=== PATIENT | female | born 1960 | race Caucasian/White ===

== ENCOUNTER 2017-02-05 07:50 | Inpatient (IN) | payer MEDICAID ==
--- NOTE | 2017-02-04 18:42 | GHP ---
[f rep st] PREOP HISTORY AND PHYSICAL DATE OF ADMISSION: 02/05/2017 DATE OF SURGERY: February 05, 2017. CHIEF COMPLAINT: Ventral hernia. HISTORY OF PRESENT ILLNESS: Jeri is a 56-year-old woman with an incisional hernia following her c holecystectomy in 2014. She has noticed it is increasing with time and is more painful with exercise . She occasionally will have vomiting due to the pain. She is a chronic pain patient and has RSD. She is currently using a fentanyl patch. She has tried an intrathecal pain pump from 2006 to 2014. She has a midline scar from a vertical-banded gastroplasty. Despite all efforts, she continues to ga in weight. PAST MEDICAL HISTORY: Chronic neck and back pain, RSD, anxiety, depression, hypertension, obesity. PAST SURGICAL HISTORY: Bariatric surgery, cholecystectomy, wrist surgery. ALLERGIES: Codeine, Imitrex, IV contrast, Toradol. FAMILY HISTORY: Significant for lung cancer and pancreatic cancer. SOCIAL HISTORY: She denies tobacco, alcohol, or recreational drug use. She has her master's in [employer]. REVIEW OF SYSTEMS: Significant for chronic pain, nausea, vomiting, weight gain. Otherwise, 10-point review of systems is negative aside from the HPI. PHYSICAL EXAMINATION: GENERAL: Pleasant, obese, well-groomed woman. HEENT: Normocephalic, atrauma tic. No hearing deficits. Pupils equal and round. No scleral icterus. Mucous membranes moist. NE CK: Trachea midline. RESPIRATORY: Clear to auscultation bilaterally. No increased work of breathi ng. CARDIOVASCULAR: Regular rate and rhythm. No peripheral edema. ABDOMEN: Bowel sounds present. Soft, nondistended. Midline scar healed. Partially reducible hernia superior to umbilicus. Tende r to palpation. SKIN: Warm and dry. PSYCH: Mood and affect normal. NEURO: Grossly intact. IMPRESSION AND PLAN: A 56-year-old woman with an incisional hernia. We discussed open repair with vic pyle. We discussed the risks of surgery including, but not limited to, heart attack, stroke, blood cl ots, or . We discussed the risk of infection, bleeding, damage to surrounding structures, or re currence and need for additional procedures. She understands the risks and would like to proceed. S he will likely be overnight observation. She will receive the antibiotics clip on sunglasses assembler to the operating r oom. /[id number]/MODL
[2017-02-05] MEDS ORDERED: LIDOCAINE 1% 2 ML INJ ONE (08:08)
[2017-02-05] MEDS ORDERED: ceFAZolin 3 GM in D5W 100 ML IV ONE (08:11)
[2017-02-05] MEDS ORDERED: LR 1,000 ML IV ONE (08:12)
[2017-02-05] MEDS ORDERED: LIDOCAINE 1% 2 ML INJ ID PRN (08:12)
[2017-02-05] MEDS ORDERED: BUPIVACAINE 0.5% 30 ML SDV ONE (08:45)
--- NOTE | 2017-02-05 09:07 | PDHPUP ---
History & Physical Update H&P update statement: This history and physical update is based on an assessment of the patient which was completed after admission or registration (within 24 hours), but prior to the surgery/procedure. H&P update: H&P reviewed & patient examined, no change in patient's condition since H&P completed
--- NOTE | 2017-02-05 09:15 | PDANEPAE ---
ANE History of Present Illness repair of ventral hernia ANE Past Medical History - Cardiovascular History Hx Hypertension: No Hx Arrhythmias: No Hx Chest Pain: No Hx Coronary Artery / Peripheral Vascular Disease: No Hx CHF / Valvular Disease: No Hx Palpitations: No - Pulmonary History Hx COPD: No Hx Asthma/Reactive Airway Disease: No Hx Recent Upper Respiratory Infection: No Hx Oxygen in Use at Home: No Hx Sleep Apnea: No Sleep Apnea Screening Result - Last Documented: Positive Pulmonary History Comment: POS HX SLEEP APNEA - HAD CORRECTIVE ENT SURG BUT STILL SNORES - Neurologic History Hx Cerebrovascular Accident: No Hx Seizures: No Hx Dementia: No - Endocrine History Hx Diabetes: No Obesity: severe - Renal History Hx Renal Disorders: No - Liver History Hx Hepatic Disorders: Yes Hepatic History Comment: CHOLECYSTECTOMY - Neurological & Psychiatric Hx Hx Neurological and Psychiatric Disorders: Yes Neurological / Psychiatric History Comment: CHRONIC PAIN / DEPRESSION, anxiety - Cancer History Hx Cancer: No - Congenital Disorder History Hx Congenital Disorders: No - GI History GERD: no Hx Gastrointestinal Disorders: Yes Gastrointestinal History Comment: ABD PAIN W/HERNIA & NAUSEA. DIFFICULTY KEEPING FOOD DOWN - Other Health History Other Health History: NEG - Chronic Pain History Chronic Pain: Yes (CHRONIC PAIN PT W/ NECK, L ARM, CRPS) - Surgical History Prior Surgeries: CHOLECYSTECTOMY. WRIST SURGERY L. ENT SURGERY FOR APNEA. GASTROPLASTY. PAIN PUMP ABD X3 SURG & REMOVED ANE Review of Systems Review of Systems: - Exercise capacity METS (RN): 4 METS ANE Patient History - Allergies Allergies/Adverse Reactions: ketorolac tromethamine [From Toradol] Allergy (Severe, Verified 11/14/15 15:20) Hives sumatriptan [From Imitrex] Allergy (Severe, Verified 11/14/15 15:20) Unknown sumatriptan succinate [From Imitrex] Allergy (Severe, Verified 11/14/15 15:20) Unknown codeine Allergy (Intermediate, Verified 11/14/15 15:20) Rash contrast dye Allergy (Severe, Uncoded 11/14/15 15:20) Anaphylaxis - Home Medications Home Medications: Alprazolam 02/04/17 [Last Taken 02/05/17] Aspirin 02/04/17 [Last Taken 01/08/17] Dicyclomine 02/04/17 [Last Taken 01/29/17] Fentanyl 02/04/17 [Last Taken 02/03/17] Ibuprofen 02/04/17 [Last Taken 01/22/17] Promethazine HCl 02/04/17 [Last Taken 02/05/17] Oxycodone HCl 15 mg 02/05/17 [Last Taken 02/05/17] - NPO status NPO Since - Liquids (Date): 02/04/17 NPO Since - Liquids (Time): 23:30 NPO Since - Solids (Date): 11/24/11 - Anes Hx Anes Hx: post operative nausea - Smoking Hx Smoking Status: Never smoked - Alcohol Use Alcohol Use: Rarely - Family Anes Hx Family Anes Hx: none Family Hx Anesthesia Complications: NEG ANE Labs/Vital Signs - Vital Signs Blood Pressure: 113/86 Heart Rate: 97 Respiratory Rate: 16 O2 Sat (%): 94 Height: 168.91 cm Weight: 127.006 kg ANE Physical Exam - Airway Neck exam: FROM Mallampati Score: Class 2 Mouth exam: poor dentition (upper caps), abnormal chin (short TMD) - Pulmonary Pulmonary: clear to auscultation - Cardiovascular Cardiovascular: regular rate and rhythym - ASA Status ASA Status: III ANE Anesthesia Plan Anesthesia Plan: general endotracheal anesthesia
[2017-02-05] MEDS ORDERED: MIDAZOLAM 2 MG/2 ML VIAL IVP ONE ×2 (09:17)
[2017-02-05] MEDS ORDERED: SCOPOLAMINE HYDROBROMIDE 1 MG/3 DAYS PATCH TD ONE ×2 (09:17→09:25)
[2017-02-05] MEDS ORDERED: MIDAZOLAM 2 MG/2 ML VIAL ONE ×2 (09:25→09:42)
[2017-02-05] MEDS ORDERED: fentaNYL 250 MCG/5 ML INJ ONE (09:25)
[2017-02-05] MEDS ORDERED: PROPOFOL/EMULSION 500 MG/50 ML BOTTLE IV ONE ×2 (09:25→10:23)
[2017-02-05] MEDS ORDERED: KETAMINE 100 MG/10 ML SYR ONE (09:25)
[2017-02-05] MEDS ORDERED: DEXAMETHASONE 4 MG/ML VIAL ONE (09:27)
[2017-02-05] MEDS ORDERED: ROCURONIUM 50 MG/5 ML VIAL ONE ×2 (09:27→10:42)
[2017-02-05] MEDS ORDERED: PHENYLEPHRINE HCL 100 MCG/ML SYR ONE (10:52)
[2017-02-05] MEDS ORDERED: PROPOFOL 200 MG/20 ML VIAL ONE ×2 (11:26→12:13)
[2017-02-05] MEDS ORDERED: ONDANSETRON 4 MG/2 ML VIAL ONE (12:00)
[2017-02-05] MEDS ORDERED: fentaNYL 100 MCG/2 ML INJ ONE ×3 (12:04→13:45)
[2017-02-05] MEDS ORDERED: diphenhydrAMINE 25 MG CAP PO PRN (12:43)
--- NOTE | 2017-02-05 12:43 | POSTOPPROG ---
Post Op Note Date of Operation: 02/05/17 Surgeon: Dilcia Copeland Economic Adviser: yuniel mathur Anesthesiologist: ki Anesthesia: GET(General Endotracheal) Pre-op Diagnosis: incarcerated ventral hernia Post-op Diagnosis: bowel-containing complex ventral hernia Indication: 56yo F with incarcerated ventral hernia and abdominal pain Procedure: open ventral hernia repair with mesh, L myofascial component release Findings: transverse colon and small bowel incarc. in hernia, swazi-cheese defect Inf/Abcess present in the surg proc area at time of surgery?: No EBL: Minimal Drains: Octaviano Garcia
[2017-02-05] MEDS ORDERED: SUGAMMADEX SODIUM 200 MG/2 ML VIAL IVP ONE ×2 (12:44)
[2017-02-05] MEDS ORDERED: NALOXONE HCL 0.4 MG/ML INJ IVP PRN (12:45)
[2017-02-05] MEDS ORDERED: HYDROmorphONE/DILAUDID 1 MG/ML INJ ONE ×2 (13:12→13:49)
[2017-02-05] MEDS: fentaNYL 100 MCG/2 ML INJ IVP PRN ×4 (13:14→13:59)
[2017-02-05] MEDS: HYDROmorphONE/DILAUDID 1 MG/ML INJ IVP PRN ×6 (13:16→14:13)
[2017-02-05] MEDS ORDERED: oxyCODONE IR 15 MG TAB PO ONE (14:15)
[2017-02-05] MEDS ORDERED: oxyCODONE IR 5 MG TAB ONE (14:17)
--- NOTE | 2017-02-05 15:57 | POSTANESTH ---
Post Anesthetic Evaluation Cardiovascular Status: Normal, Stable Respiratory Status: Similar to Pre-op Cond. Level of Consciousness/Mental Status: Can Participate in Eval Pain Control: Inadeq, Add Tx Required Nausea/Vomiting Control: Adequate, Prn Tx Ordered Complications Possibly Related to Anesthesia: None Noted (patient on chronic opioids, receiving additional IV/oral opioids for pain management. To step-down unit for monitoring.)
[2017-02-05] MEDS: OXYCODONE/APAP 5/325 TAB PO PRN ×2 (16:30→20:43)
[2017-02-05] MEDS ORDERED: DICYCLOMINE 10 MG CAP PO PRN (16:49)
[2017-02-05] MEDS: fentaNYL 25 MCG PATCH TD SCH (17:21)
[2017-02-05] MEDS: ONDANSETRON 4 MG/2 ML VIAL IVP PRN (20:14)
[2017-02-05] MEDS: HYDROmorphONE/DILAUDID 6 MG/30 ML PCA IV PRN (20:44)
[2017-02-05 22:04] LABS: HEMATOCRIT 43.7 % (38.0-47.0); HEMOGLOBIN 15.1 g/dL (12.6-16.3)
[2017-02-06] MEDS: oxyCODONE IR 15 MG TAB PO PRN ×3 (00:13→20:38)
[2017-02-06] MEDS: HYDROmorphONE/DILAUDID 6 MG/30 ML PCA IV PRN ×3 (05:24→20:12)
[2017-02-06] MEDS: ONDANSETRON DISINTEGRATING 4 MG TAB PO PRN ×2 (07:10→18:13)
--- NOTE | 2017-02-06 08:14 | GOP ---
[f rep st] OPERATIVE REPORT DATE OF OPERATION: 02/05/2017 SURGEON: Dilcia Copeland MD HOSPICE CARE CONSULTANT: LORRIE Bass. ANESTHESIA: General. ANESTHESIOLOGIST: Tee Ugarte MD. PREOPERATIVE DIAGNOSIS: Incarcerated ventral hernia. POSTOPERATIVE DIAGNOSIS: Incarcerated ventral hernia. PROCEDURE PERFORMED: Open ventral hernia repair with mesh and myofascial component release on the left side. FINDINGS: Multiple hernia defects with transverse colon and small bowel contained within SPECIMENS: None. ESTIMATED BLOOD LOSS: 25 cc. INDICATIONS: The patient is a 56-year-old woman who has had previous abdominal surgery. She developed a hernia which was thought to be approximately 5 cm above her umbilicus. Intra op she had multiple dutch cheese defects containing twisted loops of transverse colon and small bowel. The patient is a 56-year- old woman who has had multiple abdominal surgeries. She presented with difficulty tolerating food and pain at the site. DESCRIPTION OF PROCEDURE: Patient was brought into the operating room, placed supine on the table, and general anesthesia was administered. Her abdomen was prepped and draped in the usual sterile fashion. I infiltrated the area with 0.5% Marcaine prior to making incisions. I used a total of 30% of 0.5% Marcaine throughout the case. I made an incision from her umbilicus cephalad and carefully dissected down through her thin subcutaneous tissue. I immediately encountered hernia sac and dissected this away from the fascia. As I was dissecting this incarcerated piece of omentum there was also a piece of transverse colon that was twisted on itself. The bowel was completely viable. I used Metzenbaum scissors to completely free this from the fascia. Once I was able to free this I could evaluate her abdomen more fully. She had a small umbilical hernia and then she had several dutch cheese defects going up almost to her xiphoid process. I enlarged her incision and I fully reduced all these hernias. Another 1 of the hernias contained a piece of small bowel. After full reduction was made it became apparent that the fascia would not reapproximate, as it had retracted laterally. I then created a preperitoneal space, dividing the layer between the anterior and posterior rectus sheath. On the left side of her abdomen I performed a myofascial release and I was able to move the fascia much more toward midline nearly approximating that. On the right side of the abdomen due to her previous abdominal surgeries. I could not perform a release. The posterior rectus sheath was also very attenuated in this area. Since where the fascia came together was very tight I then elected to place a 20 x 25 piece of composite mesh. I sewed this, anchored this into place with 8-0 Prolene sutures. I then ran Prolene between each of the interrupted sutures, so that the mesh would be taut. I was able to close the posterior rectus sheath as much as I could in places. I closed the anterior rectus sheath with #1 PDS. I placed a drain over the mesh which was sutured into place with 3-0 nylon. I closed the deep layer of the subcutaneous tissue with 0 Vicryl. I closed skin with sunny. Sterile dressings were applied. She was awakened in the operating room, extubated, transferred to PACU in stable condition. /[id number]/MODL MTDD
[2017-02-06] MEDS: ENOXAPARIN 40 MG/0.4 ML SYR SC SCH ×2 (09:32→20:12)
[2017-02-06] MEDS: ASPIRIN 81 MG CHEWABLE TAB PO SCH (09:32)
--- NOTE | 2017-02-06 11:44 | SOAPPROG ---
SOAP Progress Note Assessment/Plan: Assessment: 56-YEAR-OLD FEMALE POSTOP LARGE VENTRAL HERNIA REPAIR AFEBRILE/VITAL SIGNS STABLE/AMBULATING/POOR P. O. INTAKE SO FOR/WOUND OKAY/ LARGE KRISTYN DRAINAGE OVERALL DOING VERY WELL FOR LARGE VENTRAL HERNIA Plan: SLOWLY ADVANCE DIET 02/06/17 11:43 Objective: Vital Signs Temp Pulse Resp BP Pulse Ox 37.2 C 103 H 16 119/70 93 02/06/17 07:49 02/06/17 07:49 02/06/17 07:49 02/06/17 07:49 02/06/17 07:49 Laboratory Results 02/05/17 21:45 02/05/17 02/06/17 02/07/17 05:59 05:59 05:59 Intake Total 3099 Output Total 695 Balance 2404 ICD10 Worksheet Patient Problems: Problems Problem Status Onset Ventral hernia Acute - ICD10 Problem Qualifiers (1) Ventral hernia
[2017-02-06 13:28] LABS: HEMOGLOBIN 12.6 g/dL (12.6-16.3)
[2017-02-06 16:54] LABS: HEMATOCRIT 38.4 % (38.0-47.0); HEMOGLOBIN 12.8 g/dL (12.6-16.3)
[2017-02-06] MEDS: HYDROmorphONE/DILAUDID 4 MG TAB PO PRN (17:03)
[2017-02-06] MEDS ORDERED: ALTEPLASE 2 MG VIAL IVP PRN (18:06)
[2017-02-06] MEDS: ACETAMINOPHEN 325 MG TAB PO PRN (20:39)
[2017-02-07] MEDS: HYDROmorphONE/DILAUDID 6 MG/30 ML PCA IV PRN ×8 (00:45→23:46)
[2017-02-07 04:47] LABS: HEMATOCRIT 33.6 % (38.0-47.0); HEMOGLOBIN 11.3 g/dL (12.6-16.3)
[2017-02-07] MEDS: ASPIRIN 81 MG CHEWABLE TAB PO SCH (09:08)
[2017-02-07] MEDS: ENOXAPARIN 40 MG/0.4 ML SYR SC SCH (10:39)
[2017-02-07 14:08] LABS: HEMATOCRIT 30.5 % (38.0-47.0); HEMOGLOBIN 10.4 g/dL (12.6-16.3)
--- NOTE | 2017-02-07 16:27 | SOAPPROG ---
NANCY Progress Note Assessment/Plan: Assessment: 56-YEAR-OLD FEMALE POSTOP LARGE VENTRAL HERNIA REPAIR AFEBRILE/VITAL SIGNS STABLE/AMBULATING/POOR P. O. INTAKE SO FOR/WOUND OKAY/ LARGE KRISTYN DRAINAGE OVERALL DOING VERY WELL FOR LARGE VENTRAL HERNIA Plan: SLOWLY ADVANCE DIET 02/06/17 11:43 02/07/17 16:26 VITAL SIGNS STABLE/AFEBRILE/STILL COMPLAINS OF INCISIONAL PAIN/HEMATOCRIT DOWN TO 30%/KRISTYN DRAINAGE 150 PER SHIFT WHICH IS A DECREASE ABDOMEN SOFT WITH DECREASED BOWEL SOUNDS AND NO FLATUS/REQUIRING LOTS OF PAIN MS. Objective: Vital Signs Temp Pulse Resp BP Pulse Ox 37.4 C 104 H 19 118/63 92 02/07/17 16:00 02/07/17 16:00 02/07/17 16:00 02/07/17 16:00 02/07/17 16:00 Laboratory Results 02/07/17 14:00 02/06/17 02/07/17 02/08/17 05:59 05:59 05:59 Intake Total 3095 894 831 Output Total 026 090 140 Balance 2404 -46 360 ICD10 Worksheet Patient Problems: Problems Problem Status Onset Ventral hernia Acute - ICD10 Problem Qualifiers (1) Ventral hernia
--- NOTE | 2017-02-07 17:06 | ASMTCMCOM ---
CM Note CM Note Notes: 56 year old female admitted for ventral hernia. Has a hx of chronic neck and back pain, RSD HTN, Obesity, Anxiety, Depression. Therapies recommending home with 24hr supervision. Date Signed: 02/07/2017 05:06 PM Electronically Signed By:Kasey Vitale LCSW
[2017-02-08] MEDS: oxyCODONE IR 15 MG TAB PO PRN ×2 (00:51→06:04)
[2017-02-08] MEDS: HYDROmorphONE/DILAUDID 6 MG/30 ML PCA IV PRN ×6 (03:47→21:08)
[2017-02-08 05:18] LABS: HEMATOCRIT 28.6 % (38.0-47.0); HEMOGLOBIN 9.6 g/dL (12.6-16.3); MEAN CELL HEMOGLOBIN 33.7 pg (27.9-34.1); MEAN CELL HEMOGLOBIN CONCENTR. 33.6 g/dL (32.4-36.7); MEAN CELL VOLUME 100.4 fL (81.5-99.8); RED BLOOD CELL COUNT 2.85 10^6/uL (4.18-5.33); RED CELL DISTRIBUTION WIDTH 11.9 % (11.5-15.2)
[2017-02-08 05:41] LABS: ANION GAP 10 mEq/L (8-16); CALCIUM 8.5 mg/dL (8.5-10.4); CARBON DIOXIDE 25 mEq/l (22-31); CHLORIDE 102 mEq/L (97-110); CREATININE 0.5 mg/dL (0.6-1.0); GLOMERULAR FILTRATION RATE > 60; GLUCOSE 86 mg/dL (70-100); MAGNESIUM 1.9 mg/dL (1.6-2.3); POTASSIUM 4.1 mEq/L (3.5-5.2); SODIUM 137 mEq/L (134-144)
[2017-02-08] MEDS ORDERED: METOCLOPRAMIDE 10 MG/2 ML VIAL ONE (06:03)
[2017-02-08] MEDS: ONDANSETRON 4 MG/2 ML VIAL IVP PRN ×4 (06:05→20:42)
[2017-02-08] MEDS: HYDROmorphONE/DILAUDID 4 MG TAB PO PRN (08:18)
[2017-02-08] MEDS: ASPIRIN 81 MG CHEWABLE TAB PO SCH (08:19)
--- NOTE | 2017-02-08 10:03 | SOAPPROG ---
SOAP Progress Note Assessment/Plan: Assessment: 56-YEAR-OLD FEMALE POSTOP LARGE VENTRAL HERNIA REPAIR AFEBRILE/VITAL SIGNS STABLE/AMBULATING/POOR P. O. INTAKE SO FOR/WOUND OKAY/ LARGE OLLIE DRAINAGE OVERALL DOING VERY WELL FOR LARGE VENTRAL HERNIA Plan: SLOWLY ADVANCE DIET 02/06/17 11:43 02/07/17 16:26 VITAL SIGNS STABLE/AFEBRILE/STILL COMPLAINS OF INCISIONAL PAIN/HEMATOCRIT DOWN TO 30%/OLLIE DRAINAGE 150 PER SHIFT WHICH IS A DECREASE ABDOMEN SOFT WITH DECREASED BOWEL SOUNDS AND NO FLATUS/REQUIRING LOTS OF PAIN MS. 02/08/17 10:02 doing better today/ low grade temp/ wound improving/ abd soft with some bs/ hct 28/ ollie significant bloody drainage will add txa for bleeding Objective: Vital Signs Temp Pulse Resp BP Pulse Ox 36.9 C 97 17 113/68 97 02/08/17 07:47 02/08/17 07:47 02/08/17 07:47 02/08/17 07:47 02/08/17 07:47 Laboratory Results 02/08/17 04:50 02/08/17 04:50 02/07/17 02/08/17 02/09/17 05:59 05:59 05:59 Intake Total 894 2350.4 Output Total 940 310 Balance -46 2040.4 ICD10 Worksheet Patient Problems: Problems Problem Status Onset Ventral hernia Acute - ICD10 Problem Qualifiers (1) Ventral hernia
[2017-02-08] MEDS ORDERED: MAGNESIUM HYDROXIDE 30 ML UDCUP PO PRN (11:13)
[2017-02-08] MEDS ORDERED: LACTULOSE 20 GM/30 ML UDCUP PO PRN (11:13)
[2017-02-08] MEDS ORDERED: TRANEXAMIC ACID 1,000 MG in NS 100 ML IV ONE (11:23)
--- NOTE | 2017-02-08 12:20 | SOAPPROG ---
SOAP Progress Note Assessment/Plan: Assessment: 56yo F POD#3 s/p large ventral hernia repair with mesh. RSD and chronic pain. Pain control issues over the weekend. CIRCUS SUPERVISOR dilaudid, PO dilaudid and oxy IR, fentanyl patch. Clear liquids No flatus or BM. +BS Abdominal wall hematoma on CT yesterday. Hold lovenox. Give TXA today per Dr. Bassett H/H trending down, will continue to monitor Continue inpatient. PT and OT S: pain control issues over the weekend but pain currently controlled. No nausea. No flatus or BM. O: laying in bed, comfortable, very pleasant and conversant No increased WOB Abd +BS, softly distended, tender left abdomen, midline dressing intact. Drain thin sanguinous. Objective: Vital Signs Temp Pulse Resp BP Pulse Ox 36.7 C 100 16 129/58 H 99 02/08/17 12:00 02/08/17 12:00 02/08/17 12:00 02/08/17 12:00 02/08/17 12:00 Laboratory Results 02/08/17 04:50 02/08/17 04:50 02/07/17 02/08/17 02/09/17 05:59 05:59 05:59 Intake Total 894 2350.4 750 Output Total 940 310 30 Balance -46 2040.4 720 ICD10 Worksheet Patient Problems: Problems Problem Status Onset Ventral hernia Acute
[2017-02-08] MEDS: PROMETHAZINE HCL 25 MG/ML INJ IVP PRN ×3 (13:40→18:26)
[2017-02-08 13:57] LABS: HEMATOCRIT 29.6 % (38.0-47.0); HEMOGLOBIN 10.1 g/dL (12.6-16.3)
[2017-02-08] MEDS: BISACODYL 10 MG SUPP PR PRN (15:31)
[2017-02-08] MEDS: fentaNYL 25 MCG PATCH TD SCH (17:03)
[2017-02-08] MEDS: NS 1,000 ML IV SCH (18:40)
[2017-02-08] MEDS: METOCLOPRAMIDE 10 MG/2 ML VIAL IVP PRN ×2 (18:43→23:57)
--- NOTE | 2017-02-08 19:33 | SOAPPROG ---
[facility] Progress Note Assessment/Plan: Assessment: 56-YEAR-OLD FEMALE POSTOP LARGE VENTRAL HERNIA REPAIR AFEBRILE/VITAL SIGNS STABLE/AMBULATING/POOR P. O. INTAKE SO FOR/WOUND OKAY/ LARGE OLLIE DRAINAGE OVERALL DOING VERY WELL FOR LARGE VENTRAL HERNIA Plan: SLOWLY ADVANCE DIET 02/06/17 11:43 02/07/17 16:26 VITAL SIGNS STABLE/AFEBRILE/STILL COMPLAINS OF INCISIONAL PAIN/HEMATOCRIT DOWN TO 30%/OLLIE DRAINAGE 150 PER SHIFT WHICH IS A DECREASE ABDOMEN SOFT WITH DECREASED BOWEL SOUNDS AND NO FLATUS/REQUIRING LOTS OF PAIN MS. 02/08/17 10:02 doing better today/ low grade temp/ wound improving/ abd soft with some bs/ hct 28/ ollie significant bloody drainage will add txa for bleeding 02/08/17 19:30 called to see pt again, this time for nausea and emesis/ vomited 1.5 liters of brownish fluid/ abd soft, wound ok, afebrile, some flatus with suppository may need relistor/ will start with reglan and ng Objective: Vital Signs Temp Pulse Resp BP Pulse Ox 36.7 C 101 H 12 131/72 H 99 02/08/17 12:00 02/08/17 18:00 02/08/17 18:00 02/08/17 18:00 02/08/17 18:00 Laboratory Results 02/08/17 13:45 02/08/17 04:50 02/07/17 02/08/17 02/09/17 05:59 05:59 05:59 Intake Total 894 2350.4 1453.2 Output Total 940 310 385 Balance -46 2040.4 1068.2 ICD10 Worksheet Patient Problems: Problems Problem Status Onset Ventral hernia Acute - ICD10 Problem Qualifiers (1) Ventral hernia
[2017-02-08] MEDS ORDERED: LIDOCAINE 2% JELLY 5 ML TUBE TP ONE (19:45)
[2017-02-08] MEDS: SENNOSIDES/DOCUSATE SODIUM TAB PO SCH (20:42)
[2017-02-09] MEDS: HYDROmorphONE/DILAUDID 6 MG/30 ML PCA IV PRN ×7 (01:03→21:57)
[2017-02-09] MEDS: PROMETHAZINE HCL 25 MG/ML INJ IVP PRN ×4 (01:03→20:58)
[2017-02-09] MEDS: ONDANSETRON 4 MG/2 ML VIAL IVP PRN ×4 (02:21→18:24)
[2017-02-09] MEDS: NS 1,000 ML IV SCH ×3 (02:26→17:14)
[2017-02-09] MEDS: METOCLOPRAMIDE 10 MG/2 ML VIAL IVP PRN ×3 (06:23→23:11)
[2017-02-09] MEDS: ASPIRIN 81 MG CHEWABLE TAB PO SCH (08:14)
[2017-02-09] MEDS: SENNOSIDES/DOCUSATE SODIUM TAB PO SCH (09:37)
--- NOTE | 2017-02-09 15:54 | SOAPPROG ---
SOAP Progress Note Assessment/Plan: Assessment: 56yo F POD#4 s/p large ventral hernia repair with mesh. RSD and chronic pain. Acute on chronic pain. IMMIGRATION MANAGER dilaudid, PO dilaudid and oxy IR, fentanyl patch. NPO d/t worsening nausea/vomiting yesterday +BS and flatus. No BM. Bowel protocol AXR yesterday with ileus. NG tube placed d/t persistent nausea/vomiting. Abdominal wall hematoma -stable. Monitor H/H Continue inpatient. PT and OT S: terrible nausea and vomiting last night. symptoms improved with NG tube. Motivated to walk several times today O: laying in bed, comfortable, pleasant and conversant NG tube thin bilious output No increased WOB Abd +BS, softly distended, tender left abdomen, midline dressing intact. Drain thin sanguinous. Abdominal wall more soft than yesterday Objective: Vital Signs Temp Pulse Resp BP Pulse Ox 37.4 C 97 12 146/86 H 98 02/09/17 11:38 02/09/17 13:56 02/09/17 13:56 02/09/17 13:56 02/09/17 13:56 Laboratory Results 02/08/17 13:45 02/08/17 04:50 02/08/17 02/09/17 02/10/17 05:59 05:59 05:59 Intake Total 2350.4 3004.2 Output Total 310 1495 Balance 2040.4 1509.2 ICD10 Worksheet Patient Problems: Problems Problem Status Onset Ventral hernia Acute
[2017-02-09] MEDS: BENZOCAINE (ORAJEL) GEL 11.9GM TUBE TP PRN (16:01)
[2017-02-09] MEDS: LORazepam 2 MG/ML INJ IVP PRN (23:59)
[2017-02-10] MEDS ORDERED: LIDOCAINE 2% JELLY 5 ML TUBE ONE (01:47)
[2017-02-10] MEDS: HYDROmorphONE/DILAUDID 6 MG/30 ML PCA IV PRN ×7 (01:50→22:44)
[2017-02-10] MEDS: PROMETHAZINE HCL 25 MG/ML INJ IVP PRN (02:55)
[2017-02-10] MEDS ORDERED: LIDOCAINE 2% JELLY 5 ML TUBE TP PRN (03:12)
[2017-02-10] MEDS: METOCLOPRAMIDE 10 MG/2 ML VIAL IVP PRN ×2 (05:21→17:11)
[2017-02-10] MEDS: NS 1,000 ML IV SCH ×2 (05:32→16:33)
[2017-02-10 05:35] LABS: % IMMATURE GRANULYOCYTES 0.6 % (0.0-1.1); ABSOLUTE IMMATURE GRANULOCYTES 0.04 10^3/uL (0.00-0.10); ADD DIFF? NO; ADD MORPH? NO; ADD SCAN? NO; ATYPICAL LYMPHOCYTE FLAG 0 (0-99); FRAGMENT RBC FLAG 0 (0-99); HEMATOCRIT 28.7 % (38.0-47.0); HEMOGLOBIN 9.6 g/dL (12.6-16.3); LEFT SHIFT FLG 10 (0-99); LIPEMIA HEMOLYSIS FLAG 80 (0-99); MEAN CELL HEMOGLOBIN 33.2 pg (27.9-34.1); MEAN CELL HEMOGLOBIN CONCENTR. 33.4 g/dL (32.4-36.7); MEAN CELL VOLUME 99.3 fL (81.5-99.8); MEAN PLATELET VOLUME 10.2 fL (8.7-11.7); PLATELET CLUMPS FLAG 0 (0-99); PLATELET COUNT 242 10^3/uL (150-400); RED BLOOD CELL COUNT 2.89 10^6/uL (4.18-5.33); RED CELL DISTRIBUTION WIDTH 11.9 % (11.5-15.2)
[2017-02-10] MEDS: ONDANSETRON 4 MG/2 ML VIAL IVP PRN (07:52)
[2017-02-10] MEDS: BENZOCAINE (ORAJEL) GEL 11.9GM TUBE TP PRN ×2 (07:52→13:10)
[2017-02-10] MEDS: BISACODYL 10 MG SUPP PR PRN (10:16)
--- NOTE | 2017-02-10 11:35 | ASMTCMCOM ---
CM Note CM Note Notes: PT recommends home with 24 hour supervision and OT recommends home. Patient lives in [place] with her . Patient will most likely d/c independently. CM is available if d/c needs change. Date Signed: 02/10/2017 11:35 AM Electronically Signed By:Windy Beltran LCSW
--- NOTE | 2017-02-10 13:01 | SOAPPROG ---
SOAP Progress Note Assessment/Plan: Assessment: 56yo F POD#5 s/p large ventral hernia repair with mesh. RSD and chronic pain. Acute on chronic pain. VESSEL SCRAPPER dilaudid, PO dilaudid and oxy IR, fentanyl patch. NPO - May have a popsicle or 8oz or clear liquids tonight if NG comes out +BM and flatus today. Bowel protocol NG clamp trial - off suction x 4 hours. return to suction x1 hour. If <150 out in 1 hour may remove NG. Abdominal wall hematoma -stable. H/H stable Continue inpatient. PT and OT. Seen c Dr. Copeland S: feels like lack of sleep is contributing to intermittent negativity. O: sitting up in chait, comfortable, pleasant and conversant NG tube thin clear No increased WOB Abd +BS, softly distended, tender left abdomen, midline dressing intact. Drain thin sanguinous 02/10/17 13:59 Objective: Vital Signs Temp Pulse Resp BP Pulse Ox 37.1 C 85 14 141/78 H 97 02/10/17 12:00 02/10/17 12:00 02/10/17 12:00 02/10/17 12:00 02/10/17 12:00 Laboratory Results 02/10/17 05:20 02/08/17 04:50 02/09/17 02/10/17 02/11/17 05:59 05:59 05:59 Intake Total 3004.2 2340.4 Output Total 1495 725 155 Balance 1509.2 1615.4 -155 ICD10 Worksheet Patient Problems: Problems Problem Status Onset Ventral hernia Acute
[2017-02-10] MEDS: LORazepam 2 MG/ML INJ IVP PRN ×2 (14:15→20:41)
[2017-02-11] MEDS: HYDROmorphONE/DILAUDID 6 MG/30 ML PCA IV PRN ×7 (01:43→21:32)
[2017-02-11] MEDS: LORazepam 2 MG/ML INJ IVP PRN ×3 (03:01→20:22)
[2017-02-11] MEDS: METOCLOPRAMIDE 10 MG/2 ML VIAL IVP PRN (09:54)
--- NOTE | 2017-02-11 10:11 | SOAPPROG ---
SOAP Progress Note Assessment/Plan: Assessment: 56yo F POD#6 s/p large ventral hernia repair with mesh. RSD and chronic pain. Acute on chronic pain. 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 NPO - May have a popsicle or 8oz or clear liquids +flatus today. Bowel protocol Abdominal wall hematoma -stable. H/H stable Continue inpatient. PT and OT. Added Protonix S: Feeling well with NG tube out, trying to sleep more, pt feels like lack of sleep is contributing to intermittent negativity. Requesting suppository. Some GERD O: lying in bed, comfortable, pleasant and conversant No increased WOB Abd +quiet BS, softly distended, tender left abdomen, midline dressing intact. Drain thin sanguinous Plan: 02/11/17 10:05 02/11/17 10:27 Objective: Vital Signs Temp Pulse Resp BP Pulse Ox 37.6 C 90 18 125/76 H 95 02/11/17 07:16 02/11/17 07:16 02/11/17 07:16 02/11/17 07:16 02/11/17 07:16 Laboratory Results 02/10/17 05:20 02/08/17 04:50 02/10/17 02/11/17 02/12/17 05:59 05:59 05:59 Intake Total 2340.4 831 Output Total 725 490 Balance 1615.4 341 ICD10 Worksheet Patient Problems: Problems Problem Status Onset Ventral hernia Acute
[2017-02-11] MEDS: PANTOPRAZOLE SODIUM 40 MG VIAL IVP SCH (11:08)
[2017-02-11] MEDS: BISACODYL 10 MG SUPP PR PRN (14:24)
[2017-02-11] MEDS: fentaNYL 25 MCG PATCH TD SCH (17:44)
[2017-02-12] MEDS: HYDROmorphONE/DILAUDID 6 MG/30 ML PCA IV PRN ×5 (00:58→20:00)
[2017-02-12] MEDS: LORazepam 2 MG/ML INJ IVP PRN (03:28)
--- NOTE | 2017-02-12 08:22 | SOAPPROG ---
SOAP Progress Note Assessment/Plan: Assessment: 56yo F POD#7 s/p large ventral hernia repair with mesh. RSD and chronic pain. Acute on chronic pain. RETURNED MATERIALS INSPECTOR dilaudid, PO dilaudid and oxy IR, fentanyl patch. Transition to PO pain meds Clear liquids +BM and flatus. Bowel protocol Abdominal wall hematoma -stable. H/H stable. Recheck labs tomorrow Continue inpatient. PT and OT. Seen c Dr. Copeland S: still sleep deprived. feels restless. O: laying in bed, comfortable, pleasant and conversant No increased WOB Abd +BS, softly distended, nontender, midline incision CDI. Drain thin dark sanguinous Objective: Vital Signs Temp Pulse Resp BP Pulse Ox 37.0 C 103 H 20 143/94 H 94 02/12/17 07:43 02/12/17 07:43 02/12/17 07:43 02/12/17 07:43 02/12/17 07:43 Laboratory Results 02/10/17 05:20 02/08/17 04:50 02/11/17 02/12/17 02/13/17 05:59 05:59 05:59 Intake Total 831 1000 1200 Output Total 490 105 50 Balance 189 248 5601 ICD10 Worksheet Patient Problems: Problems Problem Status Onset Ventral hernia Acute
[2017-02-12] MEDS ORDERED: NS 1,000 ML IV SCH (08:30)
[2017-02-12] MEDS: PANTOPRAZOLE SODIUM 40 MG VIAL IVP SCH (08:32)
[2017-02-12] MEDS: HYDROmorphONE/DILAUDID 4 MG TAB PO PRN ×2 (08:47→17:35)
[2017-02-12] MEDS: D5W 1/2 NS W/ 20 KCl/L 1,000 ML IV SCH (14:37)
[2017-02-12] MEDS: SENNOSIDES/DOCUSATE SODIUM TAB PO SCH (20:05)
[2017-02-12] MEDS: ENOXAPARIN 40 MG/0.4 ML SYR SC SCH (20:05)
[2017-02-12] MEDS: POLYETHYLENE GLYCOL 3350 17 GM PKT PO PRN (20:05)
[2017-02-13] MEDS: oxyCODONE IR 15 MG TAB PO PRN (00:45)
[2017-02-13] MEDS: ONDANSETRON DISINTEGRATING 4 MG TAB PO PRN (04:16)
[2017-02-13] MEDS: HYDROmorphONE/DILAUDID 6 MG/30 ML PCA IV PRN ×3 (04:46→19:21)
[2017-02-13 06:31] LABS: % IMMATURE GRANULYOCYTES 1.4 % (0.0-1.1); ABSOLUTE IMMATURE GRANULOCYTES 0.08 10^3/uL (0.00-0.10); ADD DIFF? NO; ADD MORPH? NO; ADD SCAN? NO; ATYPICAL LYMPHOCYTE FLAG 20 (0-99); FRAGMENT RBC FLAG 0 (0-99); HEMOGLOBIN 9.5 g/dL (12.6-16.3); LEFT SHIFT FLG 10 (0-99); LIPEMIA HEMOLYSIS FLAG 90 (0-99); MEAN CELL HEMOGLOBIN 32.9 pg (27.9-34.1); MEAN CELL HEMOGLOBIN CONCENTR. 33.9 g/dL (32.4-36.7); MEAN CELL VOLUME 96.9 fL (81.5-99.8); MEAN PLATELET VOLUME 10.2 fL (8.7-11.7); PLATELET CLUMPS FLAG 10 (0-99); PLATELET COUNT 261 10^3/uL (150-400); RED BLOOD CELL COUNT 2.89 10^6/uL (4.18-5.33)
[2017-02-13 06:48] LABS: ANION GAP 7 mEq/L (8-16); CALCIUM 8.4 mg/dL (8.5-10.4); CARBON DIOXIDE 30 mEq/l (22-31); CHLORIDE 102 mEq/L (97-110); CREATININE 0.5 mg/dL (0.6-1.0); GLOMERULAR FILTRATION RATE > 60; GLUCOSE 115 mg/dL (70-100); POTASSIUM 3.7 mEq/L (3.5-5.2); SODIUM 139 mEq/L (134-144)
[2017-02-13] MEDS: METOCLOPRAMIDE 10 MG/2 ML VIAL IVP PRN ×2 (07:26→17:40)
[2017-02-13] MEDS: SENNOSIDES/DOCUSATE SODIUM TAB PO SCH ×2 (08:10→20:26)
[2017-02-13] MEDS: ENOXAPARIN 40 MG/0.4 ML SYR SC SCH ×2 (08:10→20:27)
[2017-02-13] MEDS: PANTOPRAZOLE SODIUM 40 MG VIAL IVP SCH (08:10)
[2017-02-13] MEDS: BISACODYL 10 MG SUPP PR PRN (08:11)
[2017-02-13] MEDS: D5W 1/2 NS W/ 20 KCl/L 1,000 ML IV SCH (10:36)
--- NOTE | 2017-02-13 11:07 | ASMTCMCOM ---
CM Note CM Note Notes: Plan remains the same, pt will dc home w/support of when medically stable. CM available for any changes. Date Signed: 02/13/2017 11:06 AM Electronically Signed By:Olamide Ohara RN
[2017-02-13] MEDS: ONDANSETRON 4 MG/2 ML VIAL IVP PRN (18:43)
--- NOTE | 2017-02-13 20:08 | SOAPPROG ---
SOAP Progress Note Assessment/Plan: Assessment: 56yo F s/p large ventral hernia repair with mesh. RSD and chronic pain. Acute on chronic pain. HEATING UNIT MECHANIC dilaudid - WEAN (OFF tomorrow hopefully), PO dilaudid and oxy IR, fentanyl patch. Transition to PO pain meds. Discussed pain meds with pharmacy Advance to regular diet +BM and flatus. Bowel protocol Abdominal wall hematoma -stable. H/H stable. Continue inpatient, hopefully home in next couple days when off IV pain meds. PT and OT. Discussed c Dr. Copeland S: still sleep deprived. pain controlled now but worried about discontinuing IV pain meds. +BM, no nausea, hungry O: sitting upright in chair napping but awakes easily, comfortable, pleasant and conversant No increased WOB Abd +BS, softly distended, nontender, midline incision CDI. Drain thin dark sanguinous Objective: Vital Signs Temp Pulse Resp BP Pulse Ox 36.9 C 88 18 125/89 H 96 02/13/17 19:22 02/13/17 19:22 02/13/17 19:22 02/13/17 19:22 02/13/17 19:22 Laboratory Results 02/13/17 06:15 02/13/17 06:15 02/12/17 02/13/17 02/14/17 05:59 05:59 05:59 Intake Total 1000 3050 568 Output Total 105 930 275 Balance 895 2120 293 ICD10 Worksheet Patient Problems: Problems Problem Status Onset Ventral hernia Acute
[2017-02-13] MEDS: LORazepam 2 MG/ML INJ IVP PRN (21:15)
[2017-02-14] MEDS: PROMETHAZINE HCL 25 MG/ML INJ IVP PRN ×3 (03:38→17:51)
[2017-02-14] MEDS: D5W 1/2 NS W/ 20 KCl/L 1,000 ML IV SCH (07:09)
[2017-02-14] MEDS: oxyCODONE IR 15 MG TAB PO PRN ×2 (07:37→16:36)
[2017-02-14] MEDS: SENNOSIDES/DOCUSATE SODIUM TAB PO SCH ×2 (07:37→20:30)
[2017-02-14] MEDS: ENOXAPARIN 40 MG/0.4 ML SYR SC SCH ×2 (07:38→20:31)
[2017-02-14] MEDS: POLYETHYLENE GLYCOL 3350 17 GM PKT PO PRN (07:47)
[2017-02-14] MEDS: PANTOPRAZOLE SODIUM 40 MG VIAL IVP SCH (07:47)
[2017-02-14] MEDS: HYDROmorphONE/DILAUDID 6 MG/30 ML PCA IV PRN (09:01)
[2017-02-14] MEDS: METOCLOPRAMIDE 10 MG/2 ML VIAL IVP PRN (15:12)
[2017-02-14] MEDS ORDERED: HYDROmorphONE/DILAUDID 4 MG TAB PO PRN (15:16)
[2017-02-14] MEDS ORDERED: HYDROmorphONE/DILAUDID 6 MG/30 ML PCA IV PRN (15:18)
--- NOTE | 2017-02-14 16:43 | ASMTCMCOM ---
CM Note CM Note Notes: Reviewed chart regarding discharge plan, pt's progress. PT/OT cleared pt, no needs identified. Spoke w/ Osmar from OT, pt cont to have difficulty wiping w/ bowel movements, unable to twist torso. Osmar suggested possibility of home care; discussed the fact home care would be unable to time visits according to pt's bowel needs. OT to cont to work w/ pt on ADLs. Attempted to meet w/ pt to discuss possibility of home care; pt sleeping. CM will cont to follow for any potential needs. Current discharge plan: Home independently Date Signed: 02/14/2017 04:43 PM Electronically Signed By:Gabrielle Barnett RN
--- NOTE | 2017-02-14 17:26 | SOAPPROG ---
SOAP Progress Note Assessment/Plan: Assessment: 56yo F s/p large ventral hernia repair with mesh. RSD and chronic pain. Acute on chronic pain. VP MEDICAL dilaudid - WEAN (OFF tomorrow hopefully), oxy IR, fentanyl patch. Transition to PO pain meds. Regular diet +BM and flatus. Bowel protocol Abdominal wall hematoma -stable. H/H stable. Continue inpatient, hopefully home in next couple days when off IV pain meds. PT and OT. S: pain controlled now but worried about discontinuing IV pain meds. +BM. Increased nausea today - ? related to constipation. She also reports that PO dilaudid is not a home med for her so will DC O: sitting upright in chair napping but awakes easily, comfortable, pleasant and conversant No increased WOB Abd +BS, softly distended, nontender, midline incision CDI. Drain thin dark sanguinous Objective: Vital Signs Temp Pulse Resp BP Pulse Ox 36.9 C 80 14 134/85 H 93 02/14/17 16:37 02/14/17 16:37 02/14/17 16:37 02/14/17 16:37 02/14/17 16:37 Laboratory Results 02/13/17 06:15 02/13/17 06:15 02/13/17 02/14/17 02/15/17 05:59 05:59 05:59 Intake Total 3050 1418 600 Output Total 930 715 250 Balance 2120 703 350 ICD10 Worksheet Patient Problems: Problems Problem Status Onset Ventral hernia Acute
[2017-02-14] MEDS ORDERED: fentaNYL 25 MCG PATCH TD SCH (17:30)
[2017-02-14] MEDS: LORazepam 2 MG/ML INJ IVP PRN (20:42)
[2017-02-15] MEDS: oxyCODONE IR 15 MG TAB PO PRN ×3 (00:50→17:09)
[2017-02-15] MEDS: D5W 1/2 NS W/ 20 KCl/L 1,000 ML IV SCH (03:02)
[2017-02-15] MEDS: SENNOSIDES/DOCUSATE SODIUM TAB PO SCH ×2 (09:19→20:11)
[2017-02-15] MEDS: POLYETHYLENE GLYCOL 3350 17 GM PKT PO PRN (09:19)
[2017-02-15] MEDS: ENOXAPARIN 40 MG/0.4 ML SYR SC SCH ×2 (09:20→20:12)
[2017-02-15] MEDS: PANTOPRAZOLE SODIUM 40 MG VIAL IVP SCH (09:23)
[2017-02-15] MEDS: PROMETHAZINE HCL 25 MG/ML INJ IVP PRN (10:43)
--- NOTE | 2017-02-15 10:50 | ASMTCMCOM ---
CM Note CM Note Notes: CM met w/ pt for dispo planning. Pt reports that OT has ordered her a "butt wiper". Pt does not anticipate having any needs. CM available for changes. Plan: Independent Date Signed: 02/15/2017 10:50 AM Electronically Signed By:SHARATH Long
--- NOTE | 2017-02-15 12:35 | SOAPPROG ---
SOAP Progress Note Assessment/Plan: Assessment/Plan: - 56yo F s/p complex ventral hernia repair - VSS, HDS - pain controlled, weaning TABLEAU ANALYST today in favor of IV push - Tolerating diet, nausea seems to be correlated with BMs and when not moving them it appears worse - OOB, ambulate. Wean TABLEAU ANALYST - 02/15/17 12:33 Subjective: doing ok, having some nausea but controlled and she is tolerating some PO intake Objective: Vital Signs Temp Pulse Resp BP Pulse Ox 37.1 C 84 12 159/96 H 96 02/15/17 12:00 02/15/17 12:00 02/15/17 12:00 02/15/17 12:00 02/15/17 12:00 Laboratory Results 02/13/17 06:15 02/13/17 06:15 02/14/17 02/15/17 02/16/17 05:59 05:59 05:59 Intake Total 1418 1723 Output Total 715 280 10 Balance 703 1443 -10 ICD10 Worksheet Patient Problems: Problems Problem Status Onset Ventral hernia Acute
[2017-02-15] MEDS: ONDANSETRON DISINTEGRATING 4 MG TAB PO PRN ×2 (14:17→20:10)
[2017-02-15] MEDS: fentaNYL 50 MCG PATCH TD SCH (14:18)
[2017-02-15] MEDS: HYDROmorphONE/DILAUDID 1 MG/ML INJ IVP PRN ×4 (14:32→23:22)
[2017-02-15] MEDS: LORazepam 2 MG/ML INJ IVP PRN (20:11)
[2017-02-16] MEDS: HYDROmorphONE/DILAUDID 1 MG/ML INJ IVP PRN ×3 (07:00→19:24)
[2017-02-16] MEDS: PANTOPRAZOLE SODIUM 40 MG VIAL IVP SCH (08:32)
[2017-02-16] MEDS: ENOXAPARIN 40 MG/0.4 ML SYR SC SCH ×2 (08:32→20:23)
[2017-02-16] MEDS: SENNOSIDES/DOCUSATE SODIUM TAB PO SCH ×2 (08:35→20:23)
--- NOTE | 2017-02-16 10:42 | SOAPPROG ---
SOAP Progress Note Assessment/Plan: Assessment: 56yo F s/p large ventral hernia repair with mesh. RSD and chronic pain. Acute on chronic pain. On po pain meds and patch Regular diet Had emesis again last night - having gas and bowel movements. Also described emesis pre-op. Will check abdominal x ray Abdominal wall hematoma -stable. Continue inpatient. PT and OT. S: Had emesis again last evening. Eating well without discomfort. Having a lot of gas and large BMs. O: Sitting in bed, cheerful Lungs CTAB Regular rate BS present Much softer Incision cdi Dark serosanguinous fluid in KRISTYN drain Plan: 02/11/17 10:05 02/11/17 10:27 02/16/17 10:39 Objective: Vital Signs Temp Pulse Resp BP Pulse Ox 36.7 C 71 16 121/70 H 96 02/16/17 07:32 02/16/17 07:32 02/16/17 07:32 02/16/17 07:32 02/16/17 07:32 Laboratory Results 02/13/17 06:15 02/13/17 06:15 02/15/17 02/16/17 02/17/17 05:59 05:59 05:59 Intake Total 1723 1425 Output Total 280 113 Balance 1443 1312 ICD10 Worksheet Patient Problems: Problems Problem Status Onset Ventral hernia Acute
[2017-02-16] MEDS: oxyCODONE IR 15 MG TAB PO PRN (14:45)
[2017-02-16] MEDS: ONDANSETRON DISINTEGRATING 4 MG TAB PO PRN (18:32)
[2017-02-16] MEDS: LORazepam 2 MG/ML INJ IVP PRN (20:23)
[2017-02-17] MEDS: HYDROmorphONE/DILAUDID 1 MG/ML INJ IVP PRN ×4 (02:39→17:53)
[2017-02-17] MEDS: LORazepam 2 MG/ML INJ IVP PRN ×2 (04:59→21:45)
[2017-02-17 05:23] LABS: ADD DIFF? YES; ADD MORPH? NO; ADD SCAN? NO; ATYPICAL LYMPHOCYTE FLAG 40 (0-99); FRAGMENT RBC FLAG 0 (0-99); HEMATOCRIT 29.9 % (38.0-47.0); LEFT SHIFT FLG 30 (0-99); LIPEMIA HEMOLYSIS FLAG 80 (0-99); MEAN CELL HEMOGLOBIN 32.9 pg (27.9-34.1); MEAN CELL HEMOGLOBIN CONCENTR. 33.4 g/dL (32.4-36.7); MEAN CELL VOLUME 98.4 fL (81.5-99.8); MEAN PLATELET VOLUME 10.6 fL (8.7-11.7); PLATELET CLUMPS FLAG 10 (0-99); PLATELET COUNT 320 10^3/uL (150-400); RED BLOOD CELL COUNT 3.04 10^6/uL (4.18-5.33); RED CELL DISTRIBUTION WIDTH 12.2 % (11.5-15.2)
[2017-02-17 05:40] LABS: ALANINE AMINOTRANSFERASE 51 IU/L (9-52); ALBUMIN 2.6 g/dL (3.5-5.0); ALKALINE PHOSPHATASE 52 IU/L (38-126); ANION GAP 5 mEq/L (8-16); ASPARTATE AMINOTRANSFERASE 32 IU/L (14-46); CARBON DIOXIDE 32 mEq/l (22-31); CHLORIDE 100 mEq/L (97-110); CREATININE 0.6 mg/dL (0.6-1.0); GLOMERULAR FILTRATION RATE > 60; GLUCOSE 92 mg/dL (70-100); POTASSIUM 3.9 mEq/L (3.5-5.2); SODIUM 137 mEq/L (134-144); TOTAL PROTEIN 4.9 g/dL (6.3-8.2)
[2017-02-17 05:56] LABS: CALCIUM 8.5 mg/dL (8.5-10.4)
[2017-02-17 06:18] LABS: GIANT PLATELETS PRESENT; LARGE PLATELETS PRESENT; POLYCHROMASIA 1+; TOXIC GRANULATION PRESENT
[2017-02-17 06:19] LABS: BILIRUBIN,TOTAL 0.5 mg/dL (0.1-1.4); PLATELET ESTIMATE ADEQUATE (ADEQ)
[2017-02-17] MEDS: PANTOPRAZOLE SODIUM 40 MG VIAL IVP SCH (09:06)
[2017-02-17] MEDS: ENOXAPARIN 40 MG/0.4 ML SYR SC SCH ×2 (09:06→21:44)
[2017-02-17] MEDS: SENNOSIDES/DOCUSATE SODIUM TAB PO SCH ×2 (09:07→21:43)
--- NOTE | 2017-02-17 10:18 | SOAPPROG ---
SOAP Progress Note Assessment/Plan: Assessment: 56yo F s/p large ventral hernia repair with mesh. RSD and chronic pain. Acute on chronic pain. Now off VP CARDIOVASCULAR - PRN IV dilaudid, oxy IR, fentanyl patch. Transition to PO pain meds. Regular diet +BM and flatus Abdominal wall hematoma -stable. H/H improving. Continue inpatient, hopefully home in next couple days when off IV pain meds. PT and OT. S: feeling well, no new complaints today. feels like pain is well controlled without VP CARDIOVASCULAR. Now having diarrhea O: laying in bed, comfortable, pleasant and conversant No increased WOB Abd +BS, softly distended, nontender, midline incision CDI. Drain thin dark sanguinous. Ecchymosis stable Objective: Vital Signs Temp Pulse Resp BP Pulse Ox 36.6 C 77 15 116/66 94 02/17/17 08:00 02/17/17 08:00 02/17/17 08:00 02/17/17 08:00 02/17/17 08:00 Laboratory Results 02/17/17 05:00 02/17/17 05:00 02/16/17 02/17/17 02/18/17 05:59 05:59 05:59 Intake Total 1425 1355 Output Total 113 110 Balance 1312 1245 ICD10 Worksheet Patient Problems: Problems Problem Status Onset Ventral hernia Acute
--- NOTE | 2017-02-17 10:57 | ASMTCMCOM ---
CM Note CM Note Notes: Plan remains the same, pt will dc home w/support of when medically stable. CM available for any changes. Date Signed: 02/17/2017 10:57 AM Electronically Signed By:Olamide Ohara RN
[2017-02-17] MEDS: oxyCODONE IR 15 MG TAB PO PRN (14:47)
--- NOTE | 2017-02-17 20:18 | WOCRNPDOC ---
WOCRN Advanced Assessment Note - Skin Integrity Problem, Advanced Assess Left Ear Pressure Injury Dressing Type: Open to Air Wound Bed Constitution: Red/[place] - Non Granular Tissue, Loose Slough Site Measurement - Head-to-Toe Length X Width X Depth (cm): 0.3x0.3x0.2 Pressure Injury Stage: Stage 3, Labeler Related Pressure Injury (oxygen tubing) Pressure Injury Present on Admit: No Skin Integrity Problem Comment: Thin layer of slough removed revealing a red wound base. This wound is full thickness. Oxygen tubing cushions are in place.
[2017-02-17] MEDS: PROMETHAZINE HCL 25 MG/ML INJ IVP PRN (21:45)
[2017-02-18] MEDS: HYDROmorphONE/DILAUDID 1 MG/ML INJ IVP PRN (05:55)
--- NOTE | 2017-02-18 08:05 | SOAPPROG ---
SOAP Progress Note Assessment/Plan: Assessment: 56yo F s/p large ventral hernia repair with mesh. RSD and chronic pain. Acute on chronic pain. On po pain meds and patch Regular diet Had emesis again last night - having gas and bowel movements. Also described emesis pre-op. Will get CT scan. Abdominal wall hematoma resolving Continue inpatient. PT and OT. S: Had emesis again last evening. Eating well without discomfort. Having a lot of gas and large BMs. O: Sitting in bed, cheerful Lungs CTAB Regular rate BS present Much softer Incision cdi Dark serosanguinous fluid in KRISTYN drain Plan: 02/11/17 10:05 02/11/17 10:27 02/16/17 10:39 02/18/17 08:05 Objective: Vital Signs Temp Pulse Resp BP Pulse Ox 36.7 C 81 16 113/70 95 02/18/17 04:00 02/18/17 04:00 02/18/17 04:00 02/18/17 04:00 02/18/17 04:00 Laboratory Results 02/17/17 05:00 02/17/17 05:00 02/17/17 02/18/17 02/19/17 05:59 05:59 05:59 Intake Total 1355 472 Output Total 110 109 Balance 1245 363 ICD10 Worksheet Patient Problems: Problems Problem Status Onset Ventral hernia Acute
[2017-02-18] MEDS: ENOXAPARIN 40 MG/0.4 ML SYR SC SCH ×2 (09:18→21:10)
[2017-02-18] MEDS: oxyCODONE IR 15 MG TAB PO PRN ×3 (09:18→21:11)
[2017-02-18] MEDS: SENNOSIDES/DOCUSATE SODIUM TAB PO SCH ×2 (09:19→21:10)
[2017-02-18] MEDS: PANTOPRAZOLE SODIUM 40 MG TAB PO SCH (09:19)
[2017-02-18] MEDS: ONDANSETRON 4 MG/2 ML VIAL IVP PRN (15:08)
[2017-02-18] MEDS: fentaNYL 50 MCG PATCH TD SCH (17:37)
[2017-02-18] MEDS: LORazepam 2 MG/ML INJ IVP PRN (21:11)
[2017-02-18] MEDS: PROMETHAZINE HCL 25 MG/ML INJ IVP PRN (23:45)
[2017-02-19] MEDS: oxyCODONE IR 15 MG TAB PO PRN ×3 (03:11→15:12)
[2017-02-19 08:28] VITALS: BP 107/68
[2017-02-19] MEDS: ENOXAPARIN 40 MG/0.4 ML SYR SC SCH (09:15)
[2017-02-19] MEDS: SENNOSIDES/DOCUSATE SODIUM TAB PO SCH (09:17)
[2017-02-19] MEDS: PANTOPRAZOLE SODIUM 40 MG TAB PO SCH (09:18)
--- NOTE | 2017-02-19 10:29 | PDHOMEO2F ---
Home Oxygen Face to Face Home Orders: I certify that a physician or a nurse practitioner or physician's title i assistant has had a [id number]-qd-[id number] encounter with this patient on the date of this order due to the diagnosis listed, which relates to the primary reason the patient requires home oxygen. Alternative treatments have been tried, or considered, and deemed ineffective. It is anticipated that supplemental oxygen will result in improvement with treatment. Home oxygen qualifying diagnosis: hypoxia SpO2 on room air (%): 87 Frequency of home oxygen needed: continuous Home oxygen liters per minute: 2 Home oxygen delivery device: nasal cannula Concentrator: Yes E-tanks for mobility and back up: Yes If ordering portable O2, is the patient mobile in the home?: Yes I certify that, based on these findings, the home oxygen is medically necessary for this patient for the following length of time. Length of time home oxygen needed: 99 years
--- NOTE | 2017-02-19 10:35 | PDIAF ---
- Diagnosis Diagnosis: ventral hernia Code Status: Full Code - Medication Management Discharge Medications: Medications to Continue on Transfer Aspirin [Aspirin 81mg (*)] 81 mg PO DAILY 02/04/17 [Last Taken 2 Months Ago ~03/24] Dicyclomine [Bentyl 10 MG (*)] 10 mg PO TID PRN 02/04/17 [Last Taken Unknown] Ibuprofen [Motrin (*)] 800 mg PO TID PRN 02/04/17 [Last Taken 01/22/17] Acetaminophen [Tylenol 325mg (*)] 650 mg PO Q6 PRN tab 02/19/17 [Last Taken Unknown] Pantoprazole Sodium [Protonix 40mg (*)] 40 mg PO DAILY #30 tab 02/19/17 [Last Taken Unknown] fentaNYL [Duragesic 50 MCG Patch (*)] 50 mcg TD Q72H #5 patch 02/19/17 [Last Taken Unknown] oxyCODONE IR [Oxycodone Ir (*)] 15 mg PO Q6 PRN tab 02/19/17 [Last Taken Unknown] Discharge Medications: Refer to the Discharge Home Medication list for PRN reason. - Orders Services needed: Home Care, Registered Nurse Home Care Face to Face: I certify that this patient was under my care and that I had the required siin-ca-nwle encounter meeting the encounter requirements on the discharge day. My findings support the fact that the patient is homebound as defined in Home Care Face to Face Continued: CMS Chapter 7 Medicare Benefits Manual 30.1.1 , The condition of the patient is such that there exists a normal inability to leave home and consequently, leaving home would require a considerable and taxing effort. Oxygen: 2L continuous Diet Recommendation: no restrictions on diet Diet Texture: Regular Texture Diet Wound Care Instructions: KRISTYN drain empty and record Activity/Weight Bearing Restrictions: avoid heavy lifting pushing or pulling x 6 weeks after surgery - Follow Up Care Current Providers and Referrals: Dilcia Sparks MD [Primary Care Provider] - Dilcia Copeland MD [Medical Doctor] -
[2017-02-19 11:13] VITALS: PULSE 85; RESP 18; TEMP 98.5; O2SAT 96
--- NOTE | 2017-02-19 13:21 | ASMTCMCOM ---
CM Note CM Note Notes: Spoke w/surgical PA, pt needs home health RN. Spoke w/pt and CM set up HC who will go to [place]. will come pick pt up, Miriam at [facility] notified. DC Plan: [facility] home RN Date Signed: 02/19/2017 01:21 PM Electronically Signed By:Olamide Ohara RN
[2017-02-19] MEDS: ACETAMINOPHEN 325 MG TAB PO PRN (14:24)
--- NOTE | 2017-02-19 16:33 | SOAPPROG ---
SOAP Progress Note Assessment/Plan: Assessment: 56yo F s/p large ventral hernia repair with mesh. RSD and chronic pain. Acute on chronic pain. Regular diet +BM and flatus Abdominal wall hematoma -stable. Remove sunny Dispo: DC home today with home care and supplemental O2. F/u 1 week. Needs to f/ u with PCP re O2 and pain medication refills S: feeling well, no new complaints today. no vomiting x 24h O: laying in bed, comfortable, pleasant and conversant No increased WOB Abd +BS, softly distended, nontender, midline incision CDI. Drain thin dark sanguinous. Ecchymosis stable Objective: Vital Signs Temp Pulse Resp BP Pulse Ox 36.9 C 85 18 107/68 96 02/19/17 11:12 02/19/17 11:12 02/19/17 11:12 02/19/17 11:12 02/19/17 11:12 Laboratory Results 02/17/17 05:00 02/17/17 05:00 02/18/17 02/19/17 02/20/17 05:59 05:59 05:59 Intake Total 472 Output Total 109 130 25 Balance 363 -130 -25 ICD10 Worksheet Patient Problems: Problems Problem Status Onset Ventral hernia Acute
--- NOTE | 2017-02-19 18:11 | ASDISCHSUM ---
Discharge Information Plan Status:Home with Home Health Medically Cleared to Leave: Discharge Date:02/19/2017 04:36 PM CM D/C Disposition:Home Health Service ADT D/C Disposition:Home, Routine, Self-Care Projected Discharge Date:02/19/2017 02:00 PM Transportation at D/C:Family Discharge Delay Reason: Follow-Up Date:02/19/2017 02:00 PM Discharge Slot: Final Diagnosis:Ventral Hernia Placement Information Referral Type:*Home Health Care Services Referral ID:[id number] Provider Name:[facility] Address 1:[address] [place] [address] Address 2: City:[place] Selection Factors: State:[place] Patient Contact Information Contact Name:NICHOLE Relationship: Address:[address] Work Phone: City:[place] Alternate Phone: [facility]/Zip Code:[place] [address] Email: Financial Information Financial Class: Primary Plan Desc:[employer] Primary Plan Number:[id number] Secondary Plan Desc: Secondary Plan Number: Assessment Information [facility] CM Progress Note CM Note CM Note Notes: 56 year old female admitted for ventral hernia. Has a hx of chronic neck and back pain, RSD HTN, Obesity, Anxiety, Depression. Therapies recommending home with 24hr supervision. Date Signed: 02/07/2017 05:06 PM Electronically Signed By:Kasey Vitale LCSW BC CM Progress Note CM Note CM Note Notes: PT recommends home with 24 hour supervision and OT recommends home. Patient lives in [place] with her . Patient will most likely d/c independently. CM is available if d/c needs change. Date Signed: 02/10/2017 11:35 AM Electronically Signed By:Windy Beltran LCSW [facility] CM Progress Note CM Note CM Note Notes: Plan remains the same, pt will dc home w/support of when medically stable. CM available for any changes. Date Signed: 02/13/2017 11:06 AM Electronically Signed By:Olamide Ohara RN [facility] CM Progress Note CM Note CM Note Notes: Reviewed chart regarding discharge plan, pt's progress. PT/OT cleared pt, no needs identified. Spoke w/ Osmar from OT, pt cont to have difficulty wiping w/ bowel movements, unable to twist torso. Osmar suggested possibility of home care; discussed the fact home care would be unable to time visits according to pt's bowel needs. OT to cont to work w/ pt on ADLs. Attempted to meet w/ pt to discuss possibility of home care; pt sleeping. CM will cont to follow for any potential needs. Current discharge plan: Home independently Date Signed: 02/14/2017 04:43 PM Electronically Signed By:Gabrielle Barnett RN [facility] CM Progress Note CM Note CM Note Notes: CM met w/ pt for dispo planning. Pt reports that OT has ordered her a "butt wiper". Pt does not anticipate having any needs. CM available for changes. Plan: Independent Date Signed: 02/15/2017 10:50 AM Electronically Signed By:SHARATH Long [facility] Progress Note CM Note CM Note Notes: Plan remains the same, pt will dc home w/support of when medically stable. CM available for any changes. Date Signed: 02/17/2017 10:57 AM Electronically Signed By:Olamide Ohara RN [facility] CM Progress Note CM Note CM Note Notes: Spoke w/surgical PA, pt needs home health RN. Spoke w/pt and CM set up HC who will go to [place]. will come pick pt up, Miriam at [facility] notified. DC Plan: [facility] home RN Date Signed: 02/19/2017 01:21 PM Electronically Signed By:Olamide Ohara RN Intervention Information Intervention Type:*Incorrect Registration Date of Service:02/05/2017 04:12 PM Patient Type:Inpatient Staff Member:JEFFY Jones Sugar Hours: Discipline: Severity: Comment:
== END 2017-02-19 16:36 | disposition home health service (06) | DRG 354 ==
LOC: F3E 07:50 → EDSTATUS 09:30 → OBSVTOIN 12:43 → F2N 14:35 → F3E 02-10 17:43
PROVIDERS: ADMIT Surgery; ATTEND Surgery
PROC: 0WUF0JZ Supplement Abdominal Wall with Synthetic Substitute, Open Approach (ICD-10-PCS; principal; 2017-02-05 09:30)
PROC: 02HV33Z Insertion of Infusion Device into Superior Vena Cava, Percutaneous Approach (ICD-10-PCS; 2017-02-06)
PROC: 0D9670Z Drainage of Stomach with Drainage Device, Via Natural or Artificial Opening (ICD-10-PCS; 2017-02-08)
DX: K43.6 Other and unspecified ventral hernia with obstruction, without gangrene (principal); G90.50 Complex regional pain syndrome I, unspecified; L89.813 Pressure ulcer of head, stage 3; L76.32 Postprocedural hematoma of skin and subcutaneous tissue following other procedure; F41.9 Anxiety disorder, unspecified; F32.9 Major depressive disorder, single episode, unspecified; I10 Essential (primary) hypertension; E66.9 Obesity, unspecified; K21.9 Gastro-esophageal reflux disease without esophagitis; Z90.49 Acquired absence of other specified parts of digestive tract
CPT/HCPCS: 97110-GP; 97116-GP; 97161-GP; 97165-GO; 97530-GO; 97530-GP; 97535-GO; C1751; C1781; J0690; J1100; J1170; J1200; J1650; J2060; J2250; J2370; J2405; J2550; J2704; J2765; J2997; J3010

== ENCOUNTER 2017-03-04 22:14 | Inpatient (IN) | payer MEDICAID ==
--- NOTE | 2017-03-04 22:24 | EDPHY ---
H & P Stated Complaint: N/V/GUSMAN, post-op HPI/ROS: HPI CHIEF COMPLAINT: N/V abdominal pain HISTORY OF PRESENT ILLNESS: This patient very pleasant 57-year-old female she recently had a ventral hernia repair complicated by incarcerated Bowel well as multiple abdominal wall hematomas, presents emergency room nausea vomiting and loose stools. Patient reports no fever. She states she has been vomiting all day today. Could not get the vomiting this stop so she decided come to the emergency room. She does complain of diffuse abdominal pain however worse when she vomits. She still has a KRISTYN drain in from her recent surgery. This is due to come out tomorrow. She is midline ventral incision that is clean and intact. She does have some hematoma all all palpable on exam around the incision site. Past Medical History: RSD, chronic back pain, chronic neck pain, hypertension, recent abdominal wall hematoma Past Surgical History: Breast augmentation, lumpectomy, cholecystectomy, stomach stapling (VBG) Social History: Denies drugs alcohol tobacco products Family History: Noncontributory. ROS REVIEW OF SYSTEMS: A comprehensive 10 point review of systems is otherwise negative aside from elements mentioned in the history of present illness. Exam Constitutional appears nontoxic triage nursing summary reviewed, vital signs reviewed, awake/alert. Eyes normal conjunctivae and sclera, EOMI, PERRLA. HENT normal inspection, atraumatic, moist mucus membranes, no epistaxis, neck supple/ no meningismus, no raccoon eyes. Respiratory clear to auscultation bilaterally, normal breath sounds, no respiratory distress, no wheezing. Cardiovascular rate normal, regular rhythm, no murmur, no edema, distal pulses normal. Gastrointestinal rather large abdomen, tender palpation down the ventral incision scar site, hematoma present, KRISTYN drain on the left abdomen intact, no signs of infection, no sign cellulitis, she is tender diffusely but not peritoneal. Genitourinary no CVA tenderness. Musculoskeletal no midline vertebral tenderness, full range of motion, no calf swelling, no tenderness of extremities, no meningismus, good pulses, neurovascularly intact. Skin pink, warm, & dry, no rash, skin atraumatic. Neurologic awake, alert and oriented x 3, AAOx3, moves all 4 extremities equally, motor intact, sensory intact, CN II-XII intact, normal cerebellar, normal vision, normal speech. Psychiatric normal mood/affect. Heme/Lymph/Immune no lymphadenopathy. Differential diagnosis includes but is not limited to and in no particular order : Bowel obstruction, appendicitis, gallbladder disease, diverticulitis, colitis , enteritis, perforated viscus, gastritis, GERD, esophagitis, urinary tract infection, pyelonephritis, kidney stones Medical Decision Making: Plan for this patient IV establishment with IV fluid bolus, 1 mg Dilaudid for pain control, 4 mg Zofran for nausea, CT scan abdomen pelvis without contrast as patient has contrast allergy, check blood work, re- evaluate. Re-evaluation: EKG interpretation by me on record in [facility] system. Impression time of EKG 204, sinus rhythm rate of 88. No acute ischemic changes appreciated. CT scan abdomen pelvis without contrast called to me by Dr. Sargent, this shows abduction in the above wall hematoma with a drain is present, however it does show that the gastric pouch 1206: Spoke with Dr. Lim will review CT scan. Additionally reds admission to the hospitalist service. 1207: Will consult the hospitalist for admission. 1217AM: Dr. Lim has review the patient's CT scan. Recommends that if she is not actively vomiting at this time not place an NG. Will admit the patient to the hospitalist service for a nausea vomiting and abdominal pain. 1223: Spoke with Dr. Mixon agrees to admit this patient. Patient be admitted for nausea vomiting and abdominal pain. Dr. Copeland to see in the Am. She is not actively vomiting at this time. She is hemodynamically stable. Will hold off on NG tube at this time. Source: Patient - Personal History Current Tetanus Diphtheria and Acellular Pertussis (TDAP): Yes Tetanus Vaccine Date: 2014 - Medical/Surgical History Hx Asthma: No Hx Chronic Respiratory Disease: No Hx Diabetes: No Hx Cardiac Disease: No Hx Renal Disease: No Hx Cirrhosis: No Hx Alcoholism: No Hx HIV/AIDS: No Hx Splenectomy or Spleen Trauma: No Other PMH: RSD, in state since September, Hx Pain pump, Choleyctectomy-2014, tonsillectomy, fatty tumor R breast, Bilateral breast augmentation, gastroplasty 1997, CAP 2015. - Social History Smoking Status: Never smoked Constitutional: Initial Vital Signs Temperature (C) 37.1 C 03/04/17 22:20 Heart Rate 100 03/04/17 22:20 Respiratory Rate 20 03/04/17 22:20 Blood Pressure 142/99 H 03/04/17 22:20 O2 Sat (%) 95 03/04/17 22:20 O2 Delivery Mode Nasal Cannula O2 (L/minute) 2 Allergies/Adverse Reactions: Iodinated Contrast- Oral and IV Dye Allergy (Severe, Verified 03/05/17 02:17) Other-Enter Comments ketorolac tromethamine [From Toradol] Allergy (Severe, Verified 03/05/17 10:20) Hives sumatriptan succinate [From Imitrex] Allergy (Severe, Verified 03/04/17 22:15) Unknown codeine Allergy (Intermediate, Verified 03/04/17 22:15) Rash sumatriptan Allergy (Unknown, Verified 03/05/17 02:34) Unknown diphenhydramine [From Benadryl] Allergy (Verified 03/05/17 02:17) contrast dye Allergy (Severe, Uncoded 03/04/17 22:15) Anaphylaxis ketorolac tromethamine Allergy (Unknown, Uncoded 03/04/17 22:15) Hives sumatriptan succinate Allergy (Unknown, Uncoded 03/04/17 22:15) Unknown Home Medications: Medication Instructions Recorded Aspirin [Aspirin 81mg (*)] 81 mg PO DAILY 02/04/17 Dicyclomine [Bentyl 10 MG (*)] 10 mg PO TID PRN 02/04/17 Ibuprofen [Motrin (*)] 800 mg PO TID PRN 02/04/17 Acetaminophen [Tylenol 325mg (*)] 650 mg PO Q6 PRN tab 02/19/17 Pantoprazole Sodium [Protonix 40mg 40 mg PO DAILY #30 tab 02/19/17 (*)] fentaNYL [Duragesic 50 MCG Patch 50 mcg TD Q72H #5 patch 02/19/17 (*)] oxyCODONE IR [Oxycodone Ir (*)] 15 mg PO Q6 PRN tab 02/19/17 Gabapentin [Neurontin 300 MG (*)] 300 mg PO TID 03/06/17 LORazepam [Ativan (*)] 0.5 mg PO Q8HRS PRN #15 tab 03/07/17 Medical Decision Making - Data Points Laboratory Results: Laboratory Results 03/05/17 07:40 03/05/17 07:40 Medications Given: Discontinued Medications Acetaminophen (Tylenol) 650 mg PO Q4HRS PRN PRN Reason: Pain, Mild/Fever, Can Take PO Stop: 09/01/17 01:34 Last Admin: 03/06/17 15:11 Dose: 650 mg Aspirin (Aspirin) 81 mg PO DAILY [facility] Stop: 09/03/17 08:59 Last Admin: 03/07/17 07:59 Dose: 81 mg Calcium Carbonate (Tums) 500 mg PO TID PRN PRN Reason: Indigestion Stop: 09/02/17 23:43 Last Admin: 03/07/17 00:03 Dose: 500 mg Diclofenac Sodium (Diclofenac Sodium 1% Gel) 2 gm TP QID [facility] Stop: 09/01/17 11:59 Last Admin: 03/07/17 12:28 Dose: 2 gm Fentanyl (Duragesic) 50 mcg TD Q72H [facility] Stop: 03/15/17 07:59 Last Admin: 03/05/17 08:41 Dose: 50 mcg Gabapentin (Neurontin) 300 mg PO TID [facility] Stop: 09/02/17 15:59 Last Admin: 03/07/17 15:32 Dose: 300 mg Hydromorphone HCl (Dilaudid) 1 mg IVP EDNOW ONE Stop: 03/04/17 22:28 Last Admin: 03/04/17 23:26 Dose: 1 mg Hydromorphone HCl (Dilaudid) 0.5 - 1 mg IVP Q3HRS PRN PRN Reason: Pain, Severe Unable to Take PO Stop: 03/15/17 01:37 Last Admin: 03/06/17 06:06 Dose: 1 mg Sodium Chloride (Ns) 1,000 mls @ 0 mls/hr IV EDNOW ONE; Wide Open PRN Reason: Protocol Stop: 03/04/17 22:28 Last Admin: 03/04/17 23:26 Dose: 1,000 mls Sodium Chloride (Ns) 1,000 mls @ 0 mls/hr IV ONCE ONE PRN Reason: Wide Open Stop: 03/04/17 22:47 Last Admin: 03/05/17 00:00 Dose: 1,000 mls Lorazepam (Ativan Injection) 0.5 - 1 mg IVP Q8HRS PRN PRN Reason: Anxiety, Unable to Take PO Stop: 09/01/17 01:34 Last Admin: 03/06/17 08:24 Dose: 1 mg Lorazepam (Ativan) 0.5 mg PO Q8HRS PRN PRN Reason: Anxiety, Able to Take PO Stop: 09/02/17 23:43 Last Admin: 03/07/17 00:03 Dose: 0.5 mg Ondansetron HCl (Zofran) 4 mg IVP EDNOW ONE Stop: 03/04/17 22:28 Last Admin: 03/04/17 23:26 Dose: 4 mg Ondansetron HCl (Zofran) 4 mg IVP Q4HRS PRN PRN Reason: Nausea/Vomiting, Can't Take PO Stop: 09/01/17 01:34 Last Admin: 03/06/17 22:15 Dose: 4 mg Ondansetron HCl (Zofran Odt) 4 mg PO Q4HRS PRN PRN Reason: Nausea/Vomiting, Use 1st Stop: 09/01/17 01:34 Last Admin: 03/06/17 15:47 Dose: 4 mg Oxycodone HCl (Oxycodone Ir) 15 mg PO Q6 PRN PRN Reason: Pain, Severe Able to Take PO Stop: 03/16/17 10:14 Last Admin: 03/07/17 15:32 Dose: 15 mg Pantoprazole Sodium (Protonix) 40 mg IVP BID FRANCESCO Stop: 09/01/17 10:59 Last Admin: 03/06/17 08:25 Dose: 40 mg Pantoprazole Sodium (Protonix) 40 mg PO DAILY [facility] Stop: 09/03/17 08:59 Last Admin: 03/07/17 07:49 Dose: 40 mg Promethazine HCl (Phenergan) 6.25 mg IVP ONCE ONE Stop: 03/05/17 00:49 Last Admin: 03/05/17 00:51 Dose: 6.25 mg Promethazine HCl (Phenergan) 6.25 - 12.5 mg IVP Q6HRS PRN PRN Reason: Nausea/Vomiting, Can't Take PO Stop: 09/01/17 02:18 Last Admin: 03/07/17 12:28 Dose: 12.5 mg Departure - Departure Disposition: [facility] Inpatient Acute Clinical Impression: Abdominal pain Qualifiers: Abdominal location: epigastric Qualified Code(s): R10.13 - Epigastric pain Vomiting Qualifiers: Vomiting type: unspecified Vomiting Intractability: intractable Nausea presence : with nausea Qualified Code(s): R11.2 - Nausea with vomiting, unspecified Condition: Fair
[2017-03-04] MEDS ORDERED: NS 1,000 ML IV ONE ×2 (22:27→22:46)
[2017-03-04] MEDS ORDERED: HYDROmorphONE/DILAUDID 1 MG/ML INJ IVP ONE (22:27)
[2017-03-04] MEDS ORDERED: ONDANSETRON 4 MG/2 ML VIAL IVP ONE (22:27)
--- NOTE | 2017-03-04 23:06 | CPEKG ---
Heart Rate: 88 RR Interval: 682 P-R Interval: 184 QRSD Interval: 80 QT Interval: 352 QTC Interval: 426 P Strang: 33 QRS Strang: 25 T Wave Strang: 27 EKG Severity - NORMAL ECG - EKG Impression: SINUS RHYTHM Electronically Signed By: Michael Nath 05-Mar-2017 07:49:05
[2017-03-04 23:36] LABS: PLATELET COUNT 257 10^3/uL (150-400)
[2017-03-04 23:49] LABS: INR 0.98 (0.83-1.16); PROTIME(PATIENT) 13.2 SEC (12.0-15.0)
[2017-03-05] MEDS ORDERED: PROMETHAZINE HCL 25 MG/ML INJ ONE (00:48)
[2017-03-05] MEDS ORDERED: PROMETHAZINE HCL 25 MG/ML INJ IVP ONE (00:48)
[2017-03-05] MEDS ORDERED: ONDANSETRON DISINTEGRATING 4 MG TAB PO PRN (01:35)
[2017-03-05] MEDS ORDERED: ACETAMINOPHEN 325 MG TAB PO PRN (01:35)
[2017-03-05] MEDS: LORazepam 2 MG/ML INJ IVP PRN ×2 (02:27→22:22)
--- NOTE | 2017-03-05 03:46 | GHP ---
[f rep st] HISTORY AND PHYSICAL DATE OF ADMISSION: 03/05/2017 SOURCE: Patient provides history, appears reliable. Her EMR from current and recent hospital stays were reviewed, and case discussed with ED provider. CHIEF COMPLAINT: Intractable nausea, vomiting, abdominal pain. HISTORY OF PRESENT ILLNESS: This is a very pleasant 57-year-old female with past medical history sig nificant for chronic pain, GERD, morbid obesity, who presents to the emergency department today with a 1-day history of intractable nausea, vomiting, and diffuse abdominal pain. Patient denies any rece nt fevers, chills. No known sick contacts. She was recently hospitalized from 02/05/2017 to 017 following a ventral hernia repair with complications related to bowel incarceration and abdominal wall hematoma. Patient reports that she had been doing fairly well since her discharge home on the until today. Patient states she also had some loose stools, but denies any melena, hematochezia , or watery diarrhea. Again, no sick contacts, fevers, or chills. Patient is also complaining of le ft mid lower back pain, that is intermittent, cramping, and spasm-type pain. REVIEW OF SYSTEMS: GENERAL: No fevers, chills. SKIN: No rashes, sores. EYES: Patient wears glas ses. No acute changes in vision. ENT: Patient reports a little bit of nasal congestion. No sore t hroat. CV: Patient is complaining of some left-sided chest heaviness with occasional sharp pain and some palpitations. RESPIRATORY: Patient does note some shortness of breath with increasing abdomin al pain. She denies any cough. GI: See HPI. : No dysuria or hematuria. MUSCULOSKELETAL: Andressa ent complaining of left back spasm as noted above. She denies any other joint pains or myalgias. NE UROLOGIC: Patient reports a mild headache, slowly improving. No numbness, tingling. No focal defic its. PSYCH: Patient denies any anxiety or depression. Remainder review of systems negative except as noted above. ALLERGIES: Iodine, Toradol, sumatriptan, codeine, and patient after discussion reports that Benadryl , she has a paradoxical reaction with increased agitation and restlessness. PAST MEDICAL HISTORY: Significant for chronic pain on chronic opiate therapy in her neck and her nicolas k, GERD, morbid obesity, RSD. PAST SURGICAL HISTORY: Significant for breast augmentation, lumpectomy, cholecystectomy, stomach sta pling, and as above more recently a ventral hernia repair with complications of incarcerated hernia a nd abdominal hematomas. FAMILY HISTORY: Brother with history of hemochromatosis. No diabetes or CAD. SOCIAL HISTORY: Patient lives with her . She does not smoke, drink, or do drugs. CODE STATUS: Full. She desires to act as proxy if needed. Patient without advance directiv es in place. PHYSICAL EXAMINATION: VITAL SIGNS: Upon arrival to the emergency department, blood pressure 142/99, heart rate 100, respiratory rate 20, O2 saturation 95% on room air with a temperature of 37.1. Bloo d pressure currently 153/95, heart rate is 88, respiratory rate 18, O2 saturation is 100% on 2 L by n daphne cannula with a temperature 37.2. GENERAL: No acute distress initially. Patient does develop s ome increasing abdominal pain and back spasms and becomes slightly more mildly distressed, but still pleasant and cooperative. HEAD: Normocephalic, atraumatic. EYES: Extraocular muscles are intact. Pupils equal, round, with decreased reactivity to light bilaterally, but symmetric. No scleral icte paco or conjunctival injection. ENT: Mucous membranes appear moist. No oropharyngeal erythema. Den tition intact. NECK: Supple. Trachea midline. CV: Regular rate and rhythm. No murmurs, rubs, or gallops appreciated. Slightly distant heart sounds related to body habitus. RESPIRATORY: Lungs ar e clear to auscultation bilaterally. No wheezes, rales, or rhonchi. ABDOMEN: Obese. Soft. Patien t with some tenderness to palpation along the incision line, which is in the process of healing, appr oximated with sunny removed. She does have a KRISTYN drain in place. Bowel sounds are hypoactive. Pat ient with tenderness to palpation along the incision line and again there are some palpable areas of former hematoma that are also tender to palpation. : No suprapubic tenderness to palpation. No F oley in place. EXTREMITIES: Patient without any pitting edema bilateral lower extremities. She is able to move all extremities and sit up independently with some effort. NEURO: Cranial nerves gross ly nonfocal. No facial drooping. Moves all extremities. Awake, alert, and oriented x4. PSYCH: Garrett ward does appear a little bit anxious, increased with complaints of pain. Thought process, content, and questions are otherwise appropriate. LABORATORY DATA: WBC 6.61, H and H 13.1 and 39.0, MCV 94.9, platelet count is 257, no bands. PT is 13.2, INR 0.98, PTT is 25.7. Lactic acid 1.1. Sodium 141, potassium 4.2, chloride 104, CO2 is 26, a nion gap of 11, BUN 4, creatinine 0.6, GFR greater than 60, glucose 108, calcium 9.8, total bilirubin 0.8, ALT 32, AST is 22, alkaline phosphatase 71. Troponin is negative. Total protein 6.5, albumin is 4.0, lipase 84. UA: Specific gravity of 1.012 with a pH of 9.0, otherwise, negative. Blood cult ures x2 pending. IMAGING DATA: 1. CT abdomen and pelvis: Image was reviewed by me, along with ED provider, report reviewed showing distention of the gastric pouch, middle of the gastric stapling procedure with air-fluid level. No small bowel obstruction or colonic obstruction. Anterior abdominal wall hematoma with drain appears slightly improved since recent CT scan from 02/18/2017. No pneumoperitoneum or pelvic fluid collecti on. 2. Abdominal x-ray: Nonspecific bowel gas pattern. Image report reviewed by me. 3. Chest x-ray: Image reviewed by me. Also reviewed minimal residual linear atelectasis or scarrin g bilateral lower lobes. No definite pneumonia. 4. EKG: Reviewed by me, showing normal sinus rhythm in the 80s. No acute ST changes. Some T-wave inversion in lead III only. No acute ST elevations. QTc is 426. ASSESSMENT AND PLAN: Pleasant 57-year-old female with history of gastric stapling and more recently a ventral hernia repair with complication, who now presents with complaints of intractable nausea, vo miting, abdominal pain. 1. Intractable nausea, vomiting, improved status post Phenergan. The patient continues to complain of significant amount of nausea without any further vomiting. Discussed options to trial of alternat e antiemetics as patient reports only Phenergan is effective, but amenable to trial for some Ativan. Reviewed with the patient the possibility for some Benadryl, but she reports she has a paradoxical r eaction to this, so will have this added to her allergy list. If patient's symptoms remain uncontrol led or she develops active vomiting, will need to consider use of NG tube, which was previously discu ssed with Surgery and the ER provider as the next step in treatment with low risk for considerations for perforation given that patient's stapling was completed in 1997. 2. Dilated stomach pouch. Plan as above. [facility] Patient's primary surgeon is Dr. Copeland, and she will be consulted in the morning through surgica l service. 3. Dehydration. Status post IV fluid in the emergency department. Continue with gentle IV fluid hy dration and patient will be n.p.o. 4. Back pain and spasm. Patient with a notable and palpable along the mid latissimus dorsi on the l eft side. Supportive care. K-pad will be ordered. Consider topical menthol rub, as well. Palpatio n did appear to improve symptoms. 5. Obesity with body mass index of greater than 35. Mobilize as possible. 6. Gastroesophageal reflux disease. Continue PPI. 7. History of chronic pain. Patient with Dilaudid p.r.n. Resume her home medications when diet is advanced. 8. Fluids, electrolytes, and nutrition. IV fluids overnight. Patient will be n.p.o. Electrolytes will be monitored and replaced if needed. 9. Prophylaxis. SCDs. Holding anticoagulation pending surgical evaluation. COR STATUS: Full. Patient desires her to act as proxy if needed. DISPOSITION: Patient has been admitted to observation on the medical floor at this time pending furt her surgical recommendations. No evidence of small bowel obstruction on imaging at this time. /[id number]/MODL
[2017-03-05 07:47] LABS: PLATELET COUNT 201 10^3/uL (150-400)
[2017-03-05 07:55] LABS: INR 1.04 (0.83-1.16); PROTIME(PATIENT) 13.8 SEC (12.0-15.0)
[2017-03-05] MEDS ORDERED: fentaNYL 50 MCG PATCH TD SCH (08:00)
[2017-03-05] MEDS: ONDANSETRON 4 MG/2 ML VIAL IVP PRN ×2 (08:43→18:12)
[2017-03-05] MEDS: HYDROmorphONE/DILAUDID 1 MG/ML INJ IVP PRN ×3 (08:43→18:11)
--- NOTE | 2017-03-05 08:51 | HOSPPROG ---
Hospitalist Progress Note Assessment/Plan: Patient is a 57-year-old female who presented to the emergency room with intractable nausea, vomiting and abdominal pain. Today is my 1st encounter with the patient. Chart reviewed. * nausea and vomiting -question if this is related to a dilated stomach pouch, general surgery to see her. -history of gastric stapling and recently a ventral hernia repair -trial of clear liquids * dilated stomach pouch * dehydration -iv fluids -trial of clears * back pain -trial of Voltaren * obesity with a BMI of 35 * GERD: PPI BID ordered iv * chronic pain -resumed Fentanyl *Plan : reviewed her care with Dr Copeland. Recommendation watching her overnight to be sure she can tolerate oral intake. She will require another midnight stay for further evaluation. Subjective: Jeri is c/o buring left lower quadrant pain and bilateral flank pain. Objective: Vital Signs Temp Pulse Resp BP Pulse Ox 36.7 C 80 18 117/74 94 03/05/17 08:00 03/05/17 08:00 03/05/17 08:00 03/05/17 08:00 03/05/17 08:00 Laboratory Results 03/05/17 07:40 03/05/17 07:40 03/04/17 03/05/17 03/06/17 05:59 05:59 05:59 Intake Total 2100 Output Total 35 Balance 2065 PT 13.8 SEC (12.0-15.0) 03/05/17 07:40 INR 1.04 (0.83-1.16) 03/05/17 07:40 - Physical Exam Constitutional: obese, uncomfortable Eyes: PERRL Ears, Nose, Mouth, Throat: hearing normal Cardiovascular: regular rate and rhythym Respiratory: no respiratory distress Gastrointestinal: normoactive bowel sounds Skin: warm Neurologic: AAOx3 Psychiatric: interacting appropriately ICD10 Worksheet Patient Problems: Problems Problem Status Onset Abdominal pain Acute Vomiting Acute Ventral hernia Acute
--- NOTE | 2017-03-05 10:02 | ASMTCASEMG ---
Living Arrangements What is your living Answers: With Spouse arrangement? Who do you live with? Type Of Residence What kind of residence do Answers: House you live in? Discharge Plan Comments Coordination Status Comments Notes: Patient is a 57yo female with a hx of gastric stapling who was admitted for intractable nausea, vomiting, abdominal pain and dehydration. Patient recently had a ventral hernia repair with complications. Patient is and lives in [place]. No therapies have been ordered. Patient may need surgery. D/C needs TBD. CM will follow. Date Signed: 03/05/2017 10:02 AM Electronically Signed By:Windy Beltran LCSW
[2017-03-05] MEDS: PANTOPRAZOLE SODIUM 40 MG VIAL IVP SCH ×2 (11:50→20:52)
[2017-03-05] MEDS: DICLOFENAC SODIUM 1% 100 GM GEL TP SCH ×3 (11:50→20:49)
--- NOTE | 2017-03-05 14:12 | SOAPPROG ---
SOAP Progress Note Assessment/Plan: Assessment: s/p large ventral hernia repair with component separation. Has drain Admitted for severe nausea and vomiting Labs wnl CT wnl S: feeling slightly better than last night. No emesis this am O: Hematoma smaller on abdomen. KRISTYN with serosang fluid. Incision cdi La Rizzo PA-c can see in my office next week Plan: 03/05/17 14:11 03/05/17 14:12 Objective: Vital Signs Temp Pulse Resp BP Pulse Ox 36.5 C 74 18 136/77 H 96 03/05/17 12:00 03/05/17 12:00 03/05/17 12:00 03/05/17 12:00 03/05/17 12:00 Laboratory Results 03/05/17 07:40 03/05/17 07:40 03/04/17 03/05/17 03/06/17 05:59 05:59 05:59 Intake Total 2100 Output Total 35 10 Balance 2065 -10 PT 13.8 SEC (12.0-15.0) 03/05/17 07:40 INR 1.04 (0.83-1.16) 03/05/17 07:40 ICD10 Worksheet Patient Problems: Problems Problem Status Onset Abdominal pain Acute Vomiting Acute Ventral hernia Acute
--- NOTE | 2017-03-05 16:46 | PDMN ---
Medical Necessity Medical necessity: Change to IP, as of 03/05/17, per [facility]; los >2 mn for ongoing management/tx of abdominal pain, N/V & dilated stomach pouch & dehydration; admit for further monitoring, Surgery consult, IVFs, IV pain meds/antiemetics/ PPI & trial of clear liquids; hx recent large ventral repair w/component separation & drain, morbid obesity; per progress note & order 03/05/17
[2017-03-06] MEDS: HYDROmorphONE/DILAUDID 1 MG/ML INJ IVP PRN ×2 (02:04→06:06)
[2017-03-06] MEDS: DICLOFENAC SODIUM 1% 100 GM GEL TP SCH ×4 (05:46→21:11)
--- NOTE | 2017-03-06 08:03 | SOAPPROG ---
SOAP Progress Note Assessment/Plan: Assessment: s/p large ventral hernia repair with component separation. Has drain Admitted for severe nausea and vomiting. Likely GI virus. No vomiting overnight Has f/U with La Rizzo PA-c in my office next week S: feeling slightly better than last night. No emesis. Abdomen is sore O: Abdomen is relatively flat. KRISTYN with serosanguinous fluid. Incision cdi. No evidence of recurrent hematoma. Plan: 03/05/17 14:11 03/05/17 14:12 03/06/17 08:02 Objective: Vital Signs Temp Pulse Resp BP Pulse Ox 36.8 C 69 16 111/65 94 03/06/17 07:34 03/06/17 07:34 03/06/17 07:34 03/06/17 07:34 03/06/17 07:34 03/05/17 03/06/17 03/07/17 05:59 05:59 05:59 Intake Total 1050 Output Total 30 Balance 1020 PT 13.8 SEC (12.0-15.0) 03/05/17 07:40 INR 1.04 (0.83-1.16) 03/05/17 07:40 ICD10 Worksheet Patient Problems: Problems Problem Status Onset Abdominal pain Acute Vomiting Acute Ventral hernia Acute
[2017-03-06] MEDS: LORazepam 2 MG/ML INJ IVP PRN (08:24)
[2017-03-06] MEDS: PANTOPRAZOLE SODIUM 40 MG VIAL IVP SCH (08:25)
--- NOTE | 2017-03-06 08:31 | HOSPPROG ---
Hospitalist Progress Note Assessment/Plan: Patient is a 57-year-old female who presented to the emergency room with intractable nausea, vomiting and abdominal pain. * nausea and vomiting -history of gastric stapling and recently a ventral hernia repair -none further -tolerating clear liquids, will advance diet as tolerated * dilated stomach pouch * dehydration -iv fluids -trial of clears * back pain -Voltaren * obesity with a BMI of 35 * GERD: PPI resumed * chronic pain -resumed Fentanyl & prn meds *Plan : if patient is improving, could dc later today. She's concerned because she lives in [place] and is worried her symptoms may return. Will f/u with her today. Subjective: Jeri is no longer having nausea or any vomiting/has ongoing chronic pain but is overall managed. Objective: Vital Signs Temp Pulse Resp BP Pulse Ox 36.8 C 69 16 111/65 94 03/06/17 07:34 03/06/17 07:34 03/06/17 07:34 03/06/17 07:34 03/06/17 07:34 03/05/17 03/06/17 03/07/17 05:59 05:59 05:59 Intake Total 1050 Output Total 30 Balance 1020 PT 13.8 SEC (12.0-15.0) 03/05/17 07:40 INR 1.04 (0.83-1.16) 03/05/17 07:40 - Physical Exam Constitutional: not in pain, obese Eyes: PERRL Ears, Nose, Mouth, Throat: hearing normal Cardiovascular: regular rate and rhythym Respiratory: no respiratory distress Gastrointestinal: soft, non-tender abdomen, No normoactive bowel sounds ( hypoactive) Skin: warm Musculoskeletal: full muscle strength Neurologic: AAOx3 Psychiatric: interacting appropriately ICD10 Worksheet Patient Problems: Problems Problem Status Onset Abdominal pain Acute Vomiting Acute Ventral hernia Acute
[2017-03-06] MEDS ORDERED: IBUPROFEN 800 MG TAB PO PRN (10:15)
[2017-03-06] MEDS ORDERED: DICYCLOMINE 10 MG CAP PO PRN (10:15)
--- NOTE | 2017-03-06 14:56 | ASMTCMCOM ---
CM Note CM Note Notes: Per pt's RN, the plan is pull pt's KRISTYN drain either tomorrow or at follow up next week. Anticipate d/c tomorrow with no CM needs. Pt has had [facility] in past. Date Signed: 03/06/2017 02:56 PM Electronically Signed By:JHONY Costello
[2017-03-06] MEDS: oxyCODONE IR 15 MG TAB PO PRN (15:47)
[2017-03-06] MEDS: GABAPENTIN 300 MG CAP PO SCH ×2 (16:36→21:11)
[2017-03-06] MEDS: PROMETHAZINE HCL 25 MG/ML INJ IVP PRN (19:22)
[2017-03-06] MEDS: ONDANSETRON 4 MG/2 ML VIAL IVP PRN (22:15)
[2017-03-06] MEDS ORDERED: LORazepam 0.5 MG TAB PO PRN (23:44)
[2017-03-06] MEDS ORDERED: CALCIUM CARBONATE 500 MG CHEWABLE TAB PO PRN (23:44)
[2017-03-07] MEDS: oxyCODONE IR 15 MG TAB PO PRN ×3 (00:03→15:32)
[2017-03-07 07:35] VITALS: RESP 16
--- NOTE | 2017-03-07 07:47 | SOAPPROG ---
SOAP Progress Note Assessment/Plan: Assessment: s/p large ventral hernia repair with component separation. I think she needs to be evaluated by a bariatric surgeon to see if her stomach pouch is contributing to her cyclical emesis It is possible that her stomach was irritated from her GI virus. D/C drain I cancelled her follow-up for this week in my office. I will see her in 2 weeks. S: Large amount emesis last evening O: Abdomen is relatively flat. KRISTYN with serosanguinous fluid. Incision cdi. No evidence of recurrent hematoma. Tender in right upper quadrant Plan: 03/05/17 14:11 03/05/17 14:12 03/06/17 08:02 03/07/17 07:46 Objective: Vital Signs Temp Pulse Resp BP Pulse Ox 36.7 C 67 16 103/57 L 94 03/07/17 07:31 03/07/17 07:31 03/07/17 07:31 03/07/17 07:31 03/07/17 07:31 03/06/17 03/07/17 03/08/17 05:59 05:59 05:59 Intake Total 1050 1550 Output Total 30 40 Balance 1020 1510 PT 13.8 SEC (12.0-15.0) 03/05/17 07:40 INR 1.04 (0.83-1.16) 03/05/17 07:40 ICD10 Worksheet Patient Problems: Problems Problem Status Onset Abdominal pain Acute Vomiting Acute Ventral hernia Acute
[2017-03-07] MEDS: DICLOFENAC SODIUM 1% 100 GM GEL TP SCH ×2 (07:48→12:28)
[2017-03-07] MEDS: GABAPENTIN 300 MG CAP PO SCH ×2 (07:48→15:32)
[2017-03-07] MEDS: ASPIRIN 81 MG CHEWABLE TAB PO SCH ×2 (07:49→07:59)
[2017-03-07] MEDS ORDERED: PANTOPRAZOLE SODIUM 40 MG TAB PO SCH (09:00)
--- NOTE | 2017-03-07 09:40 | HOSPPROG ---
Hospitalist Progress Note Assessment/Plan: Patient is a 57-year-old female who presented to the emergency room with intractable nausea, vomiting and abdominal pain. * nausea and vomiting -history of gastric stapling and recently a ventral hernia repair -Dr Copeland is recommending a gastric surgeon for her to see- will give her name of Dr Xander Singh for f/u care -had a bout of emesis last night, eating cl liquids now * dehydration -eating clear liquids, advancing diet as tolerated * back pain -Voltaren * obesity with a BMI of 35 * GERD: PPI resumed * chronic pain -resumed Fentanyl & prn meds *Plan : if she can eat and drink today will aim to dc, suspect she has some anxiety impacting the above Subjective: Jeri is worried if dc she will have a bout of emesis Objective: Vital Signs Temp Pulse Resp BP Pulse Ox 36.7 C 67 16 103/57 L 94 03/07/17 07:31 03/07/17 07:31 03/07/17 07:31 03/07/17 07:31 03/07/17 07:31 03/06/17 03/07/17 03/08/17 05:59 05:59 05:59 Intake Total 1050 1550 Output Total 30 40 Balance 1020 1510 PT 13.8 SEC (12.0-15.0) 03/05/17 07:40 INR 1.04 (0.83-1.16) 03/05/17 07:40 - Physical Exam Constitutional: appears nourished, not in pain, obese Eyes: PERRL Ears, Nose, Mouth, Throat: hearing normal Cardiovascular: regular rate and rhythym Respiratory: no respiratory distress Gastrointestinal: normoactive bowel sounds, soft, non-tender abdomen Skin: warm Musculoskeletal: full muscle strength Neurologic: AAOx3 Psychiatric: interacting appropriately, anxious ICD10 Worksheet Patient Problems: Problems Problem Status Onset Abdominal pain Acute Vomiting Acute Ventral hernia Acute
[2017-03-07 11:04] VITALS: BP 129/70; PULSE 75; TEMP 98.7; O2SAT 95
[2017-03-07] MEDS: PROMETHAZINE HCL 25 MG/ML INJ IVP PRN (12:28)
--- NOTE | 2017-03-07 14:58 | ASMTCMCOM ---
CM Note CM Note Notes: Patient medically cleared for discharge. No needs identified. Follow up in place. CM availble should needs arise. Date Signed: 03/07/2017 02:58 PM Electronically Signed By:Tammie Alexis RN
--- NOTE | 2017-03-07 21:32 | GDS ---
[f rep st] DISCHARGE SUMMARY DISCHARGE DIAGNOSES: 1. Nausea, vomiting. 2. Dehydration. 3. Back pain. 4. Obesity with a BMI of 35. 5. Gastroesophageal reflux disease. 6. Chronic pain, on continuous opioids. CONSULTATIONS: Dr. Dilcia Copeland. HISTORY OF PRESENT ILLNESS: Briefly, the patient is a 57-year-old female who has a past medical history for chronic pain, GERD, morbid obesity who presented to the emergency room with intractable nausea and vomiting, diffuse abdominal pain. She has no fever or chills or no sick contacts. She was recently hospitalized for a ventral hernia repair with complications related to bowel incarceration and abdominal wall hematoma. She came to the emergency room, and had a CT of the abdomen and pelvis. This showed no small bowel obstruction or colonic obstruction. She has anterior wall hematoma with a drain that looks improved since a recent CT scan. She also had an abdominal x-ray that showed nonspecific gas pattern. Throughout her stay, she had episodes of ongoing nausea. It was noted that she had a dilated stomach pouch, and was seen by Surgery who recommended conservative treatment. Today, she is still having some bouts of nausea with small amount of emesis today. Ativan does help her with these symptoms. She will get a prescription for a few days of this. Also , Dr. Copeland recommended that she see a gastric surgeon to evaluate her gastric stapling, in case this is the etiology of her chronic nausea. She will follow up with Dr. Xander Singh in the [place] area. HOSPITAL COURSE: 1. Nausea and vomiting. This has been ongoing. She had a bout of emesis last night and a small one, but she is tolerating overall clear liquids and regular food. She had a shake earlier today, and was able to keep that down. Further followup with a surgeon down in [place]. 2. Dehydration, doing better. 3. Back pain. Voltaren ordered has helped with this. 4. Obesity. She has a BMI 35. 5. GERD. PPI. 6. Chronic pain. Resumed her home meds and p.r.n. meds. CONDITION ON DISCHARGE: Stable. Blood pressure is 129/70, heart rate is 75, respiratory rate is 16, O2 sats on 2 L are 95%, temperature is 37.1 Celsius. DISCHARGE MEDICATIONS: Please see the EMR. DISCHARGE INSTRUCTIONS: 1. To note that Ativan can cause increased sedation, along with her narcotics, and to be aware of that. 2. To follow up with Dr. Xander Singh. He is a bariatric surgeon in the [place] area. 3. To return to the ER, if she develops fever, chills, chest pain, shortness of breath, or unable to take in adequate intake. Greater than 30 minutes discharging and coordinating her care. /[id number]/MODL MTDD
== END 2017-03-07 15:49 | disposition home or self-care (01) | DRG 392 ==
LOC: F3E 03-05 01:21 → OBSVTOIN 03-05 15:29
PROVIDERS: ADMIT Family Medicine; ATTEND Internal Medicine Pulmonary Disease
DX: R11.2 Nausea with vomiting, unspecified (principal); K31.89 Other diseases of stomach and duodenum; R10.13 Epigastric pain; E86.0 Dehydration; L76.32 Postprocedural hematoma of skin and subcutaneous tissue following other procedure; M54.6 Pain in thoracic spine; M54.2 Cervicalgia; I10 Essential (primary) hypertension; K21.9 Gastro-esophageal reflux disease without esophagitis; Z90.49 Acquired absence of other specified parts of digestive tract; E66.9 Obesity, unspecified; Z68.35 Body mass index [BMI] 35.0-35.9, adult; G89.4 Chronic pain syndrome
CPT/HCPCS: 96374; J1170; J2060; J2405; J2550

== ENCOUNTER → 2017-04-08 | Outpatient (CLI) | payer MEDICAID | END | disposition home or self-care (01) | LOC: FIMAGING 14:58 | PROVIDERS: ATTEND Surgery | DX: R19.02 Left upper quadrant abdominal swelling, mass and lump (principal) ==

== ENCOUNTER 2017-04-30 15:27 | Emergency (ER) | payer MEDICAID ==
[2017-04-30 15:33] VITALS: TEMP 99.7
[2017-04-30] MEDS ORDERED: NS 1,000 ML IV ONE (15:53)
--- NOTE | 2017-04-30 15:56 | EDPHY ---
H & P Time Seen by Provider: 04/30/17 15:45 HPI/ROS: CHIEF COMPLAINT: Left upper abdominal pain and swelling HISTORY OF PRESENT ILLNESS: Patient says symptoms have been going on for 2-3 week. She had a complicated abdominal history with the ventral hernia repair, abdominal wall hematoma, gastric pouch surgery about [address] in our facility dated 03/04/2017 showed an anterior abdominal wall hematoma. She had ultrasound dated 04/08/2017 which did not show any abnormal findings. Patient says her symptoms are getting worse over the last 2 weeks. She has left upper abdominal swelling with much increased severity when she tries to eat or drink anything, associated that with vomiting. Does not radiate. REVIEW OF SYSTEMS: Eye: no change in vision ENT: no sore throat Cardiac: no chest pain or syncope Pulmonary: no cough or SOB Abdomen: HPI Musculoskeletal: Multiple areas of chronic pain, used to have an implanted pain pump and does not currently. Skin: no rash Neuro: no headache Constitutional: no fever : no urinary symptoms A comprehensive 10 point review of systems is otherwise negative aside from elements mentioned in the history of present illness. PAST MEDICAL HISTORY: Gastric surgery as above, cholecystectomy, ventral hernia repair. Social history: Denies alcohol General Appearance: Alert and conversant, cooperative. Eyes: No scleral icterus. ENT, Mouth: Normal mucous membranes. Respiratory: Normal respiratory effort, breath sounds equal, lungs are clear to auscultation. Cardiovascular: Regular rate and rhythm. Gastrointestinal: Some swelling to the left of for ventral incision is seen with tenderness although she does not have rebound guarding or peritoneal signs. Neurological: Alert, face symmetric, normal motor and sensory in extremities. Skin: Warm and dry, no rashes. Musculoskeletal: No peripheral edema. Psychiatric: Not agitated. Emergency Department course/MDM: Plan for IV and labs, CT without IV contrast as she claims anaphylactic contrast reaction. 1638: Negative abdominal pelvic CT except for thin abdominal wall left upper, no bowel obstruction and no mass, no hernia visualized. Results discussed with patient and with Dr. Copeland at this time; she recommends discharging the patient, who is in agreement. Declined additional pain medication. Smoking Status: Never smoked Constitutional: Initial Vital Signs Temperature (C) 37.6 C 04/30/17 15:28 Heart Rate 93 04/30/17 15:28 Respiratory Rate 20 04/30/17 15:28 Blood Pressure 172/116 H 04/30/17 15:28 O2 Sat (%) 97 04/30/17 15:28 O2 Delivery Mode Room Air Allergies/Adverse Reactions: Iodinated Contrast- Oral and IV Dye Allergy (Severe, Verified 03/05/17 02:17) Other-Enter Comments ketorolac tromethamine [From Toradol] Allergy (Severe, Verified 03/05/17 10:20) Hives sumatriptan succinate [From Imitrex] Allergy (Severe, Verified 03/04/17 22:15) Unknown codeine Allergy (Intermediate, Verified 03/04/17 22:15) Rash sumatriptan Allergy (Unknown, Verified 03/05/17 02:34) Unknown diphenhydramine [From Benadryl] Allergy (Verified 03/05/17 02:17) contrast dye Allergy (Severe, Uncoded 03/04/17 22:15) Anaphylaxis ketorolac tromethamine Allergy (Unknown, Uncoded 03/04/17 22:15) Hives sumatriptan succinate Allergy (Unknown, Uncoded 03/04/17 22:15) Unknown Home Medications: Medication Instructions Recorded Aspirin [Aspirin 81mg (*)] 81 mg PO DAILY 02/04/17 Dicyclomine [Bentyl 10 MG (*)] 10 mg PO TID PRN 02/04/17 Ibuprofen [Motrin (*)] 800 mg PO TID PRN 02/04/17 Acetaminophen [Tylenol 325mg (*)] 650 mg PO Q6 PRN tab 02/19/17 Pantoprazole Sodium [Protonix 40mg 40 mg PO DAILY #30 tab 02/19/17 (*)] fentaNYL [Duragesic 50 MCG Patch 50 mcg TD Q72H #5 patch 02/19/17 (*)] oxyCODONE IR [Oxycodone Ir (*)] 15 mg PO Q6 PRN tab 02/19/17 Gabapentin [Neurontin 300 MG (*)] 300 mg PO TID 03/06/17 LORazepam [Ativan (*)] 0.5 mg PO Q8HRS PRN #15 tab 03/07/17 Medical Decision Making - Diagnostics Imaging Results: Imaging Impressions Abdomen/Pelvis CT 04/30/17 15:53 Impression: 1. Decrease in anterior abdominal wall hematoma above the umbilicus near the midline. 2. No significant abnormality identified within the abdomen and pelvis. 3. Significant atrophy and thinning of the left anterior abdominal wall musculature with bulging of the intra-abdominal contents but no focal hernia. There is associated atrophy of the abdominis rectus muscle on the left. Findings discussed with Earl Wilkes M.D. at 16:42 hour, 04/30/2017. Differential Diagnosis: Differential considered including but not limited to ventral hernia, intra- abdominal abscess, abdominal wall hematoma, bowel obstruction. - Data Points Laboratory Results: Laboratory Results 04/30/17 16:15 04/30/17 16:15 04/30/17 04/30/17 16:15 16:15 WBC 6.98 10^3/uL 10^3/uL (3.80-9.50) RBC 5.67 10^6/uL H 10^6/uL (4.18-5.33) Hgb 17.0 g/dL H g/dL (12.6-16.3) Hct 52.2 % H % (38.0-47.0) MCV 92.1 fL fL (81.5-99.8) MCH 30.0 pg pg (27.9-34.1) MCHC 32.6 g/dL g/dL (32.4-36.7) RDW 12.6 % % (11.5-15.2) Plt Count 250 10^3/uL 10^3/uL (150-400) MPV 10.8 fL fL (8.7-11.7) Neut % (Auto) 72.0 % % (39.3-74.2) Lymph % (Auto) 18.5 % % (15.0-45.0) [place] % (Auto) 6.9 % % (4.5-13.0) Eos % (Auto) 1.9 % % (0.6-7.6) Baso % (Auto) 0.4 % % (0.3-1.7) Nucleat RBC Rel Count 0.0 % % (0.0-0.2) Absolute Neuts (auto) 5.03 10^3/uL 10^3/uL (1.70-6.50) Absolute Lymphs (auto) 1.29 10^3/uL 10^3/uL (1.00-3.00) Absolute Monos (auto) 0.48 10^3/uL 10^3/uL (0.30-0.80) Absolute Eos (auto) 0.13 10^3/uL 10^3/uL (0.03-0.40) Absolute Basos (auto) 0.03 10^3/uL 10^3/uL (0.02-0.10) Absolute Nucleated RBC 0.00 10^3/uL 10^3/uL (0-0.01) Immature Gran % 0.3 % % (0.0-1.1) Immature Gran # 0.02 10^3/uL 10^3/uL (0.00-0.10) Sodium 141 mEq/L mEq/L (135-145) Potassium 4.6 mEq/L mEq/L (3.5-5.2) Chloride 107 mEq/L mEq/L (97-110) Carbon Dioxide 21 mEq/l L mEq/l (22-31) Anion Gap 13 mEq/L mEq/L (8-16) BUN 5 mg/dL L mg/dL (7-23) Creatinine 0.6 mg/dL mg/dL (0.6-1.0) Estimated GFR > 60 Glucose 102 mg/dL H mg/dL (70-100) Calcium 10.3 mg/dL mg/dL (8.5-10.4) Total Bilirubin 1.0 mg/dL mg/dL (0.1-1.4) Conjugated Bilirubin 0.4 mg/dL mg/dL (0.0-0.5) Unconjugated Bilirubin 0.6 mg/dL mg/dL (0.0-1.1) AST 43 IU/L IU/L (14-46) ALT 49 IU/L IU/L (9-52) Alkaline Phosphatase 88 IU/L IU/L (38-126) Total Protein 7.7 g/dL g/dL (6.3-8.2) Albumin 4.8 g/dL g/dL (3.5-5.0) Lipase 33 IU/L IU/L (23-300) Medications Given: Discontinued Medications Sodium Chloride (Ns) 1,000 mls @ 0 mls/hr IV EDNOW ONE; Wide Open PRN Reason: Protocol Stop: 04/30/17 15:54 Last Admin: 04/30/17 16:13 Dose: 1,000 mls Departure - Departure Disposition: Home, Routine, Self-Care Clinical Impression: Abdominal pain Qualifiers: Abdominal location: left upper quadrant Qualified Code(s): R10.12 - Left upper quadrant pain Condition: Good Instructions: Acute Abdominal Pain (ED) Referrals: Dilcia Copeland MD [Primary Care Provider] - As per Instructions
[2017-04-30 16:28] LABS: PLATELET COUNT 250 10^3/uL (150-400)
[2017-04-30 18:15] VITALS: BP 156/98; PULSE 78; RESP 16; O2SAT 94
== END 2017-04-30 17:45 | disposition home or self-care (01) ==
DX: R10.12 Left upper quadrant pain (principal); E86.9 Volume depletion, unspecified; Z79.82 Long term (current) use of aspirin; Z90.49 Acquired absence of other specified parts of digestive tract

== ENCOUNTER 2017-05-04 21:18 | Inpatient (IN) | payer MEDICAID ==
[2017-05-04] MEDS ORDERED: NS 1,000 ML IV ONE ×2 (21:48→22:12)
[2017-05-04] MEDS ORDERED: ONDANSETRON 4 MG/2 ML VIAL IVP ONE (21:48)
--- NOTE | 2017-05-04 21:49 | EDPHY ---
H & P Stated Complaint: Abd distention/lump, recent abd surgery, HPI/ROS: HPI CHIEF COMPLAINT: Abdominal pain, nausea, vomiting HISTORY OF PRESENT ILLNESS: This patient is a very pleasant 57-year-old female she has significant past medical history for RSD, chronic back pain, hypertension, and abdominal surgery most recently ventral abdominal hernia repair complicated by a abdominal wall hematoma, she presents to the emergency room tonight with predominantly left-sided abdominal pain. Additionally has nausea. She also reports to me she has had vomiting. States she did have a bowel movement today. No diarrhea. She denies any fever. Denies chest pain or shortness of breath. Pain is located in the left upper quadrant and left lower quadrant. She also complains that is distended. Past Medical History: Chronic back pain, RSD, hypertension, abdominal hernia ( wears Fentanyl Patch) Past Surgical History: Breast augmentation, lumpectomy, gallbladder, abdominal hernia repair Social History: Denies drugs alcohol tobacco. Family History: Noncontributory ROS REVIEW OF SYSTEMS: A comprehensive 10 point review of systems is otherwise negative aside from elements mentioned in the history of present illness. Exam Constitutional appears well nontoxic no acute distress triage nursing summary reviewed, vital signs reviewed, awake/alert. Eyes normal conjunctivae and sclera, EOMI, PERRLA. HENT normal inspection, atraumatic, moist mucus membranes, no epistaxis, neck supple/ no meningismus, no raccoon eyes. Respiratory clear to auscultation bilaterally, normal breath sounds, no respiratory distress, no wheezing. Cardiovascular rate normal, regular rhythm, no murmur, no edema, distal pulses normal. Gastrointestinal rather large abdomen, midline abdominal scar, tender palpation left mid abdomen and left lower quadrant, with some distension possible hernia. Genitourinary no CVA tenderness. Musculoskeletal no midline vertebral tenderness, full range of motion, no calf swelling, no tenderness of extremities, no meningismus, good pulses, neurovascularly intact. Skin pink, warm, & dry, no rash, skin atraumatic. Neurologic awake, alert and oriented x 3, AAOx3, moves all 4 extremities equally, motor intact, sensory intact, CN II-XII intact, normal cerebellar, normal vision, normal speech. Psychiatric normal mood/affect. Heme/Lymph/Immune no lymphadenopathy. Differential diagnosis includes but is not limited to and in no particular order : Bowel obstruction, appendicitis, gallbladder disease, diverticulitis, colitis , enteritis, perforated viscus, gastritis, GERD, esophagitis, urinary tract infection, pyelonephritis, kidney stones Medical Decision Making: Plan for this patient IV establishment IV fluid bolus , IV Zofran for nausea, IV Dilaudid for pain control, basic blood work, CT scan abdomen pelvis with IV contrast and re-evaluate. Re-evaluation: 2252: Dr. Copeland and has seen and evaluated the patient. Recommends NG tube. Does not recommend repeat CT imaging as she has had previous multiple CT scans. Does not feel she has an acute surgical abdomen at this time. Previous CT scan from 4 days ago reviewed. Will proceed with NG tube. KUB. IV fluids. Will repeat lactic acid as her initial lactic was high at 2.9. KUB shows good placement of a nasogastric tube. No abnormal bowel gas pattern. No free air. No obstruction. 1221: Lab work reviewed consistent with dehydration with a concentrated H&H, low bicarb from combination of dehydration and lactic acidosis. Her initial lactic acid was 2.9. Repeat lactic acid after 2 L of fluid is pending. I do not believe she septic her lactic acid was elevated due to dehydration from nausea vomiting. I did re-evaluate her at this time she is feeling much better after NG tube. IV Dilaudid as been given for pain control this makes her feel comfortable. She has not had any vomiting here. She will be admitted to the hospitalist service for further hydration nausea and vomiting control. Source: Patient - Personal History Current Tetanus Diphtheria and Acellular Pertussis (TDAP): Yes Tetanus Vaccine Date: 2014 - Medical/Surgical History Hx Asthma: No Hx Chronic Respiratory Disease: No Hx Diabetes: No Hx Cardiac Disease: No Hx Renal Disease: No Hx Cirrhosis: No Hx Alcoholism: No Hx HIV/AIDS: No Hx Splenectomy or Spleen Trauma: No Other PMH: RSD, in state since September, Hx Pain pump, Choleyctectomy-2014, tonsillectomy, fatty tumor R breast, Bilateral breast augmentation, gastroplasty 1997, CAP 2015. - Social History Smoking Status: Never smoked Constitutional: Initial Vital Signs Temperature (C) 37.3 C 05/04/17 21:23 Heart Rate 129 H 05/04/17 21:23 Respiratory Rate 20 05/04/17 21:23 Blood Pressure 139/100 H 05/04/17 21:23 O2 Sat (%) 91 L 05/04/17 21:23 O2 Delivery Mode Nasal Cannula O2 (L/minute) 3 Allergies/Adverse Reactions: Iodinated Contrast- Oral and IV Dye Allergy (Severe, Verified 05/04/17 21:21) Other-Enter Comments ketorolac tromethamine [From Toradol] Allergy (Severe, Verified 05/04/17 21:21) Hives sumatriptan succinate [From Imitrex] Allergy (Severe, Verified 05/04/17 21:21) Unknown codeine Allergy (Intermediate, Verified 05/04/17 21:21) Rash sumatriptan Allergy (Unknown, Verified 05/04/17 21:21) Unknown diphenhydramine [From Benadryl] Allergy (Verified 05/04/17 21:21) contrast dye Allergy (Severe, Uncoded 05/04/17 21:21) Anaphylaxis ketorolac tromethamine Allergy (Unknown, Uncoded 05/04/17 21:21) Hives sumatriptan succinate Allergy (Unknown, Uncoded 05/04/17 21:21) Unknown Home Medications: Medication Instructions Recorded Aspirin [Aspirin 81mg (*)] 81 mg PO DAILY 02/04/17 Dicyclomine [Bentyl 10 MG (*)] 10 mg PO TID PRN 02/04/17 Ibuprofen [Motrin (*)] 800 mg PO TID PRN 02/04/17 Acetaminophen [Tylenol 325mg (*)] 650 mg PO Q6 PRN tab 02/19/17 Pantoprazole Sodium [Protonix 40mg 40 mg PO DAILY #30 tab 02/19/17 (*)] fentaNYL [Duragesic 50 MCG Patch 50 mcg TD Q72H #5 patch 02/19/17 (*)] oxyCODONE IR [Oxycodone Ir (*)] 15 mg PO Q6 PRN tab 02/19/17 Gabapentin [Neurontin 300 MG (*)] 300 mg PO TID 03/06/17 LORazepam [Ativan (*)] 0.5 mg PO Q8HRS PRN #15 tab 03/07/17 Medical Decision Making - Diagnostics Imaging Results: Imaging Impressions Abdomen X-Ray 05/04/17 22:26 Impression: Negative. No evidence of obstruction or adynamic ileus. No significant change since 4 days prior. - Data Points Laboratory Results: Laboratory Results 05/04/17 21:56 05/04/17 21:56 05/04/17 05/04/17 05/04/17 21:56 21:56 21:56 WBC RBC Hgb Hct MCV MCH MCHC RDW Plt Count MPV Neut % (Auto) Lymph % (Auto) Bertie % (Auto) Eos % (Auto) Baso % (Auto) Nucleat RBC Rel Count Absolute Neuts (auto) Absolute Lymphs (auto) Absolute Monos (auto) Absolute Eos (auto) Absolute Basos (auto) Absolute Nucleated RBC Immature Gran % Immature Gran # PT Pending INR Pending APTT Pending VBG Lactic Acid Sodium 143 mEq/L mEq/L (135-145) Potassium 5.3 mEq/L H mEq/L (3.5-5.2) Chloride 109 mEq/L mEq/L (97-110) Carbon Dioxide 16 mEq/l L mEq/l (22-31) Anion Gap 18 mEq/L H mEq/L (8-16) BUN 5 mg/dL L mg/dL (7-23) Creatinine 0.7 mg/dL mg/dL (0.6-1.0) Estimated GFR > 60 Glucose 104 mg/dL H mg/dL (70-100) Calcium 9.3 mg/dL mg/dL (8.5-10.4) Total Bilirubin 0.6 mg/dL mg/dL (0.1-1.4) Conjugated Bilirubin 0.6 mg/dL H mg/dL (0.0-0.5) Unconjugated Bilirubin 0.0 mg/dL mg/dL (0.0-1.1) AST 44 IU/L IU/L (14-46) ALT 40 IU/L IU/L (9-52) Alkaline Phosphatase 68 IU/L IU/L (38-126) Total Protein 7.5 g/dL g/dL (6.3-8.2) Albumin 4.4 g/dL g/dL (3.5-5.0) Lipase 46 IU/L IU/L (23-300) Specimen Hemolysis 160 Urine Color COLORLESS Urine Appearance CLEAR Urine pH 6.0 (5.0-7.5) Ur Specific [place] < 1.001 L (1.002-1.030) Urine Protein NEGATIVE (NEGATIVE) Urine Ketones NEGATIVE (NEGATIVE) Urine Blood NEGATIVE (NEGATIVE) Urine Nitrate NEGATIVE (NEGATIVE) Urine Bilirubin NEGATIVE (NEGATIVE) Urine Urobilinogen NEGATIVE EU EU (0.2-1.0) Ur Leukocyte Esterase NEGATIVE (NEGATIVE) Urine Glucose NEGATIVE (NEGATIVE) 05/04/17 05/04/17 21:56 21:56 WBC 8.28 10^3/uL 10^3/uL (3.80-9.50) RBC 5.42 10^6/uL H 10^6/uL (4.18-5.33) Hgb 16.2 g/dL g/dL (12.6-16.3) Hct 50.6 % H % (38.0-47.0) MCV 93.4 fL fL (81.5-99.8) MCH 29.9 pg pg (27.9-34.1) MCHC 32.0 g/dL L g/dL (32.4-36.7) RDW 13.0 % % (11.5-15.2) Plt Count 259 10^3/uL 10^3/uL (150-400) MPV 10.9 fL fL (8.7-11.7) Neut % (Auto) 43.6 % % (39.3-74.2) Lymph % (Auto) 42.0 % % (15.0-45.0) Bertie % (Auto) 8.3 % % (4.5-13.0) Eos % (Auto) 4.3 % % (0.6-7.6) Baso % (Auto) 1.3 % % (0.3-1.7) Nucleat RBC Rel Count 0.0 % % (0.0-0.2) Absolute Neuts (auto) 3.60 10^3/uL 10^3/uL (1.70-6.50) Absolute Lymphs (auto) 3.48 10^3/uL H 10^3/uL (1.00-3.00) Absolute Monos (auto) 0.69 10^3/uL 10^3/uL (0.30-0.80) Absolute Eos (auto) 0.36 10^3/uL 10^3/uL (0.03-0.40) Absolute Basos (auto) 0.11 10^3/uL H 10^3/uL (0.02-0.10) Absolute Nucleated RBC 0.00 10^3/uL 10^3/uL (0-0.01) Immature Gran % 0.5 % % (0.0-1.1) Immature Gran # 0.04 10^3/uL 10^3/uL (0.00-0.10) PT INR APTT VBG Lactic Acid 2.9 mmol/L H mmol/L (0.7-2.1) Sodium Potassium Chloride Carbon Dioxide Anion Gap BUN Creatinine Estimated GFR Glucose Calcium Total Bilirubin Conjugated Bilirubin Unconjugated Bilirubin AST ALT Alkaline Phosphatase Total Protein Albumin Lipase Specimen Hemolysis Urine Color Urine Appearance Urine pH Ur Specific [place] Urine Protein Urine Ketones Urine Blood Urine Nitrate Urine Bilirubin Urine Urobilinogen Ur Leukocyte Esterase Urine Glucose Medications Given: Discontinued Medications Famotidine (Pepcid) 20 mg IVP EDNOW ONE Stop: 05/04/17 22:55 Last Admin: 05/04/17 23:05 Dose: 20 mg Hydromorphone HCl (Dilaudid) 1 mg IVP EDNOW ONE Stop: 05/04/17 21:55 Last Admin: 05/04/17 22:02 Dose: 1 mg Hydromorphone HCl (Dilaudid) 2 mg IVP EDNOW ONE Stop: 05/04/17 22:53 Last Admin: 05/04/17 22:55 Dose: 2 mg Sodium Chloride (Ns) 1,000 mls @ 0 mls/hr IV EDNOW ONE; Wide Open PRN Reason: Protocol Stop: 05/04/17 21:49 Last Admin: 05/04/17 22:02 Dose: 1,000 mls Sodium Chloride (Ns) 1,000 mls @ 0 mls/hr IV ONCE ONE PRN Reason: Wide Open Stop: 05/04/17 22:13 Last Admin: 05/04/17 22:39 Dose: 1,000 mls Ondansetron HCl (Zofran) 4 mg IVP EDNOW ONE Stop: 05/04/17 21:49 Last Admin: 05/04/17 22:02 Dose: Not Given Departure - Departure Disposition: [facility] Clinical Impression: Dehydration Vomiting Qualifiers: Vomiting type: unspecified Vomiting Intractability: non-intractable Nausea presence: with nausea Qualified Code(s): R11.2 - Nausea with vomiting, unspecified Chronic pain Qualifiers: Chronic pain type: other chronic pain Qualified Code(s): G89.29 - Other chronic pain Condition: Fair
[2017-05-04] MEDS ORDERED: HYDROmorphONE/DILAUDID 1 MG/ML INJ IVP ONE ×2 (21:54→22:52)
[2017-05-04] MEDS ORDERED: IOPAMIDOL (ISOVUE-300) 100 ML BTL ONE (21:55)
[2017-05-04 22:13] LABS: PLATELET COUNT 259 10^3/uL (150-400)
[2017-05-04] MEDS ORDERED: FAMOTIDINE 20 MG/2 ML SDV IVP ONE (22:54)
[2017-05-05 00:50] LABS: INR 1.1 (0.83-1.16); PROTIME(PATIENT) 14.4 SEC (12.0-15.0)
[2017-05-05] MEDS ORDERED: ONDANSETRON 4 MG/2 ML VIAL IVP PRN (01:08)
[2017-05-05] MEDS ORDERED: NS 1,000 ML IV SCH (01:15)
--- NOTE | 2017-05-05 01:17 | GCON ---
[f rep st] CONSULTATION HISTORY AND PHYSICAL DATE OF CONSULTATION: 05/04/2017 CHIEF COMPLAINT: Left upper quadrant pain. HISTORY OF PRESENT ILLNESS: The patient is a very pleasant 57-year-old woman with past medical histo ry significant for chronic pain, morbid obesity, gastroesophageal reflux disease, and a recent comple x ventral hernia repair February 05, 2017. I did a laparoscopic component release and open ventral he rnia repair. She initially had a hematoma more on the right inferior aspect. She had issues with vo miting before surgery and even with ventral hernia repair this did not resolve after. She went and s aw a bariatric surgeon to discuss her pouch because I felt that there could be dysfunction with the p ouch and unfortunately, he misunderstood the reason for the consult. Over the past month, she has be en dealing with a bulge in her left upper quadrant. She has had several imaging studies that have no t showed any intraabdominal complications and no hernia. In [place], she did have upper GI swallow, w hich showed delayed emptying of the pouch, but it eventually did empty. She has been having nausea a nd vomiting and increasing pain since Wednesday. She has been able to tolerate very little p.o. intak e. She feels that when the mass is large, it is actually ripping the mesh inside of her. PAST MEDICAL HISTORY: Chronic pain, GERD, morbid obesity, RSV. PAST SURGICAL HISTORY: Lumpectomy, cholecystectomy, stomach stapling, ventral hernia repair. FAMILY HISTORY: Hemochromatosis. SOCIAL HISTORY: She lives with her . She does not drink, use tobacco products, or use drugs. REVIEW OF SYSTEMS: Significant for glasses, teariness. Otherwise per HPI. Otherwise, 10-point revi ew of systems negative. PHYSICAL EXAMINATION: VITALS: Reviewed. She is slightly hypertensive and is tachycardic. HEENT: Normocephalic; no gross hearing deficits. Mucous membranes moist. Pupils equal and round. No scler al icterus. LUNGS: Clear to auscultation bilaterally. No increased work of breathing. CARDIAC: T achycardic. No peripheral edema. ABDOMEN: Bowel sounds are present. She has a distinct bulge in h er left upper abdomen that is more prominent when she is standing. It is supine. I do not feel a he rnia defect. The firmness at the inferior portion of her abdominal incision is improved. PSYCH: Te arful. NEURO: Grossly intact. LABORATORY DATA: Reviewed. I personally went and reviewed all her imaging, and her fascia is intact , and there is no evidence hernia. I do not see any subcutaneous findings that would explain the mas s. Her stomach is below the area on the scan where she is symptomatic. IMPRESSION AND PLAN: The patient is a 57-year-old woman with a left upper quadrant mass that is caus ing pain. She has associated nausea and vomiting. My recommendations would be that she would be adm itted, she could consider a Lidoderm patch, she could consider an abdominal binder, and after rehydra tion consider scope with GI. She may need to revisit with a bariatric surgeon. There is no acute ernst rgical intervention needed at this time. I will continue to follow her. /[id number]/[id number]
[2017-05-05] MEDS: HYDROmorphONE/DILAUDID 2 MG/ML INJ IVP PRN ×4 (01:52→16:52)
[2017-05-05] MEDS: THIAMINE HCL 500 MG in NS 500 ML IV SCH ×2 (01:53→10:18)
[2017-05-05] MEDS: 1/2 NS 1,000 ML IV SCH ×2 (03:48→14:37)
[2017-05-05] MEDS: LORazepam 2 MG/ML INJ IVP PRN (03:48)
[2017-05-05] MEDS ORDERED: ASPIRIN 81 MG CHEWABLE TAB PO PRN (08:40)
--- NOTE | 2017-05-05 08:49 | PDGENHP ---
History and Physical - Chief Complaint Intractable nausea vomiting, abdominal pain - History of Present Illness Source-patient provides history she is a fair historian and consistent in certain details the incongruent with provider evaluation. EMR was reviewed case discussed with accepting hospitalist. Consultation note from Dr. Copeland was reviewed as she is quite familiar with the patient. HPI - pleasant 57-year-old female with past medical history significant for morbid obesity status post stomach stapling, chronic pain on a chronic narcotic therapy, HTN, regional pain syndrome, recent history of abdominal ventral hernia repair complicated by hematoma completed in February who presents emergency department today with complaints of left upper quadrant pain intractable nausea vomiting. Patient reports some subjective fevers no chills. She has been experiencing increasing distention particular left upper quadrant she is concerned that she has been developing increasing mass. Will usually be improved after lying down but more recently has been present consistently. Patient notes that she has been having a significant epigastric and left upper quadrant abdominal pain that is very tender. Patient has also been experiencing nausea vomiting without any hematemesis. She previously had evaluation with gastric emptying study that did show some slowing. Patient has had multiple CTs of her abdomen pelvis recently without any evidence of a source for her left upper quadrant abdominal distension. Patient reports that she has been having of formed soft bowel movements last being day prior. She does report that she has not had any urine output since prior to arriving to the hospital floor for over 12 hr however nursing a did report patient had a void. Patient reports chronic low back pain which is stable. In the emergency department it was noted that patient had a large container of 8% alcoholic beverage in the room. It was noted that approximately 1/4 was still empty. Patient reports that she reported the bottle and she is not sure who is it was but denies that she had been drinking any alcohol. During the course of the interview when patient was asked regarding any alcohol intake at home she reported yes when has been drinks. She denies any recent alcohol intake as she has had persistent nausea vomiting and has been unable to keep anything down. Her alcohol level in the emergency department was 122. When asked regarding this patient reports she must of been due to dosing of her cough syrup. History Information - Allergies/Home Medication List Allergies/Adverse Reactions: Iodinated Contrast- Oral and IV Dye Allergy (Severe, Verified 05/04/17 21:21) Other-Enter Comments ketorolac tromethamine [From Toradol] Allergy (Severe, Verified 05/04/17 21:21) Hives sumatriptan succinate [From Imitrex] Allergy (Severe, Verified 05/04/17 21:21) Unknown codeine Allergy (Intermediate, Verified 05/04/17 21:21) Rash sumatriptan Allergy (Unknown, Verified 05/04/17 21:21) Unknown diphenhydramine [From Benadryl] Allergy (Verified 05/04/17 21:21) contrast dye Allergy (Severe, Uncoded 05/04/17 21:21) Anaphylaxis ketorolac tromethamine Allergy (Unknown, Uncoded 05/04/17 21:21) Hives sumatriptan succinate Allergy (Unknown, Uncoded 05/04/17 21:21) Unknown Home Medications: Aspirin [Aspirin 81mg (*)] 81 mg PO DAILY PRN 02/04/17 [Last Taken 04/30/17] Metoclopramide [Reglan 5 mg (*)] 5 mg PO QID 05/05/17 [Last Taken 05/04/17 18:00 ] Zolpidem Tartrate [Ambien 5MG (*)] 10 mg PO HS PRN 05/05/17 [Last Taken 05/03/17 ] fentaNYL [Duragesic 12 MCG Patch (*)] 12 mcg TD Q72H 05/05/17 [Last Taken ] fentaNYL [Duragesic 25 MCG Patch (*)] 25 mcg TD Q72H 05/05/17 [Last Taken ] oxyCODONE IR [Oxycodone Ir (*)] 15 mg PO Q4HRS 05/05/17 [Last Taken 05/04/17 21: 00] I have personally reviewed and updated: family history, medical history, social history, surgical history - Past Medical History Additional medical history: Morbid obesity (BMI 47.2), HTN, chronic pain syndrome, chronic abdominal pain with history of ventral hernia repair complicated by hematoma. - Surgical History Additional surgical history: Breast augmentation, lumpectomy, cholecystectomy, abdominal hernia repair as noted above. - Family History Additional family history: Brother with some sort of hematologic bleeding disorder the patient cannot recall. Patient has 6 siblings all remainder are healthy per her report. - Social History Smoking Status: Never smoked Alcohol Use: Occasionally (Patient denies any daily or heavy alcohol intake.) Drug Use: None Additional social history: Patient is lives with her . Code status full. Review of Systems Review of Systems: ROS: 10pt was reviewed & negative except for what was stated in HPI & below Constitutional: Reports: fever (Subjective). Denies: chills EENMT: Reports: blurred vision (Slightly increased blurry vision.), nose congestion, sore throat, other (Patient wears glasses). Denies: double vision Cardiac: Reports: palpitations. Denies: chest pain, irregular heart rate, lightheadedness Respiratory: Reports: other (Patient reports decreased respiratory reserve with exertion.). Denies: cough, shortness of breath Gastrointestinal: Reports: vomitting, abdominal pain (See HPI), nausea. Denies : black stools, diarrhea Genitourinary: Reports: other (Patient reports decreased urine output). Denies : dysuria, hematuria Muscolosketal: Reports: back pain (Chronic), joint pain, muscle pain, neck pain Skin: Reports: no symptoms, change in color Neurological: Reports: headache (Times 24 hr.), numbness (Intermittently between her ft and hands) Hematologic/Lymphatic: Denies: anemia, easy bruising Physical Exam Physical Exam: Selected Entries 05/04/17 21:23 Blood Pressure Automatic Method Heart Rate 129 H Respiratory 20 Rate O2 Sat (%) 91 L Temperature (C) 37.3 C Blood Pressure 139/100 H Mean Arterial 113 H Pressure (MAP) O2 Delivery Room Air Mode Temperature Oral Source Temp Pulse Resp BP Pulse Ox 36.7 C 97 18 128/85 H 94 05/05/17 07:23 05/05/17 07:23 05/05/17 07:23 05/05/17 07:23 05/05/17 07:23 O2 (L/minute) 4 Constitutional: no apparent distress, obese, other (NAD. Patient is lying comfortably in bed when I enter the room.) Eyes: PERRL, anicteric sclera, EOMI Ears, Nose, Mouth, Throat: dry mucous membranes (Particularly dry.), other (No nasal discharge.), No poor dentition Cardiovascular: regular rate and rhythym, no murmur, rub, or gallop, pulses symmetric bilaterally, No edema Peripheral Pulses: 2+: dorsalis-pedis (R), dorsalis-pedis (L) Respiratory: no respiratory distress, no rales or rhonchi, clear to auscultation , No expiratory wheeze Gastrointestinal: soft, non-tender abdomen, no palpable masses, distension ( Obese abdomen. Left upper quadrant with notable increased in distension that is circular on quite tender but soft.), other (Hypoactive bowel sounds. Abdominal incisions are quite well healed.), No ascites, No ceballos's sign Genitourinary: no bladder tenderness, No soler in urethra Skin: warm, normal color, no rashes or abrasions, other (Patient appears slightly flushed), No mottled Musculoskeletal: full muscle strength, other (Patient able to sit up independently. Moves extremities. Complaints of some pain with movement) Neurologic: AAOx3, sensation intact bilaterally, No weakness, No facial droop Psychiatric: not encephalopathic, thought process linear, anxious, other ( Patient slightly tangential but cooperative and redirectable. Patient is slightly increased rate of speech but it is not pressured. Thought process content and questions are otherwise appropriate.), No depressed, No poor insight , No poor judgement, No poor memory Lab Data & Imaging Review 05/05/17 05:46 05/05/17 05:46 WBC 7.77 10^3/uL (3.80-9.50) 05/05/17 05:46 RBC 4.81 10^6/uL (4.18-5.33) 05/05/17 05:46 Hgb 14.4 g/dL (12.6-16.3) 05/05/17 05:46 Hct 44.4 % (38.0-47.0) 05/05/17 05:46 MCV 92.3 fL (81.5-99.8) 05/05/17 05:46 MCH 29.9 pg (27.9-34.1) 05/05/17 05:46 MCHC 32.4 g/dL (32.4-36.7) 05/05/17 05:46 RDW 12.9 % (11.5-15.2) 05/05/17 05:46 Plt Count 196 10^3/uL (150-400) D 05/05/17 05:46 MPV 10.9 fL (8.7-11.7) 05/04/17 21:56 Neut % (Auto) 43.6 % (39.3-74.2) 05/04/17 21:56 Lymph % (Auto) 42.0 % (15.0-45.0) 05/04/17 21:56 [place] % (Auto) 8.3 % (4.5-13.0) 05/04/17 21:56 Eos % (Auto) 4.3 % (0.6-7.6) 05/04/17 21:56 Baso % (Auto) 1.3 % (0.3-1.7) 05/04/17 21:56 Nucleat RBC Rel Count 0.0 % (0.0-0.2) 05/04/17 21:56 Absolute Neuts (auto) 3.60 10^3/uL (1.70-6.50) 05/04/17 21:56 Absolute Lymphs (auto) 3.48 10^3/uL (1.00-3.00) H 05/04/17 21:56 Absolute Monos (auto) 0.69 10^3/uL (0.30-0.80) 05/04/17 21:56 Absolute Eos (auto) 0.36 10^3/uL (0.03-0.40) 05/04/17 21:56 Absolute Basos (auto) 0.11 10^3/uL (0.02-0.10) H 05/04/17 21:56 Absolute Nucleated RBC 0.00 10^3/uL (0-0.01) 05/04/17 21:56 Immature Gran % 0.5 % (0.0-1.1) 05/04/17 21:56 Immature Gran # 0.04 10^3/uL (0.00-0.10) 05/04/17 21:56 PT 14.4 SEC (12.0-15.0) 05/05/17 00:24 INR 1.10 (0.83-1.16) 05/05/17 00:24 APTT 20.8 SEC (23.0-38.0) L 05/05/17 00:24 VBG Lactic Acid 1.7 mmol/L (0.7-2.1) D 05/05/17 00:24 Sodium 143 mEq/L (135-145) 05/05/17 05:46 Potassium 4.4 mEq/L (3.5-5.2) 05/05/17 05:46 Chloride 111 mEq/L (97-110) H 05/05/17 05:46 Carbon Dioxide 20 mEq/l (22-31) L 05/05/17 05:46 Anion Gap 12 mEq/L (8-16) 05/05/17 05:46 BUN 3 mg/dL (7-23) L 05/05/17 05:46 Creatinine 0.6 mg/dL (0.6-1.0) 05/05/17 05:46 Estimated GFR > 60 05/05/17 05:46 Glucose 89 mg/dL (70-100) 05/05/17 05:46 Calcium 8.5 mg/dL (8.5-10.4) 05/05/17 05:46 Magnesium 1.8 mg/dL (1.6-2.3) 05/05/17 05:46 Total Bilirubin 0.2 mg/dL (0.1-1.4) D 05/05/17 05:46 Conjugated Bilirubin 0.6 mg/dL (0.0-0.5) H 05/04/17 21:56 Unconjugated Bilirubin 0.0 mg/dL (0.0-1.1) 05/04/17 21:56 AST 33 IU/L (14-46) 05/05/17 05:46 ALT 44 IU/L (9-52) 05/05/17 05:46 Alkaline Phosphatase 55 IU/L (38-126) 05/05/17 05:46 Total Protein 6.0 g/dL (6.3-8.2) L 05/05/17 05:46 Albumin 3.5 g/dL (3.5-5.0) 05/05/17 05:46 Lipase 46 IU/L (23-300) 05/04/17 21:56 Specimen Hemolysis 160 05/04/17 21:56 Urine Color COLORLESS 05/04/17 21:56 Urine Appearance CLEAR 05/04/17 21:56 Urine pH 6.0 (5.0-7.5) 05/04/17 21:56 Ur Specific [place] < 1.001 (1.002-1.030) L 05/04/17 21:56 Urine Protein NEGATIVE (NEGATIVE) 05/04/17 21:56 Urine Ketones NEGATIVE (NEGATIVE) 05/04/17 21:56 Urine Blood NEGATIVE (NEGATIVE) 05/04/17 21:56 Urine Nitrate NEGATIVE (NEGATIVE) 05/04/17 21:56 Urine Bilirubin NEGATIVE (NEGATIVE) 05/04/17 21:56 Urine Urobilinogen NEGATIVE EU (0.2-1.0) 05/04/17 21:56 Ur Leukocyte Esterase NEGATIVE (NEGATIVE) 05/04/17 21:56 Urine Glucose NEGATIVE (NEGATIVE) 05/04/17 21:56 Ethyl Alcohol 122 mg/dL (0-10) H 05/05/17 00:24 Laboratory Tests 05/04/17 05/04/17 05/04/17 21:56 21:56 21:56 WBC 8.28 RBC 5.42 H Hgb 16.2 Hct 50.6 H MCV 93.4 MCH 29.9 MCHC 32.0 L RDW 13.0 Plt Count 259 MPV 10.9 Neut % (Auto) 43.6 Lymph % (Auto) 42.0 [place] % (Auto) 8.3 Eos % (Auto) 4.3 Baso % (Auto) 1.3 Nucleat RBC Rel Count 0.0 Absolute Neuts (auto) 3.60 Absolute Lymphs (auto) 3.48 H Absolute Monos (auto) 0.69 Absolute Eos (auto) 0.36 Absolute Basos (auto) 0.11 H Absolute Nucleated RBC 0.00 Immature Gran % 0.5 Immature Gran # 0.04 PT INR APTT VBG Lactic Acid 2.9 H Sodium 143 Potassium 5.3 H Chloride 109 Carbon Dioxide 16 L Anion Gap 18 H BUN 5 L Creatinine 0.7 Estimated GFR > 60 Glucose 104 H Calcium 9.3 Total Bilirubin 0.6 Conjugated Bilirubin 0.6 H Unconjugated Bilirubin 0.0 AST 44 ALT 40 Alkaline Phosphatase 68 Total Protein 7.5 Albumin 4.4 Lipase 46 Specimen Hemolysis 160 05/05/17 05/05/17 05/05/17 00:24 00:24 00:24 WBC RBC Hgb Hct MCV MCH MCHC RDW Plt Count MPV Neut % (Auto) Lymph % (Auto) [place] % (Auto) Eos % (Auto) Baso % (Auto) Nucleat RBC Rel Count Absolute Neuts (auto) Absolute Lymphs (auto) Absolute Monos (auto) Absolute Eos (auto) Absolute Basos (auto) Absolute Nucleated RBC Immature Gran % Immature Gran # PT 14.4 INR 1.10 APTT 20.8 L VBG Lactic Acid 1.7 D Sodium 150 H Potassium 4.4 Chloride 111 H Carbon Dioxide 21 L Anion Gap 18 H BUN 4 L Creatinine 0.7 Estimated GFR > 60 Glucose 94 Calcium 8.6 Total Bilirubin Conjugated Bilirubin Unconjugated Bilirubin AST ALT Alkaline Phosphatase Total Protein Albumin Lipase Specimen Hemolysis Imaging Review: Abdomen single view 11:03 PM Indication: Abdominal pain Comparison: CT abdomen pelvis dated April 30, 2017 Findings: Esophagogastric tube is present with the tip overlying the cardiac segment of the stomach. The side-port is present at the esophagogastric junction. Lung bases are clear. No dilated loops of small or large bowel. Bowel gas pattern is similar to 4 days prior. A residual old neurostimulator lead versus catheter in the subcutaneous fat along the right flank is unchanged. Impression: Negative. No evidence of obstruction or adynamic ileus. No significant change since 4 days prior. Assessment & Plan Assessment: Abdominal pain - etiology for patient's abdominal pain is still unclear. Previous imaging did reveal any concerning findings. Dr. Ballard was consulted from the emergency department will plan to follow the patient. May need to consider GI evaluation at some point. She currently has an NG tube in place her symptoms are improved but not resolved at this point. Continue to keep patient p. O.. NG tube to intermittent suction. Pain management IV until patient's diet is advanced per surgery. Lactic acidosis - suspect secondary to severe dehydration. Patient's initial lactate was 2.9 now down trended to 1.7 following several L of IV fluids. Will continue aggressive IV fluid in this patient will be NPO. She does still appear to be quite dehydrated with very dry mucous membranes. Dehydration (Acute) - continue aggressive IV fluid hydration as noted above. Nausea /Vomiting (Acute) - patient has status post antiemetics and will continue these p.r.n.. She has not had any further episodes of nausea or vomiting. NG tube is in place as noted above. Positive alcohol level-patient denies of the bottle in her room was her is. Approximately on a 1/4 was used of bottle per ED provider. Patient will be started CIWA protocol given thiamine and multivitamin replacement. Chronic medical issues Chronic pain (Acute) with chronic narcotic dependence - IV p.r.n. Medications at this time until patient's diet is advanced in home medications can be resumed. Regional pain syndrome - as noted above. Benign essential hypertension - monitor BP is. One hundred p.r.n. Until patient 's diet can be advanced home medications can be resumed. Morbid obesity(47.2) FEN - continue aggressive IV fluids as noted above. Electrolyte Maximo replacement p.r.n.. NPO status at this time as patient has NG tube to intermittent suction. PPX-SCDs. Anticoagulation with Lovenox. Will recommend mobilization as tolerated given patient's complaint of back pain. Cor status-full Disposition patient has been admitted to observation status at this time the medical floor pending repeat laboratory studies IV fluid hydration and further recommendations from the specialist service.
[2017-05-05] MEDS ORDERED: ENOXAPARIN 40 MG/0.4 ML SYR SC SCH (09:00)
[2017-05-05] MEDS: oxyCODONE IR 15 MG TAB PO SCH ×4 (09:13→21:41)
[2017-05-05] MEDS: fentaNYL 25 MCG PATCH TD SCH (09:16)
[2017-05-05] MEDS: fentaNYL 12 MCG PATCH TD SCH (09:16)
[2017-05-05] MEDS: ONDANSETRON 4 MG/2 ML VIAL IVP SCH ×4 (10:20→21:41)
[2017-05-05] MEDS: MULTIVITAMINS 1 EACH TAB PO SCH (10:22)
[2017-05-05] MEDS: chlordiazePOXIDE 25 MG CAP PO SCH ×2 (10:22→16:38)
[2017-05-05] MEDS: FOLIC ACID 1 MG TAB PO SCH (10:22)
[2017-05-05] MEDS: LIDOCAINE 4%/MENTHOL 1% PATCH TD SCH (10:41)
[2017-05-05] MEDS: FAMOTIDINE 20 MG/NACL 50 ML IV SCH ×2 (10:42→21:41)
[2017-05-05] MEDS: METOCLOPRAMIDE 5 MG TAB PO SCH ×3 (12:36→21:41)
--- NOTE | 2017-05-05 14:59 | SOAPPROG ---
[facility] Progress Note Assessment/Plan: Assessment/Plan: 57yo F well-known to our service for previous large ventral hernia repair now admitted with abdominal pain and distension All previous imaging without evidence of recurrent ventral hernia NGT to suction Large LUQ mass persists Previous upper GI showed slow but eventual gastric emptying Has been seen by bariatric surgery in [place] who did not recommend revision/ further intervention Eval by GI today Appreciate hospitalists Seen c Dr. martinez. S: very uncomfortable this am. pain. O: pleasant woman NAD, laying comfortably in bed No increased WOB NG tube in place to suction +BS, abd distended with large fullness in LUQ, tender to palpation. Previous midline incision well-healed Objective: Vital Signs Temp Pulse Resp BP Pulse Ox 36.7 C 100 18 114/88 H 93 05/05/17 12:00 05/05/17 12:00 05/05/17 12:00 05/05/17 12:00 05/05/17 12:00 Laboratory Results 05/05/17 05:46 05/05/17 05:46 05/04/17 05/05/17 05/06/17 05:59 05:59 05:59 Intake Total 2000 Output Total 400 Balance 2000 -400 PT 14.4 SEC (12.0-15.0) 05/05/17 00:24 INR 1.10 (0.83-1.16) 05/05/17 00:24 ICD10 Worksheet Patient Problems: Problems Problem Status Onset Chronic pain Acute Dehydration Acute Vomiting Acute Abdominal pain Acute Ventral hernia Acute
--- NOTE | 2017-05-05 15:42 | ASMTCMCOM ---
CM Note CM Note Notes: Pt admitted w/abd pain and N/V, had recent abd hernia repair this past February. Currently has NGT. No plans for surgery per MD note. Lives at home w/. DC needs not clear at this time. CM will follow. Date Signed: 05/05/2017 03:41 PM Electronically Signed By:Gauri Lucero RN
[2017-05-05] MEDS ORDERED: chlordiazePOXIDE 25 MG CAP PO PRN (16:52)
[2017-05-05] MEDS: CEPACOL LOZENGE PO PRN (19:03)
[2017-05-05] MEDS: ENOXAPARIN 40 MG/0.4 ML SYR SC SCH (21:40)
[2017-05-05] MEDS: PATCH REMOVAL 1 EA PATCH TD SCH (21:59)
[2017-05-06] MEDS: 1/2 NS 1,000 ML IV SCH ×2 (01:37→12:17)
[2017-05-06] MEDS: HYDROmorphONE/DILAUDID 2 MG/ML INJ IVP PRN ×3 (01:43→23:42)
[2017-05-06] MEDS: ONDANSETRON 4 MG/2 ML VIAL IVP SCH ×3 (01:54→10:04)
[2017-05-06] MEDS: oxyCODONE IR 15 MG TAB PO SCH ×6 (02:35→21:49)
[2017-05-06] MEDS: ZOLPIDEM TARTRATE 5 MG TAB PO PRN (02:36)
[2017-05-06] MEDS: METOCLOPRAMIDE 5 MG TAB PO SCH ×4 (05:52→21:49)
[2017-05-06] MEDS: ACETAMINOPHEN 325 MG TAB PO PRN (05:58)
[2017-05-06] MEDS: ENOXAPARIN 40 MG/0.4 ML SYR SC SCH ×2 (09:58→21:49)
[2017-05-06] MEDS: FAMOTIDINE 20 MG/NACL 50 ML IV SCH ×2 (09:59→21:49)
[2017-05-06] MEDS: LIDOCAINE 4%/MENTHOL 1% PATCH TD SCH (10:01)
[2017-05-06] MEDS: FOLIC ACID 1 MG TAB PO SCH (10:03)
[2017-05-06] MEDS: MULTIVITAMINS 1 EACH TAB PO SCH (10:03)
[2017-05-06] MEDS: CEPACOL LOZENGE PO PRN ×2 (10:04→16:29)
[2017-05-06] MEDS: THIAMINE HCL 500 MG in NS 500 ML IV SCH (10:05)
--- NOTE | 2017-05-06 13:11 | HOSPPROG ---
Hospitalist Progress Note Assessment/Plan: DIAGNOSES: -left upper quadrant abdominal pain with nausea vomiting present for 1 month * No conclusive diagnosis as to the cause at this time despite multiple studies here and elsewhere over the past month * Nasogastric suction has not helped and without any obvious gastric distension on her x-ray now or her other outpatient imaging studies over the last 2-4 weeks and doubt very much that this is gastric outlet obstruction or gastric motility issue; does have history of banded gastroplasty 20 years ago * No evidence of obstruction of the bowel on any of her studies * I actually wonder about a hernia given the appearance of her most recent CT scan I will review this with Dr. Copeland * I would also wonder if there could be some abnormality where she had her banded gastroplasty 20 years ago, but in that case would expect signs of obstruction * No current evidence of any kind of infection or inflammatory process; no evidence of splenic abnormality on CT scan -acute worsening of COMPLEX REGIONAL PAIN SYNDROME; new symptom onset today * Likely brought on by her having stopped gabapentin due to her abdominal pain, with no improvement in her abdominal pain * Will need to resume gabapentin at this time -hypernatremia and low bicarbonate levels * Likely due to nasogastric fluid removal -hypertension * Not well controlled here so far -alcohol abuse * The patient is given story at the time of her admission regarding her coming to not be drinking alcohol is not at all believable * Concern that she has an ongoing alcohol problem at home, will need to watch closely question if her current high blood pressures could be related to the beginnings of withdrawal at this time PLANS: -review CT scans with Dr. Copeland -would recommend discontinuing NG suction as this does not seem to be helping -GI consultation -watch closely for any signs of alcohol withdrawal at this time -resume her gabapentin for or complex regional pain syndrome at this time SUBJECTIVE: Still with same left upper quadrant pain and still noticing bulging at the left upper quadrant. She does tell me that all of her abdominal pain over the past month has been in the left upper quadrant. When the pain is at its worst the bulging area in the left upper quadrant becomes hardened though she says it is softer today. Still with some nausea today, but no emesis. No fever symptoms. She notices no improvement with approximately 30 hr of nasogastric suctioning. Last bowel movement 2 days ago OBJECTIVE Vitals reviewed: Some hypertension otherwise stable without fever Bilingual Branch Manager, my review: Exam: alert oriented appears uncomfortable, mildly anxious, no tremor or confusion skin warm dry color ok, no jaundice resps not labored lungs clear BSs heart regular abd soft with bowel sounds present; there is a prominence in contour of her abdominal exam with a bulging of the left upper quadrant which she says is less than it is at certain other times. This area is soft and mildly tender without guarding or rebound, crepitus, palpable mass, discoloration or change in temperature. limbs warm, no edema iv site ok I reviewed from her outpatient records the images from a CT scan done April 30. This is unremarkable for any abnormality of the stomach bowel peritoneal fat structures, spleen kidneys or liver or pancreas. There are no abscesses and there is no ascites. There is no distention of any hollow organ. Visible is her old wire lead from spine stimulator in the right low anterior abdominal wall wrapping around in down to her low lumbar spine area. No fluid or other abnormalities around this. There is 1 focus of what looks like some luminal contrast in the low right abdomen. Nothing in the left upper abdominal area. I reviewed the images from her admission abdominal x-rays here in that is quite unremarkable. Again noted is the presence of the old stimulator wire Laboratory data: She has a slightly low serum bicarbonate level and her sodium is a little bit high, otherwise unremarkable CBCs and chemistries here so far Objective: Vital Signs Temp Pulse Resp BP Pulse Ox 37.2 C 82 16 148/87 H 89 L 05/06/17 11:20 05/06/17 11:20 05/06/17 11:20 05/06/17 11:20 05/06/17 11:20 Laboratory Results 05/05/17 05:46 05/05/17 05:46 05/05/17 05/06/17 05/07/17 06:59 06:59 06:59 Intake Total 1999 3961 200 Output Total 1999 100 Balance 1999 1961 100 PT 14.4 SEC (12.0-15.0) 05/05/17 00:24 INR 1.10 (0.83-1.16) 05/05/17 00:24 - Time Spent With Patient Time Spent with Patient: greater than 35 minutes Time Spent with Patient: Greater than 35 minutes spent on this patients care, greater than 50% of time spent counseling, educating, and coordinating care regarding the above mentioned plan. ICD10 Worksheet Patient Problems: Problems Problem Status Onset Chronic pain Acute Dehydration Acute Vomiting Acute Abdominal pain Acute Ventral hernia Acute
--- NOTE | 2017-05-06 13:50 | SOAPPROG ---
[facility] Progress Note Assessment/Plan: Assessment: 57yo F with history of ventral hernia repair with mesh and post-op hematoma presenting for LUQ abd pain and distention with N/V. N/V pre-dated ventral hernia and did not resolve after LUQ mass has been there about a month. No hernia on CT Discussed case with Dr. Londono and reviewed images 1) We both agree that GI should see her 2) If nothing on endoscopy, can consider MRI to look at soft tissue vs diagnostic laparoscopy could be laparotomy depending on amount of scar tissue If on clears, I recommend removing NG S: Pain and distension improved. O: Sitting up in bed, resting comfortably with at bedside. Resp: No increased work of breathing. Abd: LUQ less tender and less distended than admission. Skin: Midline incision pulled to the left by distension. Otherwise well healed. Plan: 05/06/17 13:44 05/06/17 15:32 Objective: Vital Signs Temp Pulse Resp BP Pulse Ox 37.2 C 82 16 148/87 H 89 L 05/06/17 11:20 05/06/17 11:20 05/06/17 11:20 05/06/17 11:20 05/06/17 11:20 Laboratory Results 05/05/17 05:46 05/05/17 05:46 05/05/17 05/06/17 05/07/17 05:59 05:59 05:59 Intake Total 1999 3961 200 Output Total 1900 200 Balance 1999 2061 0 PT 14.4 SEC (12.0-15.0) 05/05/17 00:24 INR 1.10 (0.83-1.16) 05/05/17 00:24 ICD10 Worksheet Patient Problems: Problems Problem Status Onset Chronic pain Acute Dehydration Acute Vomiting Acute Abdominal pain Acute Ventral hernia Acute
[2017-05-06] MEDS: GABAPENTIN 300 MG CAP PO SCH ×2 (16:28→21:49)
[2017-05-06] MEDS: LORazepam 2 MG/ML INJ IVP PRN ×3 (19:47→21:58)
[2017-05-06] MEDS: PATCH REMOVAL 1 EA PATCH TD SCH (21:53)
[2017-05-07] MEDS: LORazepam 2 MG/ML INJ IVP PRN ×2 (00:08→11:25)
[2017-05-07] MEDS: CEPACOL LOZENGE PO PRN (00:15)
[2017-05-07] MEDS: ZOLPIDEM TARTRATE 5 MG TAB PO PRN ×2 (01:02→21:41)
[2017-05-07] MEDS: 1/2 NS 1,000 ML IV SCH ×2 (01:40→13:43)
[2017-05-07] MEDS: oxyCODONE IR 15 MG TAB PO SCH ×6 (02:08→21:34)
[2017-05-07] MEDS: METOCLOPRAMIDE 5 MG TAB PO SCH ×4 (06:13→21:34)
[2017-05-07 06:24] LABS: PLATELET COUNT 169 10^3/uL (150-400)
--- NOTE | 2017-05-07 08:37 | SOAPPROG ---
SOAP Progress Note Assessment/Plan: Assessment/Plan: 57yo F with history of ventral hernia repair with mesh and post-op hematoma presenting for LUQ abd pain and distention with N/V. N/V pre-dated ventral hernia and did not resolve after LUQ mass has been there about a month. No hernia on CT GI consult - if nothing on endoscopy, can consider MRI to look at soft tissue vs diagnostic laparoscopy could be laparotomy depending on amount of scar tissue NG removed, NPO for procedure S: O: Sitting up in bed, resting comfortable, NAD Resp: No increased work of breathing. Abd: LUQ less tender and less distended than admission. Skin: Midline incision no longer pulled to the left by distension. Well healed. 05/07/17 10:05 05/07/17 13:18 Objective: Vital Signs Temp Pulse Resp BP Pulse Ox 37.4 C 89 20 123/79 H 92 05/07/17 07:34 05/07/17 07:34 05/07/17 07:34 05/07/17 07:34 05/07/17 07:34 Laboratory Results 05/07/17 06:15 05/07/17 06:15 05/06/17 05/07/17 05/08/17 05:59 05:59 05:59 Intake Total 3961 1268 Output Total 1900 200 Balance 2061 1068 PT 14.4 SEC (12.0-15.0) 05/05/17 00:24 INR 1.10 (0.83-1.16) 05/05/17 00:24 ICD10 Worksheet Patient Problems: Problems Problem Status Onset Chronic pain Acute Dehydration Acute Vomiting Acute Abdominal pain Acute Ventral hernia Acute
--- NOTE | 2017-05-07 08:56 | PDANEPAE ---
ANE History of Present Illness EGD ANE Past Medical History - Cardiovascular History Hx Hypertension: No Hx Arrhythmias: No Hx Chest Pain: No Hx Coronary Artery / Peripheral Vascular Disease: No Hx CHF / Valvular Disease: No Hx Palpitations: No - Pulmonary History Hx COPD: No Hx Asthma/Reactive Airway Disease: No Hx Recent Upper Respiratory Infection: No Hx Oxygen in Use at Home: Yes Hx Sleep Apnea: No Pulmonary History Comment: POS HX SLEEP APNEA - HAD CORRECTIVE ENT SURG BUT STILL SNORES - Neurologic History Hx Cerebrovascular Accident: No Hx Seizures: No Hx Dementia: No - Endocrine History Hx Diabetes: No - Renal History Hx Renal Disorders: No - Liver History Hx Hepatic Disorders: Yes Hepatic History Comment: CHOLECYSTECTOMY - Neurological & Psychiatric Hx Hx Neurological and Psychiatric Disorders: Yes Neurological / Psychiatric History Comment: CHRONIC PAIN / DEPRESSION, anxiety - Cancer History Hx Cancer: No - Congenital Disorder History Hx Congenital Disorders: No - GI History Hx Gastrointestinal Disorders: Yes Gastrointestinal History Comment: ABD PAIN W/HERNIA & NAUSEA. DIFFICULTY KEEPING FOOD DOWN - Other Health History Other Health History: NEG - Chronic Pain History Chronic Pain: Yes (CHRONIC PAIN PT W/ NECK, L ARM, CRPS) - Surgical History Prior Surgeries: CHOLECYSTECTOMY. WRIST SURGERY L. ENT SURGERY FOR APNEA. GASTROPLASTY. PAIN PUMP ABD X3 SURG & REMOVED ANE Review of Systems Review of systems is: negative Review of Systems: ANE Patient History - Allergies Allergies/Adverse Reactions: Iodinated Contrast- Oral and IV Dye Allergy (Severe, Verified 05/04/17 21:21) Other-Enter Comments ketorolac tromethamine [From Toradol] Allergy (Severe, Verified 05/04/17 21:21) Hives sumatriptan succinate [From Imitrex] Allergy (Severe, Verified 05/04/17 21:21) Unknown codeine Allergy (Intermediate, Verified 05/04/17 21:21) Rash sumatriptan Allergy (Unknown, Verified 05/04/17 21:21) Unknown diphenhydramine [From Benadryl] Allergy (Verified 05/04/17 21:21) contrast dye Allergy (Severe, Uncoded 05/04/17 21:21) Anaphylaxis ketorolac tromethamine Allergy (Unknown, Uncoded 05/04/17 21:21) Hives sumatriptan succinate Allergy (Unknown, Uncoded 05/04/17 21:21) Unknown - Home Medications Home medications: home medication list seen and reviewed Home Medications: Aspirin [Aspirin 81mg (*)] 81 mg PO DAILY PRN 02/04/17 [Last Taken 04/30/17] Metoclopramide [Reglan 5 mg (*)] 5 mg PO QID 05/05/17 [Last Taken 05/04/17 18:00 ] Zolpidem Tartrate [Ambien 5MG (*)] 10 mg PO HS PRN 05/05/17 [Last Taken 05/03/17 ] fentaNYL [Duragesic 12 MCG Patch (*)] 12 mcg TD Q72H 05/05/17 [Last Taken ] fentaNYL [Duragesic 25 MCG Patch (*)] 25 mcg TD Q72H 05/05/17 [Last Taken ] oxyCODONE IR [Oxycodone Ir (*)] 15 mg PO Q4HRS 05/05/17 [Last Taken 05/04/17 21: 00] - NPO status NPO Status: no food or drink >8 hours - Smoking Hx Smoking Status: Never smoked - Alcohol Use Alcohol Use: Occasionally (Patient denies any daily or heavy alcohol intake.) - Family Anes Hx Family Hx Anesthesia Complications: NEG ANE Labs/Vital Signs - Labs Result Diagrams: 05/07/17 06:15 05/07/17 06:15 - Vital Signs Blood Pressure: 123/79 Heart Rate: 89 Respiratory Rate: 20 O2 Sat (%): 92 Height: 165.1 cm Weight: 128.2 kg ANE Physical Exam - Airway Neck exam: FROM Mallampati Score: Class 2 Mouth exam: normal dental/mouth exam - Pulmonary Pulmonary: no respiratory distress - Cardiovascular Cardiovascular: regular rate and rhythym - ASA Status ASA Status: III ANE Anesthesia Plan Total IV Anesthesia: Yes
[2017-05-07] MEDS ORDERED: LR 1,000 ML IV ONE (08:59)
[2017-05-07] MEDS ORDERED: PROPOFOL/EMULSION 500 MG/50 ML BOTTLE IV ONE (09:12)
[2017-05-07] MEDS ORDERED: LIDOCAINE 2% 100 MG/5 ML SYR ONE (09:13)
--- NOTE | 2017-05-07 09:45 | SOAPPROG ---
SOAP Progress Note Assessment/Plan: Assessment: Plan: 05/07/17 09:40 GI note S/p EGD/EUS. + gastric ulcers and gastritis. S/p biopsy. + polyps Biopsies also taken of sprue. Unsure if ulcers cause of pain due to clinical picture. However, recommend PPI BID. No evidence of chronic pancreatitis on EUS. See dictated EGD /EUS for further details. Low yield for colonoscopy and recommend to treat ulcers etc. Await results of stomach biopsies for H. pylori. Her pain is atypical for a GI source of pain. Can follow up in office in 1-[address] Jenkins if taking over call tonight. Please call her if needed. GI will sign off. Thank you for allowing me to participate in the care of your patient. Objective: Vital Signs Temp Pulse Resp BP Pulse Ox 37.4 C 89 20 123/79 H 92 05/07/17 08:55 05/07/17 09:09 05/07/17 09:09 05/07/17 09:09 05/07/17 09:09 Laboratory Results 05/07/17 06:15 05/07/17 06:15 05/06/17 05/07/17 05/08/17 05:59 05:59 05:59 Intake Total 3961 1268 Output Total 1900 200 Balance 2061 1068 PT 14.4 SEC (12.0-15.0) 05/05/17 00:24 INR 1.10 (0.83-1.16) 05/05/17 00:24 ICD10 Worksheet Patient Problems: Problems Problem Status Onset Chronic pain Acute Dehydration Acute Vomiting Acute Abdominal pain Acute Ventral hernia Acute
[2017-05-07] MEDS: MULTIVITAMINS 1 EACH TAB PO SCH (10:38)
--- NOTE | 2017-05-07 10:59 | PDMN ---
Medical Necessity Medical necessity: Change to IP, as of 05/06/17, per MD; los >2 mn for ongoing management of LUQ abdominal pain with N/V, acute worsening complex regional pain syndrome, hypernatremia, htn & possible alcohol withdrawal; admit for further workup/monitoring, GI consult, IV pain meds & IVFs; hx ventral hernia repair w/mesh & post-op hematoma, morbid obesity & htn; per progress note & order 05/06/17
[2017-05-07] MEDS: FAMOTIDINE 20 MG/NACL 50 ML IV SCH (11:07)
[2017-05-07] MEDS: LIDOCAINE 4%/MENTHOL 1% PATCH TD SCH (11:18)
[2017-05-07] MEDS: GABAPENTIN 300 MG CAP PO SCH ×3 (11:18→21:34)
[2017-05-07] MEDS: FOLIC ACID 1 MG TAB PO SCH (11:18)
[2017-05-07] MEDS: HYDROmorphONE/DILAUDID 2 MG/ML INJ IVP PRN ×3 (11:24→21:35)
[2017-05-07] MEDS: ENOXAPARIN 40 MG/0.4 ML SYR SC SCH ×2 (11:39→21:34)
--- NOTE | 2017-05-07 11:57 | GPN ---
[f rep st] PROCEDURE NOTE DATE OF PROCEDURE: 05/07/2017 PROCEDURE: Esophagogastroduodenoscopy with biopsy, endoscopic ultrasound. INDICATION: The patient is a 57-year-old female who presents for evaluation of left upper quadrant abdominal pain, nausea, as well as abnormal imaging. She presents for further evaluation. CONSENT: Risks, benefits, and alternatives of the procedure were discussed in great detail with the patient. Risk of infection, bleeding, perforation, and sedation were discussed. All questions answered. Informed consent obtained. MEDICATIONS: Propofol. Please see Anesthesia record for details. ESTIMATED BLOOD LOSS: Insignificant. ESOPHAGOGASTRODUODENOSCOPY EXAMINATION: The Olympus upper endoscope was inserted into the mouth and advanced to the esophagus. The proximal, mid, and distal esophagus were normal in appearance. The stomach was entered and there was a small gastric pouch consistent with a prior bariatric stapling procedure. In this "gastric pouch" there were 2 ulcers seen which were superficial and measured approximately 6 mm. The mucosa was erythematous in the pouch. Biopsies were taken to rule out H pylori. There was a small opening at the end of the pouch. The scope was then advanced through the opening and the rest of the stomach was visualized. It was normal in appearance and appeared mildly distended. Several diminutive gastric polyps were noted along the greater curvature and were biopsied. The duodenal bulb and second portion of the duodenum were normal in appearance. Biopsies were taken to rule out celiac sprue. ENDOSCOPIC ULTRASOUND EXAMINATION: The Olympus linear echoendoscope was inserted in the mouth and advanced to the second portion of the duodenum. The esophagus, stomach, and duodenum were visualized endosonographically. It was difficult to advance the echoendoscope past the gastric pouch which limited the examination. Mild blood was noted on passage of the scope past the gastric pouch and it was not attempted to pass the scope past pouch after the initial passage which limited the procedure. The pancreas was examined from the head to the tail where the spleen was seen. Hyperechoic foci was seen throughout the pancreatic parenchyma. No dilation of the main pancreatic duct noted. No dilated side branches noted. No pseudocyst or evidence of chronic pancreatitis was visualized. The bile duct was seen and was without stone, stricture or stenosis. No liver lesions were noted. No suspicious peripancreatic, perigastric or periportal nodes were appreciated. IMPRESSION: 1. Gastric ulcers. 2. Gastritis- biopsies taken. 3. Biopsies taken to rule out celiac sprue. 4. No evidence of chronic pancreatitis. 5. No other cause of pain seen on ultrasound examination. RECOMMENDATIONS: 1. Follow up on biopsy results. 2. PPI therapy twice a day. 3. Await biopsy results. 4. Can restart diet. /[id number]/MODL MTDD
--- NOTE | 2017-05-07 14:30 | ASMTCMCOM ---
CM Note CM Note Notes: Reviewed chart and met w/pt. Anticipate dc home w/no needs w/ when medically ready. CM available if any needs arise. Left voicemail w/pt rep regarding concern pt would like to discuss with her. Date Signed: 05/07/2017 02:30 PM Electronically Signed By:Gauri Lucero RN
--- NOTE | 2017-05-07 15:08 | GCON ---
[f rep st] CONSULTATION DATE OF CONSULTATION: 05/07/2017 REFERRING PHYSICIAN: Payam Londono MD REASON FOR CONSULTATION: Left upper quadrant abdominal pain. CHIEF COMPLAINT: Abdominal pain. HISTORY OF PRESENT ILLNESS: Ms. Mckeon is a 57-year-old female with a history of a ventral hernia repair with mesh with a postoperative hematoma, reflex sympathetic dystrophy, morbid obesity, chronic pain, hypertension, who presents to [facility] with complaints of left upper quadrant abdominal pain. Jeri has been complaining of a burning/distended sensation in the left upper quadrant since the beginning of March. This occurs on a daily basis and lasts multiple hours. She denies any alleviating factors to her pain. She believes a heating pad makes her pain worse. She denies any relationship to eating or to bowel movements. When the pain gets intense, she has significant nausea and does vomit. Three days prior to admission she had multiple episodes of vomiting. She denies any dysphagia, odynophagia, fevers, or chills. I am being asked by Dr. Payam Londono to evaluate Jeri in consultation regarding her left upper quadrant abdominal pain and nausea. PAST MEDICAL HISTORY: 1. Morbid obesity. 2. Hypertension. 3. Chronic pain syndrome. 4. Reflex sympathetic dystrophy. 5. Hypertension. PAST SURGICAL HISTORY: 1. Breast augmentation. 2. Abdominal hernia repair. 3. Lumpectomy. 4. Cholecystectomy. 5. Stomach bariatric surgery. ALLERGIES: Contrast, codeine, sumatriptan, MEDICATIONS: Aspirin, metoclopramide, zolpidem, fentanyl, oxycodone. FAMILY HISTORY: No history of colon cancer. SOCIAL HISTORY: No significant alcohol or tobacco use. REVIEW OF SYSTEMS: A 14-point comprehensive review of systems was asked. Pertinent positives and negatives per HPI. PHYSICAL EXAMINATION: VITALS: Blood pressure 123/79, heart rate 81, temperature 37.4, respiration 20. GENERAL: Awake, alert and oriented x3. No distress. HEENT: Anicteric, moist mucosa. NECK: No JVD. CARDIOVASCULAR: Regular rhythm. Positive S1, S2. No murmurs or gallops appreciated. LUNGS: Clear to auscultation bilaterally. No wheezes, rales or rhonchi. ABDOMEN: Soft, tender in the upper quadrants, midline abdominal scar. Positive bowel sounds. No guarding. No rebound. EXTREMITIES: No edema. NEUROLOGIC: 2 through 12 grossly intact. PSYCH: Normal affect. SKIN: No obvious rash. Nonicteric. MUSCULOSKELETAL: No joint Effusions. LYMPH: No lymphadenopathy. IMAGING: CT scan on 04/30/2017 with IV contrast: Decrease in anterior abdominal hematoma. Blood work: WBC 7.68, hemoglobin 13.2, hematocrit 41.2, platelets 169. INR 1.10. Sodium 141, potassium 4.1, chloride 107, bicarb 26, BUN 2, AST 21, ALT 31 , alkaline phosphatase 57. ASSESSMENT AND PLAN: 1. Abdominal pain- Left upper quadrant with bloating and nausea. Etiology? Has had recent ventral hernia repair with hematoma. CT scan shows no obvious cause. Pain is not related to eating or to bowel movements and unsure whether this is a gastrointestinal pain. Will recommend to proceed with upper endoscopy /endoscopic ultrasound to rule out peptic ulcer disease as well as any pancreatic issues. The risks, benefits, and alternatives of the procedure were discussed in great detail with the patient. The risk of infection, bleeding, perforation, and sedation were discussed. All questions answered. Informed consent was obtained. Due to her morbid obesity and chronic pain, she is at increased risk of sedation and will need anesthesiology support for the procedure. 2. Morbid obesity. . 3. Hypertension. 4. Chronic pain. Thank you very much for this consultation. /[id number]/MODL VINOD
--- NOTE | 2017-05-07 18:40 | HOSPPROG ---
Hospitalist Progress Note Assessment/Plan: DIAGNOSES: -left upper quadrant abdominal pain with nausea vomiting present for 1 month * No findings to explain her current symptoms on EGD done this morning with Dr. Yates * I still wonder if her pain might be from the entrapped peritoneal fat in the left upper quadrant, will review further with Dr. Copeland -acute worsening of COMPLEX REGIONAL PAIN SYNDROME * Likely brought on by her having stopped gabapentin due to her abdominal pain, with no improvement in her abdominal pain * Continue resumed gabapentin at this time -hypernatremia and low bicarbonate levels * Likely due to nasogastric fluid removal -hypertension * Better at this time -alcohol abuse * The patient's given story at the time of her admission regarding her not be drinking alcohol is not at all believable * No current signs of any alcohol withdrawal PLANS: -continue acid suppression -avoid nonsteroidal anti-inflammatories -review w Dr. Copeland, question if surgical approach to managing the bulging peritoneal fat in the left upper quadrant abdominal wall will potentially relieve her pain -may eat at this time until surgery planned if it is -continue gabapentin for or complex regional pain syndrome at this time SUBJECTIVE: No change in her left upper quadrant bulging or pain at this time Not nearly so nauseous and no vomiting No fevers OBJECTIVE Vitals reviewed: Some hypertension otherwise stable without fever Track Man, my review: Exam: alert oriented appears uncomfortable, mildly anxious, no tremor or confusion skin warm dry color ok, no jaundice resps not labored lungs clear BSs heart regular abd soft with bowel sounds present; there is a prominence in contour of her abdominal exam with a bulging of the left upper quadrant which she says is less than it is at certain other times. This area is soft and mildly tender without guarding or rebound, crepitus, palpable mass, discoloration or change in temperature. limbs warm, no edema iv site ok Laboratory data: Unremarkable CBC and chemistry panels today Objective: Vital Signs Temp Pulse Resp BP Pulse Ox 37.3 C 83 20 145/79 H 94 05/07/17 15:39 05/07/17 15:39 05/07/17 15:39 05/07/17 15:39 05/07/17 15:39 Laboratory Results 05/07/17 06:15 05/07/17 06:15 05/06/17 05/07/17 05/08/17 06:59 06:59 06:59 Intake Total 400 830 Balance 400 830 PT 14.4 SEC (12.0-15.0) 05/05/17 00:24 INR 1.10 (0.83-1.16) 05/05/17 00:24 ICD10 Worksheet Patient Problems: Problems Problem Status Onset Chronic pain Acute Dehydration Acute Vomiting Acute Abdominal pain Acute Ventral hernia Acute
[2017-05-07] MEDS: PANTOPRAZOLE SODIUM 40 MG VIAL IVP SCH (21:42)
[2017-05-07] MEDS: PATCH REMOVAL 1 EA PATCH TD SCH (21:42)
[2017-05-08] MEDS ORDERED: THIAMINE HCL 100 MG TAB PO SCH (01:13)
[2017-05-08] MEDS: oxyCODONE IR 15 MG TAB PO SCH ×6 (02:31→21:05)
[2017-05-08] MEDS: ACETAMINOPHEN 325 MG TAB PO PRN (03:48)
[2017-05-08] MEDS: METOCLOPRAMIDE 5 MG TAB PO SCH ×4 (05:49→21:04)
--- NOTE | 2017-05-08 08:41 | SOAPPROG ---
NANCY Progress Note Assessment/Plan: Assessment/Plan: 57-year-old female status post ventral hernia repair, persistent left upper quadrant mass, gastritis I reviewed her EGD findings with her today, I do feel as though the gastritis and chronic ulcers can be causing some her symptoms. The anterior abdominal wall mass persists, is soft, likely fatty. I did discuss with her that I feel that operating on this would more than likely not fix her symptoms and I feel that we owe at least chance to see how she does now on PPI treatment. I have advanced her diet to regular and encouraged her to wean off IV narcotics. Not planning any current surgical interventions at this time 05/08/17 08:39 Subjective: Feels better today Objective: Vital Signs Temp Pulse Resp BP Pulse Ox 37.0 C 73 16 114/74 94 05/08/17 08:00 05/08/17 08:00 05/08/17 08:00 05/08/17 08:00 05/08/17 08:00 Laboratory Results 05/07/17 06:15 05/07/17 06:15 05/07/17 05/08/17 05/09/17 05:59 05:59 05:59 Intake Total 400 2532 Balance 400 2532 PT 14.4 SEC (12.0-15.0) 05/05/17 00:24 INR 1.10 (0.83-1.16) 05/05/17 00:24 ICD10 Worksheet Patient Problems: Problems Problem Status Onset Chronic pain Acute Dehydration Acute Vomiting Acute Abdominal pain Acute Ventral hernia Acute
[2017-05-08] MEDS: ENOXAPARIN 40 MG/0.4 ML SYR SC SCH ×2 (09:38→21:06)
[2017-05-08] MEDS: GABAPENTIN 300 MG CAP PO SCH ×3 (09:38→21:04)
[2017-05-08] MEDS: fentaNYL 25 MCG PATCH TD SCH (09:38)
[2017-05-08] MEDS: fentaNYL 12 MCG PATCH TD SCH (09:39)
[2017-05-08] MEDS: MULTIVITAMINS 1 EACH TAB PO SCH (09:39)
[2017-05-08] MEDS: FOLIC ACID 1 MG TAB PO SCH (09:40)
[2017-05-08] MEDS: LIDOCAINE 4%/MENTHOL 1% PATCH TD SCH (09:40)
[2017-05-08] MEDS: PANTOPRAZOLE SODIUM 40 MG VIAL IVP SCH (09:45)
--- NOTE | 2017-05-08 19:34 | HOSPPROG ---
Hospitalist Progress Note Assessment/Plan: DIAGNOSES: -left upper quadrant abdominal pain with nausea vomiting present for 1 month * No findings to explain her current symptoms on EGD done this morning with Dr. Yates * I still wonder if her pain might be from the entrapped peritoneal fat in the left upper quadrant, will review further with Dr. Copeland -acute worsening of COMPLEX REGIONAL PAIN SYNDROME * Likely brought on by her having stopped gabapentin due to her abdominal pain, with no improvement in her abdominal pain * Continue resumed gabapentin at this time -hypernatremia and low bicarbonate levels * Likely due to nasogastric fluid removal -hypertension * Better at this time -alcohol abuse * The patient's given story at the time of her admission regarding her not be drinking alcohol is not at all believable * No current signs of any alcohol withdrawal PLANS: -continue acid suppression -avoid nonsteroidal anti-inflammatories -continue diet as tolerated at this time until surgery planned if it is -continue gabapentin for or complex regional pain syndrome at this time -will continue to review with surgery; if her symptoms do not resolve with acid suppression will need to consider other causes, potentially the defect in abdominal wall or otherwise SUBJECTIVE: Still having some pain but eating okay without nausea or vomiting Normal bowel function No fever symptoms OBJECTIVE Vitals reviewed: Some hypertension otherwise stable without fever [employer], my review: Exam: alert oriented appears uncomfortable, mildly anxious, no tremor or confusion skin warm dry color ok, no jaundice resps not labored lungs clear BSs heart regular abd soft with bowel sounds present; no change in the fatty prominence at the left upper quadrant of the abdomen, puffer tender in that area limbs warm, no edema iv site ok Objective: Vital Signs Temp Pulse Resp BP Pulse Ox 37.2 C 75 16 120/80 93 05/08/17 15:34 05/08/17 15:34 05/08/17 15:34 05/08/17 15:34 05/08/17 15:34 Laboratory Results 05/07/17 06:15 05/07/17 06:15 05/07/17 05/08/17 05/09/17 06:59 06:59 06:59 Intake Total 400 2532 822 Output Total 2188 Balance 400 2532 -1366 PT 14.4 SEC (12.0-15.0) 05/05/17 00:24 INR 1.10 (0.83-1.16) 05/05/17 00:24 ICD10 Worksheet Patient Problems: Problems Problem Status Onset Chronic pain Acute Dehydration Acute Vomiting Acute Abdominal pain Acute Ventral hernia Acute
[2017-05-08] MEDS: PANTOPRAZOLE SODIUM 40 MG TAB PO SCH (21:05)
[2017-05-08] MEDS: PATCH REMOVAL 1 EA PATCH TD SCH (21:09)
[2017-05-08] MEDS: ZOLPIDEM TARTRATE 5 MG TAB PO PRN (22:50)
[2017-05-09] MEDS: oxyCODONE IR 15 MG TAB PO SCH ×6 (01:24→21:18)
[2017-05-09] MEDS: METOCLOPRAMIDE 5 MG TAB PO SCH ×4 (05:34→21:18)
[2017-05-09] MEDS: GABAPENTIN 300 MG CAP PO SCH ×3 (09:41→21:18)
[2017-05-09] MEDS: FOLIC ACID 1 MG TAB PO SCH (09:41)
[2017-05-09] MEDS: LIDOCAINE 4%/MENTHOL 1% PATCH TD SCH (09:42)
[2017-05-09] MEDS: MULTIVITAMINS 1 EACH TAB PO SCH (09:42)
[2017-05-09] MEDS: ENOXAPARIN 40 MG/0.4 ML SYR SC SCH ×2 (09:42→21:18)
[2017-05-09] MEDS: PANTOPRAZOLE SODIUM 40 MG TAB PO SCH ×2 (09:42→21:18)
--- NOTE | 2017-05-09 14:50 | ASMTCMCOM ---
CM Note CM Note Notes: Patient admitted via ED for shortness of breath/reactive airway exacerbation. Has a hx of PE and on Warfarin, INR 1.7 on admission. Patient being treated for tongue cancer which is being followed by [facility]. Discharge needs to be determined, likely independent. CM available to follow for discharge needs. Date Signed: 05/09/2017 02:49 PM Electronically Signed By:Sisi Vick
--- NOTE | 2017-05-09 15:31 | SOAPPROG ---
NANCY Progress Note Assessment/Plan: Assessment/Plan: 57-year-old female status post ventral hernia repair, persistent left upper quadrant mass, gastritis still c/o pain in LUQ which she describes as "burning" and points directly at soft tissue mass which appears superficial. She ate yesterday and tolerated it without issues, but pain hasnt changed at all. Planning abdominal MR today to get better idea of what the mass is and where exactly its located. She has communicated with her nurse both yesterday and today that she wants surgery, but hasnt been quite as direct with me. 05/08/17 08:39 05/09/17 15:29 Subjective: L sided abdominal pain persists Objective: Vital Signs Temp Pulse Resp BP Pulse Ox 37.4 C 84 20 152/97 H 95 05/09/17 15:19 05/09/17 15:19 05/09/17 15:19 05/09/17 15:19 05/09/17 15:19 Laboratory Results 05/07/17 06:15 05/07/17 06:15 05/08/17 05/09/17 05/10/17 05:59 05:59 05:59 Intake Total 2532 1572 Output Total 2058 1700 Balance 2532 -2216 -1700 PT 14.4 SEC (12.0-15.0) 05/05/17 00:24 INR 1.10 (0.83-1.16) 05/05/17 00:24 ICD10 Worksheet Patient Problems: Problems Problem Status Onset Chronic pain Acute Dehydration Acute Vomiting Acute Abdominal pain Acute Ventral hernia Acute
--- NOTE | 2017-05-09 15:54 | HOSPPROG ---
Hospitalist Progress Note Assessment/Plan: DIAGNOSES: -left upper quadrant abdominal pain with nausea vomiting present for 1 month * 2 very small ulcers noted on EGD seem unlikely to cause this much trouble, and she has not responded to now 5 weeks of proton pump inhibitors * No improvement with 2 days of nasogastric suctioning and NPO * I still wonder if her pain might be from the entrapped peritoneal fat in the left upper quadrant, reviewed with Dr. Copeland -acute worsening of COMPLEX REGIONAL PAIN SYNDROME in left arm and hand * Likely brought on by her having stopped gabapentin due to her abdominal pain, (with no improvement in her abdominal pain) * gabapentin resumed at this time with improvement in her arm symptoms -hypernatremia and low bicarbonate levels * Likely due to nasogastric fluid removal which was used for her presenting symptoms; resolved now with NG tube out -hypertension * Better at this time -alcohol abuse * The patient's given story at the time of her admission regarding her not drinking alcohol is not at all believable * No current signs of any alcohol withdrawal PLANS: -continue acid suppression with proton pump inhibitor -avoid nonsteroidal anti-inflammatories -continue diet as tolerated at this time until surgery planned if it is -continue gabapentin for or complex regional pain syndrome at this time -will continue to review with surgery; if her symptoms do not resolve with acid suppression will need to consider other causes, potentially the defect in abdominal wall or otherwise -will recheck chemistries to ensure stability as she had earlier electrolyte abnormalities and acidosis SUBJECTIVE: Did well with eating yesterday without pain but did have some nausea and burning sensation while attempting some solid food earlier today feels okay now OBJECTIVE Vitals reviewed: Some hypertension otherwise stable without fever Exam: alert oriented appears comfortable skin warm dry color ok, no jaundice resps not labored lungs clear BSs heart regular abd soft with bowel sounds present; no change in the fatty prominence at the left upper quadrant of the abdomen, hydrogenation still operator in that area limbs warm, no edema iv site ok Objective: Vital Signs Temp Pulse Resp BP Pulse Ox 37.4 C 84 20 152/97 H 95 05/09/17 15:19 05/09/17 15:19 05/09/17 15:19 05/09/17 15:19 05/09/17 15:19 Laboratory Results 05/07/17 06:15 05/07/17 06:15 05/08/17 05/09/17 05/10/17 06:59 06:59 06:59 Intake Total 8237 4579 Output Total 6545 1702 Balance 5012 -0081 -1704 PT 14.4 SEC (12.0-15.0) 05/05/17 00:24 INR 1.10 (0.83-1.16) 05/05/17 00:24 ICD10 Worksheet Patient Problems: Problems Problem Status Onset Chronic pain Acute Dehydration Acute Vomiting Acute Abdominal pain Acute Ventral hernia Acute
--- NOTE | 2017-05-09 15:55 | HOSPPROG ---
Hospitalist Progress Note Assessment/Plan: DIAGNOSES: -left upper quadrant abdominal pain with nausea vomiting present for 1 month * 2 very small ulcers noted on EGD seem unlikely to cause this much trouble, and she has not responded to now 5 weeks of proton pump inhibitors * No improvement with 2 days of nasogastric suctioning and NPO * I still wonder if her pain might be from the entrapped peritoneal fat in the left upper quadrant, reviewed with Dr. Copeland -acute worsening of COMPLEX REGIONAL PAIN SYNDROME in left arm and hand * Likely brought on by her having stopped gabapentin due to her abdominal pain, (with no improvement in her abdominal pain) * gabapentin resumed at this time with improvement in her arm symptoms -hypernatremia and low bicarbonate levels * Likely due to nasogastric fluid removal which was used for her presenting symptoms; resolved now with NG tube out -hypertension * Better at this time -alcohol abuse * The patient's given story at the time of her admission regarding her not drinking alcohol is not at all believable * No current signs of any alcohol withdrawal PLANS: -continue acid suppression with proton pump inhibitor -avoid nonsteroidal anti-inflammatories -continue diet as tolerated at this time until surgery planned if it is -MRI ordered of the abdomen today by Dr. Ana Laura bearden to review the possible peritoneal fat entrapment noted on CT -will continue to review with surgery; if her symptoms do not resolve with acid suppression will need to consider other causes, potentially the defect in abdominal wall or otherwise -will recheck chemistries to ensure stability as she had earlier electrolyte abnormalities and acidosis -continue gabapentin for or complex regional pain syndrome at this time SUBJECTIVE: Did well with eating yesterday without pain but did have some nausea and burning sensation while attempting some solid food earlier today feels okay now OBJECTIVE Vitals reviewed: Some hypertension otherwise stable without fever Exam: alert oriented appears comfortable skin warm dry color ok, no jaundice resps not labored lungs clear BSs heart regular abd soft with bowel sounds present; no change in the fatty prominence at the left upper quadrant of the abdomen, swift tender in that area limbs warm, no edema iv site ok Objective: Vital Signs Temp Pulse Resp BP Pulse Ox 37.4 C 84 20 152/97 H 95 05/09/17 15:19 05/09/17 15:19 05/09/17 15:19 05/09/17 15:19 05/09/17 15:19 Laboratory Results 05/07/17 06:15 05/07/17 06:15 05/08/17 05/09/17 05/10/17 06:59 06:59 06:59 Intake Total 2532 1572 Output Total 0885 1707 Balance 2532 -2216 -1700 PT 14.4 SEC (12.0-15.0) 05/05/17 00:24 INR 1.10 (0.83-1.16) 05/05/17 00:24 ICD10 Worksheet Patient Problems: Problems Problem Status Onset Chronic pain Acute Dehydration Acute Vomiting Acute Abdominal pain Acute Ventral hernia Acute
--- NOTE | 2017-05-09 17:24 | ASMTCMCOM ---
CM Note CM Note Notes: Please disregard prior note written by this CM, incorrectly entered. Date Signed: 05/09/2017 05:23 PM Electronically Signed By:iSsi Vick
[2017-05-09] MEDS: PATCH REMOVAL 1 EA PATCH TD SCH (23:26)
[2017-05-10] MEDS: ZOLPIDEM TARTRATE 5 MG TAB PO PRN (00:19)
[2017-05-10] MEDS: oxyCODONE IR 15 MG TAB PO SCH ×6 (01:34→21:28)
[2017-05-10] MEDS: METOCLOPRAMIDE 5 MG TAB PO SCH ×4 (05:49→21:28)
[2017-05-10 05:57] LABS: PLATELET COUNT 203 10^3/uL (150-400)
[2017-05-10] MEDS: FOLIC ACID 1 MG TAB PO SCH (09:48)
[2017-05-10] MEDS: LIDOCAINE 4%/MENTHOL 1% PATCH TD SCH (09:49)
[2017-05-10] MEDS: MULTIVITAMINS 1 EACH TAB PO SCH (09:49)
[2017-05-10] MEDS: ENOXAPARIN 40 MG/0.4 ML SYR SC SCH (09:50)
[2017-05-10] MEDS: GABAPENTIN 300 MG CAP PO SCH ×3 (09:51→21:28)
[2017-05-10] MEDS: PANTOPRAZOLE SODIUM 40 MG TAB PO SCH ×2 (09:51→21:28)
--- NOTE | 2017-05-10 12:29 | SOAPPROG ---
SOAP Progress Note Assessment/Plan: Assessment/Plan: 57yo F with history of ventral hernia repair with mesh and post-op hematoma presenting for LUQ abd pain and distention with N/V. N/V pre-dated ventral hernia and did not resolve after LUQ mass has been there about a month. No hernia on CT Abd MRI today to further define LUQ mass. Regular diet S: burning and "ripping" of mass/midline incision O: Sitting up in bed, resting comfortable, NAD Resp: No increased work of breathing. Abd: LUQ less tender and less distended than admission. Skin: Midline incision pulled to the left by distension. Incision well healed. Objective: Vital Signs Temp Pulse Resp BP Pulse Ox 37.1 C 76 18 158/80 H 96 05/10/17 12:00 05/10/17 12:00 05/10/17 12:00 05/10/17 12:00 05/10/17 12:00 Laboratory Results 05/10/17 05:28 05/10/17 05:28 05/09/17 05/10/17 05/11/17 05:59 05:59 05:59 Intake Total 1572 1180 Output Total 3788 3500 Balance -2216 -2320 PT 14.4 SEC (12.0-15.0) 05/05/17 00:24 INR 1.10 (0.83-1.16) 05/05/17 00:24 ICD10 Worksheet Patient Problems: Problems Problem Status Onset Chronic pain Acute Dehydration Acute Vomiting Acute Abdominal pain Acute Ventral hernia Acute
[2017-05-10] MEDS ORDERED: DIAZEPAM 5 MG TAB PO ONE (13:15)
[2017-05-10] MEDS ORDERED: GADOBUTROL 10 ML VIAL IVP ONE (13:44)
--- NOTE | 2017-05-10 15:07 | ASMTCMCOM ---
CM Note CM Note Notes: CM met with pt for dispo planning. Pt is anxious about her abdomen. Pt will need an MRI and is claustrophobic. Pt shows no signs of ETOH withdrawal, and is in fact pleasant and conversational. Discussed methods to breathing and calming as well has coping with her testing and situation. No current needs identified. CM available for d/c needs. Plan: Independent Date Signed: 05/10/2017 03:06 PM Electronically Signed By:SHARATH Long
--- NOTE | 2017-05-10 16:44 | HOSPPROG ---
Hospitalist Progress Note Assessment/Plan: Assessment: 57 yo F p/w acute LUQ pain Plan: # left upper quadrant abdominal pain with nausea vomiting. acute worsening, present x 1 month, patient and I reviewed pictures of progression, seems worse to gravity - new problem to this provider, further w/u indicated - suspect that this is abd wall/muscular thinning in setting of morbid obesity, which is exacerbated by positional changes, poor coping mechanisms for pain mgmt - after no improvement w/ 2 days of NGT suctioning and NPO status, she has undergone abd MRI today, results pending - d/w La Rizzo, gen surg provider, we agreed that further recs to patient regarding etiology will be reserved until after MRI read # peptic ulcers. small on EGD, unlikely cause of pain given focality, but may be contributing to her nausea/vomiting - cont PPI - cont supportive care for N/V # acute worsening of COMPLEX REGIONAL PAIN SYNDROME in left arm and hand - likely brought on by her having stopped gabapentin due to her abdominal pain, (with no improvement in her abdominal pain) - gabapentin resumed at this time with improvement in her arm symptoms # hypernatremia and acute metabolic acidosis. 2/2 poor PO intake of water, NGT suctioning, and resultant hypovolemia contributing to lactic acidosis - cont to monitor # chronic hypertension. stable # alcohol abuse. unclear if contributing, no e/o withdraw diet. as january, NPO in AM in case any surg recommended ppx. high risk, SCDs, hold pharm in AM code. full dispo. ADD uncertain, pending further w/u of above Subjective: ongoing discomfort LUQ, bulge, N/V today Objective: Vital Signs Temp Pulse Resp BP Pulse Ox 37.4 C 87 18 124/93 H 94 05/10/17 16:00 05/10/17 16:00 05/10/17 16:00 05/10/17 16:00 05/10/17 16:00 Laboratory Results 05/10/17 05:28 05/10/17 05:28 05/09/17 05/10/17 05/11/17 05:59 05:59 05:59 Intake Total 1572 1180 Output Total 3788 3500 Balance -2216 -2320 PT 14.4 SEC (12.0-15.0) 05/05/17 00:24 INR 1.10 (0.83-1.16) 05/05/17 00:24 - Physical Exam Constitutional: appears nourished, chronically ill appearing, obese, uncomfortable Cardiovascular: regular rate and rhythym, no murmur, rub, or gallop, edema ( trace bilat LE) Respiratory: no respiratory distress, no rales or rhonchi, clear to auscultation , No rhonchi Gastrointestinal: normoactive bowel sounds, tenderness (LUQ), distension (w/ notable bulge in LUQ), other (no hernia over midline incision), No guarding Skin: other (no erythema around midline incision, well healing) Neurologic: AAOx3, sensation intact bilaterally, No weakness Psychiatric: not encephalopathic, thought process linear, anxious, No agitated ICD10 Worksheet Patient Problems: Problems Problem Status Onset Ventral hernia Acute Abdominal pain Acute Vomiting Acute Dehydration Acute Chronic pain Acute
[2017-05-10] MEDS: PATCH REMOVAL 1 EA PATCH TD SCH (21:29)
[2017-05-11] MEDS: oxyCODONE IR 15 MG TAB PO SCH ×6 (02:36→21:55)
[2017-05-11] MEDS: METOCLOPRAMIDE 5 MG TAB PO SCH ×4 (05:43→21:57)
--- NOTE | 2017-05-11 08:49 | SOAPPROG ---
SOAP Progress Note Assessment/Plan: Assessment/Plan: 57yo F with history of ventral hernia repair with mesh and post-op hematoma presenting for LUQ abd pain and distention with N/V. N/V pre-dated ventral hernia and did not resolve after LUQ mass has been there about a month. No hernia on CT Abd MRI yesterday did not show soft tissue mass, no hernia. Looks like wide- based diastasis recti. No surgical intervention at this time. Consider referral to Dr. Severo Murillo at [facility] for second opinion. Regular diet Abdominal binder for comfort PT Appreciate hospitalists. Seen c Dr. Copeland. S: anxiety overnight. very frustrated with the care she's getting this hospital admission, has contact with patient rep. O: Sitting up in bed, resting comfortable, NAD Resp: No increased work of breathing. Abd: LUQ less tender and less distended Skin: Midline incision pulled to the left by distension, less than admission. Incision well healed. Objective: Vital Signs Temp Pulse Resp BP Pulse Ox 37.2 C 68 16 123/89 H 96 05/11/17 07:45 05/11/17 07:45 05/11/17 07:45 05/11/17 07:45 05/11/17 07:45 Laboratory Results 05/10/17 05:28 05/10/17 05:28 05/10/17 05/11/17 05/12/17 05:59 05:59 05:59 Intake Total 1180 680 Output Total 3500 2900 Balance -2320 -2220 PT 14.4 SEC (12.0-15.0) 05/05/17 00:24 INR 1.10 (0.83-1.16) 05/05/17 00:24 ICD10 Worksheet Patient Problems: Problems Problem Status Onset Chronic pain Acute Dehydration Acute Vomiting Acute Abdominal pain Acute Ventral hernia Acute
[2017-05-11] MEDS: ENOXAPARIN 40 MG/0.4 ML SYR SC SCH ×2 (09:22→21:56)
[2017-05-11] MEDS: fentaNYL 12 MCG PATCH TD SCH (09:23)
[2017-05-11] MEDS: GABAPENTIN 300 MG CAP PO SCH ×3 (09:23→21:56)
[2017-05-11] MEDS: PANTOPRAZOLE SODIUM 40 MG TAB PO SCH ×2 (09:23→21:57)
[2017-05-11] MEDS: fentaNYL 25 MCG PATCH TD SCH (09:24)
[2017-05-11] MEDS: MULTIVITAMINS 1 EACH TAB PO SCH (11:43)
[2017-05-11] MEDS: LIDOCAINE 4%/MENTHOL 1% PATCH TD SCH (11:43)
[2017-05-11] MEDS: FOLIC ACID 1 MG TAB PO SCH (11:43)
[2017-05-11] MEDS ORDERED: DICYCLOMINE 20 MG TAB PO PRN (11:47)
--- NOTE | 2017-05-11 21:31 | HOSPPROG ---
Hospitalist Progress Note Assessment/Plan: Assessment: 57 yo F p/w acute LUQ pain 2/2 diastasis and rectus muscle atrophy Plan: # left upper quadrant abdominal pain 2/2 diastasis and rectus muscle atrophy, 2/ 2 morbid obesity and recent midline hernia repair. - doubt that her N/V are 2/2 this issue, as they more likely functional bowel sx and there is no e/o incarceration or hernia on MRI - d/w La Rizzo, recommendation is for abd binder and rectus strengthening w / PT - counseled patient extensively that, although she believes the area is unsightly and she and is very anxious about it, it is not pathological and may improve w/ strengthening and weight loss, and the abd binder can be used supportively - Dr. Copeland will connect w/ [place] surgeon to get second opinion, and share w/ patient - no surgery recommended at this time, as it would likely cause more harm than benefit # suspected functional bowel, irritable bowel syndrome. patient's N/V/abd pain are likely functional, as she suffers from a chronic pain syndrome, has chronic abd sx, and has no significant structural underlying cause - counseled patient that supportive care w/ reglan for nausea and bentyl for pain are good first line therapy - cont ppi for small peptic ulcers and binder for muscle atrophy - recommend establishing outpt f/u w/ Dr. Clemente # peptic ulcers. small on EGD, unlikely cause of pain given focality, but may be contributing to the acute worsening - cont PPI - recommended advancing PO intake # acute worsening of COMPLEX REGIONAL PAIN SYNDROME in left arm and hand - likely brought on by her having stopped gabapentin due to her abdominal pain, (with no improvement in her abdominal pain) - gabapentin resumed at this time with improvement in her arm symptoms # hypernatremia and acute metabolic acidosis. 2/2 poor PO intake of water, NGT suctioning, and resultant hypovolemia contributing to lactic acidosis - cont to monitor # chronic hypertension. stable # alcohol abuse. unclear if contributing, no e/o withdraw # morbid obesity. BMI 40+ and increased risk for worsening morbidity in setting of diastasis # continuous opiate dependency. cont home Rx diet. as january, NPO in AM in case any surg recommended ppx. high risk, SCDs, lovenox 40 bid code. full dispo. ADD 05/12 Subjective: patient w/ anxiety about diagnosis, feels like she is getting lots of information, being careful w/ her diet Objective: Vital Signs Temp Pulse Resp BP Pulse Ox 36.9 C 81 20 132/81 H 95 05/11/17 15:12 05/11/17 15:12 05/11/17 15:12 05/11/17 15:12 05/11/17 15:12 Laboratory Results 05/10/17 05:28 05/10/17 05:28 05/10/17 05/11/17 05/12/17 05:59 05:59 05:59 Intake Total 1180 680 Output Total 3500 2900 600 Balance -2320 -2220 -600 PT 14.4 SEC (12.0-15.0) 05/05/17 00:24 INR 1.10 (0.83-1.16) 05/05/17 00:24 - Time Spent With Patient Time Spent with Patient: greater than 35 minutes Time Spent with Patient: Greater than 35 minutes spent on this patients care, greater than 50% of time spent counseling, educating, and coordinating care regarding the above mentioned plan. - Pending Discharge Pending Discharge Within 24 Hours: Yes Pending Discharge Date: 05/12/17 Pending Discharge Time: 11:00 - Physical Exam Constitutional: chronically ill appearing, obese, uncomfortable Gastrointestinal: other (LUQ abd bulge) Neurologic: AAOx3 Psychiatric: not encephalopathic, anxious, No agitated ICD10 Worksheet Patient Problems: Problems Problem Status Onset Chronic pain Acute Dehydration Acute Vomiting Acute Abdominal pain Acute Ventral hernia Acute
[2017-05-11] MEDS: PATCH REMOVAL 1 EA PATCH TD SCH (21:57)
[2017-05-11] MEDS ORDERED: fentaNYL 25 MCG PATCH TD ONE (22:15)
[2017-05-11] MEDS: ZOLPIDEM TARTRATE 5 MG TAB PO PRN (22:31)
[2017-05-12] MEDS: oxyCODONE IR 15 MG TAB PO SCH ×5 (03:57→17:47)
[2017-05-12] MEDS: METOCLOPRAMIDE 5 MG TAB PO SCH ×3 (06:41→16:38)
[2017-05-12] MEDS: ENOXAPARIN 40 MG/0.4 ML SYR SC SCH (09:12)
[2017-05-12] MEDS: LIDOCAINE 4%/MENTHOL 1% PATCH TD SCH (09:13)
[2017-05-12] MEDS: FOLIC ACID 1 MG TAB PO SCH (09:13)
[2017-05-12] MEDS: MULTIVITAMINS 1 EACH TAB PO SCH (09:14)
[2017-05-12] MEDS: PANTOPRAZOLE SODIUM 40 MG TAB PO SCH (09:14)
[2017-05-12] MEDS: GABAPENTIN 300 MG CAP PO SCH ×2 (09:14→16:38)
--- NOTE | 2017-05-12 10:49 | SOAPPROG ---
SOAP Progress Note Assessment/Plan: Assessment/Plan: 57yo F with history of ventral hernia repair with mesh and post-op hematoma presenting for LUQ abd pain and distention with N/V. N/V pre-dated ventral hernia and did not resolve after LUQ mass has been there about a month. No hernia on CT Abd MRI yesterday did not show soft tissue mass, no hernia. Looks like wide- based diastasis recti. Dr. Copeland discussed c Dr. Murillo, who agrees with non- operative management. Repeat abdominal MRI in 6 months. Abdominal binder and physical therapy Appreciate hospitalists. Discussed c Dr. Copeland. S: in very good spirits this am. Happy to be going home. No new complaints, pain only 3/10 O: Sitting up in bed, resting comfortable, NAD Resp: No increased work of breathing. Abd: +BS, LUQ mass stable. Midline incision pulled to the left by distension, less than admission. Incision well healed. Objective: Vital Signs Temp Pulse Resp BP Pulse Ox 36.7 C 63 12 132/95 H 95 05/12/17 07:44 05/12/17 07:44 05/12/17 07:44 05/12/17 07:44 05/12/17 07:44 Laboratory Results 05/10/17 05:28 05/10/17 05:28 05/11/17 05/12/17 05/13/17 05:59 05:59 05:59 Intake Total 680 Output Total 2900 600 Balance -2220 -600 PT 14.4 SEC (12.0-15.0) 05/05/17 00:24 INR 1.10 (0.83-1.16) 05/05/17 00:24 ICD10 Worksheet Patient Problems: Problems Problem Status Onset Chronic pain Acute Dehydration Acute Vomiting Acute Abdominal pain Acute Ventral hernia Acute
[2017-05-12 15:09] VITALS: BP 163/97; PULSE 80; RESP 20; TEMP 99; O2SAT 98
--- NOTE | 2017-05-12 17:15 | HOSPPROG ---
Hospitalist Progress Note Assessment/Plan: Assessment: 57 yo F p/w acute LUQ pain 2/2 diastasis and rectus muscle atrophy Plan: left upper quadrant abdominal pain 2/2 diastasis and rectus muscle atrophy, 2/2 morbid obesity and recent midline hernia repair. workup has revealed diastasis recti suspected functional bowel, irritable bowel syndrome. doing well peptic ulcers. small on EGD, unlikely cause of pain given focality, but may be contributing to the acute worsening cont PPI recommended advancing PO intake acute worsening of COMPLEX REGIONAL PAIN SYNDROME in left arm and hand - # hypernatremia and acute metabolic acidosis. 2/2 poor PO intake of water, NGT suctioning, and resultant hypovolemia contributing to lactic acidosis - cont to monitor # chronic hypertension. stable # alcohol abuse. unclear if contributing, no e/o withdraw # morbid obesity. BMI 40+ and increased risk for worsening morbidity in setting of diastasis # continuous opiate dependency. cont home Rx home today >30 minutes Subjective: very ready for dc Objective: Vital Signs Temp Pulse Resp BP Pulse Ox 37.2 C 80 20 163/97 H 98 05/12/17 15:08 05/12/17 15:08 05/12/17 15:08 05/12/17 15:08 05/12/17 15:08 Laboratory Results 05/10/17 05:28 05/10/17 05:28 05/11/17 05/12/17 05/13/17 05:59 05:59 05:59 Intake Total 680 Output Total 2900 600 Balance -2220 -600 PT 14.4 SEC (12.0-15.0) 05/05/17 00:24 INR 1.10 (0.83-1.16) 05/05/17 00:24 - Physical Exam Constitutional: no apparent distress, appears nourished Eyes: PERRL, anicteric sclera Ears, Nose, Mouth, Throat: moist mucous membranes, hearing normal Cardiovascular: regular rate and rhythym, no murmur, rub, or gallop Respiratory: no respiratory distress, no rales or rhonchi Gastrointestinal: normoactive bowel sounds, soft, non-tender abdomen Genitourinary: no bladder fullness Skin: warm Musculoskeletal: full muscle strength Neurologic: AAOx3 ICD10 Worksheet Patient Problems: Problems Problem Status Onset Chronic pain Acute Dehydration Acute Vomiting Acute Abdominal pain Acute Ventral hernia Acute
--- NOTE | 2017-05-12 18:24 | GDS ---
[f rep st] DISCHARGE SUMMARY DISCHARGE DIAGNOSES: 1. Abdominal wall hernia. 2. Rectus diastasis causing a swelling in her left abdomen. 3. Abdominal pain; showing small gastric ulcers. 4. Chronic pain. 5. Complex regional pain syndrome. Please see admission history and physical by Dr. Meagan Mixon. The patient presented with abdominal pain following a recent ventral hernia repair. She was seen by surgery and it was felt to have an op erative process. She also has hyponatremia. The patient has had abdominal pain and gastric ulcers w ithout bleeding. Started on a PPI. She did well, and she was ultimately discharged home. /[id number]/MODL
== END 2017-05-12 17:54 | disposition home or self-care (01) | DRG 558 ==
LOC: F3E 05-05 00:56 → OBSVTOIN 05-06 19:29
PROVIDERS: ADMIT Family Medicine; ATTEND Internal Medicine
PROC: 0D9670Z Drainage of Stomach with Drainage Device, Via Natural or Artificial Opening (ICD-10-PCS; principal; 2017-05-07 09:00)
PROC: 0DB98ZX Excision of Duodenum, Via Natural or Artificial Opening Endoscopic, Diagnostic (ICD-10-PCS; principal; 2017-05-07 09:00)
PROC: 0DB68ZX Excision of Stomach, Via Natural or Artificial Opening Endoscopic, Diagnostic (ICD-10-PCS; principal; 2017-05-07 09:00)
DX: M62.08 Separation of muscle (nontraumatic), other site (principal); M62.58 Muscle wasting and atrophy, not elsewhere classified, other site; K58.9 Irritable bowel syndrome, unspecified; K25.9 Gastric ulcer, unspecified as acute or chronic, without hemorrhage or perforation; K29.70 Gastritis, unspecified, without bleeding; I10 Essential (primary) hypertension; G89.29 Other chronic pain; F11.20 Opioid dependence, uncomplicated; G90.50 Complex regional pain syndrome I, unspecified; E66.2 Morbid (severe) obesity with alveolar hypoventilation; E86.0 Dehydration; E87.2 Acidosis; E87.0 Hyperosmolality and hypernatremia; F10.10 Alcohol abuse, uncomplicated; Z68.42 Body mass index [BMI] 45.0-49.9, adult; Z98.84 Bariatric surgery status
CPT/HCPCS: 96374; 97161-GP; A9585; G0378; G0480; J1170; J1650; J2001; J2060; J2405; J2704; J3411; Q9967

== ENCOUNTER 2017-07-30 09:37 | Inpatient (IN) | payer MEDICAID ==
--- NOTE | 2017-07-27 15:24 | GHP ---
[f rep st] PREOP HISTORY AND PHYSICAL DATE OF ADMISSION: 07/30/2017 PREOPERATIVE DIAGNOSIS: Left upper quadrant mass. HISTORY OF PRESENT ILLNESS: The patient is a 57-year-old woman who underwent ventral hernia repair of an extremely large ventral hernia back in February 2017. Her postop course was complicated by an enlarging left upper quadrant mass. She has had ultrasounds, CT scans, and abdominal MRI, which were all negative for hernia, abdominal wall, or intraabdominal masses. The MRI and CTs did note atrophy of the left-sided rectus muscle with broad diastasis. She continues to have worsening symptoms of pain and enlargement of the bulge. It is more bothersome when she is upright. She denies any change in bowel habits. PAST MEDICAL HISTORY: Chronic pain, complex regional pain syndrome, depression , anxiety, hypertension, obesity. PAST SURGICAL HISTORY: Ventral hernia repair, ear, nose, and throat procedure, wrist surgery. ALLERGIES: Codeine, Imitrex, IV contrast, Toradol. FAMILY HISTORY: Significant for hemochromatosis, lung cancer, and pancreatic cancer. SOCIAL HISTORY: She is and lives in [place]. 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 She denies tobacco, alcohol, or recreational drug use. REVIEW OF SYSTEMS: 10-point review of systems negative aside from HPI. PHYSICAL EXAMINATION: GENERAL: A pleasant, obese woman in no acute distress. HEENT: Normocephalic, atraumatic. No hearing deficits. Pupils equal and round. No scleral icterus. Mucous membranes moist. NECK: Trachea midline. RESPIRATORY: Clear to auscultation bilaterally. No increased work of breathing. CARDIOVASCULAR: Regular rate and rhythm. No peripheral edema. ABDOMEN: Soft, nondistended, nontender. Bowel sounds present. Left upper quadrant mass no longer reducible when lying supine. No overlying skin changes. MUSCULOSKELETAL: Normal gait, normal nails. SKIN: Previous surgical wounds well healed. PSYCH: Mood and affect normal. IMPRESSION AND PLAN: 57-year-old woman status post ventral hernia repair, now with recurrent ventral hernia/diastasis of the left upper quadrant. Consultation was made with Dr. Samy Santos, who recommended repair due to the mass enlarging and the severity of her symptoms. This will be an open procedure. The procedure will be performed by Dr. Copeland and Dr. Santos. Discussed risks of surgery, including, but not limited to, heart attack, stroke , blood clots, or . Discussed risks of infection, bleeding, damage to surrounding structures, need for additional procedures, or recurrence. She may continue to have pain. She understands the risks and would like to proceed. She will receive antibiotics on-call to the operating room. The patient was additionally seen by Dr. Dilcia Copeland who agrees with the above impression and plan. /[id number]/MODL MTDD
[~2017-07-30 09:37] MED LIST: BUPIVACAINE 0.5% 30 ML SDV ONE; ceFAZolin 2 GM/DEXTROSE 100 ML IV ONE; ceFAZolin 2 GM/SWFI 2 GM/20 ML SYR IVP ONE
--- NOTE | 2017-07-30 10:08 | PDANEPAE ---
ANE History of Present Illness 57 year old female for ventral hernia repair. ANE Past Medical History - Cardiovascular History Hx Hypertension: No Hx Arrhythmias: No Hx Chest Pain: No Hx Coronary Artery / Peripheral Vascular Disease: No Hx CHF / Valvular Disease: No Hx Palpitations: No - Pulmonary History Hx COPD: No Hx Asthma/Reactive Airway Disease: No Hx Recent Upper Respiratory Infection: No Hx Oxygen in Use at Home: Yes Hx Sleep Apnea: No Pulmonary History Comment: POS HX SLEEP APNEA - HAD CORRECTIVE ENT SURG BUT STILL SNORES - Neurologic History Hx Cerebrovascular Accident: No Hx Seizures: No Hx Dementia: No - Endocrine History Hx Diabetes: No Hypothyroid: No Hyperthyroid: No Obesity: moderate - Renal History Hx Renal Disorders: No - Liver History Hx Hepatic Disorders: Yes Hepatic History Comment: CHOLECYSTECTOMY - Neurological & Psychiatric Hx Hx Neurological and Psychiatric Disorders: Yes Neurological / Psychiatric History Comment: CHRONIC PAIN / DEPRESSION, anxiety - Cancer History Hx Cancer: No - Congenital Disorder History Hx Congenital Disorders: No - GI History Hx Gastrointestinal Disorders: Yes Gastrointestinal History Comment: ABD PAIN W/HERNIA & NAUSEA. DIFFICULTY KEEPING FOOD DOWN - Other Health History Other Health History: NEG - Chronic Pain History Chronic Pain: Yes (CHRONIC PAIN PT W/ NECK, L ARM, CRPS) - Surgical History Prior Surgeries: CHOLECYSTECTOMY. WRIST SURGERY L. ENT SURGERY FOR APNEA. GASTROPLASTY. PAIN PUMP ABD X3 SURG & REMOVED ANE Review of Systems Review of Systems: - Exercise capacity Exercise capacity: >=4 METS - Systems Gastrointestinal: Reports: abdominal pain ANE Patient History - Allergies Allergies/Adverse Reactions: Iodinated Contrast- Oral and IV Dye Allergy (Severe, Verified 06/30/17 15:39) Other-Enter Comments ketorolac tromethamine [From Toradol] Allergy (Severe, Verified 06/30/17 15:39) Hives sumatriptan succinate [From Imitrex] Allergy (Severe, Verified 06/30/17 15:39) Unknown codeine Allergy (Intermediate, Verified 06/30/17 15:39) Rash sumatriptan Allergy (Unknown, Verified 06/30/17 15:39) Unknown diphenhydramine [From Benadryl] Allergy (Verified 06/30/17 15:39) contrast dye Allergy (Severe, Uncoded 05/04/17 21:21) Anaphylaxis ketorolac tromethamine Allergy (Unknown, Uncoded 05/04/17 21:21) Hives sumatriptan succinate Allergy (Unknown, Uncoded 05/04/17 21:21) Unknown - Home Medications Home medications: home medication list seen and reviewed Home Medications: Metoclopramide [Reglan 5 mg (*)] 10 mg PO TIDMEAL 05/05/17 [Last Taken 07/29/17] morphINE SR [MS Contin/Oramorph SR 30 mg (*)] 30 mg PO BID 06/30/17 [Last Taken 07/29/17] Zolpidem Tartrate [Ambien 5MG (*)] 5 mg PO HS PRN 07/29/17 [Last Taken 07/29/17] oxyCODONE IR [Oxycodone Ir (*)] 20 mg PO QID 07/29/17 [Last Taken 07/30/17 05:30 ] - NPO status NPO Status: no food or drink >8 hours - Anes Hx Anes Hx: no prior problems - Smoking Hx Smoking Status: Never smoked Marijuana use: Yes - Alcohol Use Alcohol Use: None - Family Anes Hx Family Anes Hx: neg - N/A Family Hx Anesthesia Complications: NEG ANE Labs/Vital Signs - Vital Signs Vital Signs: reviewed preoperatively; see RN documention for details ANE Physical Exam - Airway Neck exam: FROM, increased neck circumference, short neck Mallampati Score: Class 3 Mouth exam: normal dental/mouth exam, poor dentition - Pulmonary Pulmonary: no respiratory distress - Cardiovascular Cardiovascular: regular rate and rhythym - ASA Status ASA Status: III ANE Anesthesia Plan Anesthesia Plan: general endotracheal anesthesia Total IV Anesthesia: No
[2017-07-30] MEDS ORDERED: MIDAZOLAM 2 MG/2 ML VIAL ONE (10:42)
[2017-07-30] MEDS ORDERED: ceFAZolin 2 GM/DEXTROSE 100 ML IV ONE (10:45)
[2017-07-30] MEDS ORDERED: PROPOFOL 200 MG/20 ML VIAL ONE (10:56)
[2017-07-30] MEDS ORDERED: fentaNYL 100 MCG/2 ML INJ ONE ×6 (10:56→14:30)
[2017-07-30] MEDS ORDERED: ROCURONIUM 50 MG/5 ML VIAL ONE ×2 (11:01→11:42)
[2017-07-30] MEDS ORDERED: LIDOCAINE 2% 5 ML SDV ONE (11:01)
[2017-07-30] MEDS ORDERED: KETAMINE 200 MG/20 ML VIAL ONE (11:02)
[2017-07-30] MEDS ORDERED: MIDAZOLAM 2 MG/2 ML VIAL IVP ONE (11:27)
[2017-07-30] MEDS ORDERED: ONDANSETRON 4 MG/2 ML VIAL ONE (11:42)
[2017-07-30] MEDS ORDERED: DEXAMETHASONE 4 MG/ML VIAL ONE (11:42)
[2017-07-30] MEDS ORDERED: HYDROmorphONE/DILAUDID 2 MG/ML INJ ONE ×2 (12:15→14:00)
[2017-07-30] MEDS ORDERED: ONDANSETRON 4 MG/2 ML VIAL IVP PRN (12:20)
[2017-07-30] MEDS ORDERED: PHENYLEPHRINE HCL 100 MCG/ML SYR IVP PRN (12:20)
[2017-07-30] MEDS ORDERED: DIAZEPAM 5 MG/ML 1 ML SYR IVP PRN (12:20)
[2017-07-30] MEDS ORDERED: LR 500 ML IV PRN (12:20)
[2017-07-30] MEDS ORDERED: NALOXONE HCL 0.4 MG/ML INJ IVP PRN ×2 (12:20→13:30)
[2017-07-30] MEDS ORDERED: ALTEPLASE 2 MG VIAL IVP PRN (13:26)
--- NOTE | 2017-07-30 13:26 | POSTOPPROG ---
Post Op Note Date of Operation: 07/30/17 Surgeon: Samy Santos Road Maker: michelle Anesthesiologist: rupinder Anesthesia: GET(General Endotracheal) Pre-op Diagnosis: ventral hernia Post-op Diagnosis: same Indication: 57 yo s/p hernia repair with large bulge LUQ Procedure: Open ventral hernia repair with stratice perforated Findings: large defect Inf/Abcess present in the surg proc area at time of surgery?: No Depth: Superfical (Skin SQ) EBL: Minimal Specimen(s): none
[2017-07-30] MEDS ORDERED: LORazepam 2 MG/ML INJ IVP PRN (13:30)
[2017-07-30] MEDS ORDERED: PHARMACY PAIN CONSULT 1 EA MISC SCH (13:45)
[2017-07-30] MEDS: fentaNYL 100 MCG/2 ML INJ IVP PRN ×2 (13:57→14:30)
[2017-07-30] MEDS: HYDROmorphONE/DILAUDID 2 MG/ML INJ IVP PRN ×5 (14:03→14:58)
--- NOTE | 2017-07-30 14:24 | GOP ---
[f rep st] OPERATIVE REPORT DATE OF OPERATION: 07/30/2017 SURGEON: Samy Santos MD CARD DOFFER: optometrist assistant: Dilcia Copeland MD. ANESTHESIA: General endotracheal. PREOPERATIVE DIAGNOSIS: Ventral hernia. POSTOPERATIVE DIAGNOSIS: Ventral hernia. PROCEDURE PERFORMED: FINDINGS: Left lateral upper abdominal weakening and hernia sac measuring approximately 25 cm x 35 c m. SPECIMENS: None. ESTIMATED BLOOD LOSS: 50. DESCRIPTION OF PROCEDURE: Ms. Mckeon was met in the preoperative area where the risks and benefits were discussed with her at length which include but not limited to infection, bleeding, hematoma, rec urrence of the hernia, injury to bowel, injury to major vessels and nerves, poor cosmesis, skin flap necrosis and further need for revision surgery. She was agreeable to this and therefore signed the o perative consent. She was then brought into the operating room where a time-out was performed where all in the room agreed upon the site and the procedure to be performed. She received 2 g of Ancef pe rioperatively prior to any incision being made for surgical prophylaxis. SCDs were placed for DVT pr ophylaxis and due to the length of the case we did not place a Angelo catheter. She was then prepped and draped in usual sterile fashion. We began the operation by making a midline incision taking out her old upper midline abdominal scar. This was taken out sharply and then care was taken to dissect through the subcutaneous tissue down to midline because we were unsure of the integrity of her abdomi nal wall. Once we did reach the upper area down to good fascia we then dissected laterally to define the actual hernia sac and down to good fascia. This was dissected with electrocautery and good hemo stasis was obtained. Once we were able to dissect all the way down up the subcostal margin down to t he lateral aspect of the hernia sac as well as below, this was cleared off in order for placement of Strattice mesh. This was then washed out with copious amounts of sterile saline and then a large 40 x 25 cm piece of Strattice that was perforated was placed over the hernia sac. This was then trimmed to allow for complete coverage and tightness over the existing hernia sac. This was then sutured in with 0 Vicryl sutures interrupted and a running 0 Prolene suture. Once we were happy with the stren gth and hold of the Strattice, two 15-Kenyan KRISTYN drains were placed. This was then sutured to the ski n with 2-0 silk sutures. We then excised some excess skin in order to bring the abdominal skin and s ubcutaneous tissue together tightly. This was then closed with 2-0 interrupted Vicryl suture and the n skin sunny to close the dermis and epidermis. Dressings were then placed with a silver Mepilex A g dressing. The drains were then charged in the operating room. The count was correct at the end of the case. There were no immediate complications. She was taken to PACU in good and stable conditio n. IV FLUIDS: 1000. COMPLICATIONS: None. /[id number]/MODL
[2017-07-30] MEDS ORDERED: DIAZEPAM 5 MG/ML 1 ML SYR ONE (14:39)
--- NOTE | 2017-07-30 15:10 | POSTANESTH ---
Post Anesthetic Evaluation Cardiovascular Status: Normal, Stable, Similar to Pre-Op Cond Respiratory Status: Normal, Stable, Similar to Pre-op Cond. Level of Consciousness/Mental Status: Can Participate in Eval, Alert and Oriented Pain Control: Adequate, Prn Tx Ordered Nausea/Vomiting Control: Adequate, Prn Tx Ordered Complications Possibly Related to Anesthesia: None Noted (Initially difficult to control pain, but well controlled before disposition to the floor.)
--- NOTE | 2017-07-30 15:16 | PDMN ---
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
--- NOTE | 2017-07-30 16:11 | PDRADPN ---
Radiology Procedure Note Date of Procedure: 07/30/17 Radiologist: Daren Cintron Anesthesia: Local (Specify) Pre-op Diagnosis: post op Post-op Diagnosis: same Indication: hard stick Procedure: RUE DL PICC Finding(s): ?chronically occluded basilic vein. patent brachial and cephalic. Via cephalic access a 5F DL PICC was placed at cavoatrial junction 41cm length. ok to use. Inf/Abcess present in the surg proc area at time of surgery?: No EBL: Minimal Complications: none
[2017-07-30] MEDS: oxyCODONE IR 5 MG TAB PO SCH ×2 (16:29→21:53)
[2017-07-30] MEDS: METOCLOPRAMIDE 10 MG TAB PO SCH (16:30)
[2017-07-30] MEDS ORDERED: MAGNESIUM HYDROXIDE 30 ML UDCUP PO PRN (16:52)
[2017-07-30] MEDS ORDERED: POLYETHYLENE GLYCOL 3350 17 GM PKT PO PRN (16:52)
[2017-07-30] MEDS ORDERED: LACTULOSE 20 GM/30 ML UDCUP PO PRN (16:52)
[2017-07-30] MEDS ORDERED: BISACODYL 10 MG SUPP PR PRN (16:52)
[2017-07-30] MEDS: SENNOSIDES/DOCUSATE SODIUM TAB PO SCH ×2 (18:27→21:54)
[2017-07-30] MEDS ORDERED: ceFAZolin 1 GM in NS 50 ML IV SCH (19:30)
[2017-07-30] MEDS: ACETAMINOPHEN 500 MG TAB PO SCH (21:52)
[2017-07-30] MEDS: morphINE SR 30 MG TAB PO SCH (21:54)
[2017-07-30] MEDS: ZOLPIDEM TARTRATE 5 MG TAB PO PRN (21:55)
[2017-07-31] MEDS: HYDROmorphONE/DILAUDID 6 MG/30 ML PCA IV PRN ×2 (02:54→15:50)
[2017-07-31] MEDS: oxyCODONE IR 5 MG TAB PO PRN (04:25)
[2017-07-31 05:45] LABS: PLATELET COUNT 239 10^3/uL (150-400)
[2017-07-31] MEDS: oxyCODONE IR 5 MG TAB PO SCH ×4 (06:17→20:17)
[2017-07-31] MEDS: METOCLOPRAMIDE 10 MG TAB PO SCH ×3 (08:23→17:47)
[2017-07-31] MEDS: ACETAMINOPHEN 500 MG TAB PO SCH ×3 (08:23→22:16)
[2017-07-31] MEDS: SENNOSIDES/DOCUSATE SODIUM TAB PO SCH ×2 (08:23→20:17)
[2017-07-31] MEDS: morphINE SR 30 MG TAB PO SCH ×2 (08:23→20:17)
--- NOTE | 2017-07-31 10:43 | SOAPPROG ---
SOAP Progress Note Assessment/Plan: Assessment: POD # 1 s/p ventral hernia repair with straticce Pain currently controlled on home regimen as well as Dilaudid IV and Tylenol. Had PICC placed due to poor IV access Wearing binder for support Patient ambulating with assistance to bathroom Neuro: Continue home medications and Dilaudid PRN Respiratory: wean O2, cough deep breath Cardio: monitor of hemodynamic instability. GI: awaiting for return of bowel function, on lite diet. Awaiting decreased output on KRISTYN drains. Will discharge with drains FEN - Light diet DVT prophylaxis: SCD's and Lovenox Dispo: Awaiting pain control, reurn of bowel function and ambulation without assist Continue OT/PT S: pain on right side of abdomen but feels better than she did last night. JPs with 90 and 135 out since surgery. O: sitting off side of bed about to ambulate, CTAB, no increased work of breathing , on oxygen, Regular rate KRISTYN drains with sanguineous discharge, dressing with scant stain PICC line intact without signs of infection Plan: 07/31/17 10:44 07/31/17 10:57 07/31/17 11:01 Objective: Vital Signs Temp Pulse Resp BP Pulse Ox 37.1 C 82 16 129/78 H 93 07/31/17 10:00 07/31/17 10:00 07/31/17 10:00 07/31/17 10:00 07/31/17 10:00 Laboratory Results 07/31/17 05:25 07/31/17 05:25 07/30/17 07/31/17 08/01/17 05:59 05:59 05:59 Intake Total 2502 Output Total 1575 Balance 927 ICD10 Worksheet Patient Problems: Problems Problem Status Onset Abdominal pain Acute Chronic pain Acute Dehydration Acute Ventral hernia Acute Vomiting Acute
--- NOTE | 2017-07-31 10:47 | ASMTCMCOM ---
CM Note CM Note Notes: Spoke w/RN, pt admitted for a ventral hernia surgery. Pt lives with in [place] and is independent with ADLs, although has chronic pain. PT/OT pending DC Plan: TBD Date Signed: 07/31/2017 10:46 AM Electronically Signed By:Olamide Ohara RN
[2017-07-31] MEDS: ENOXAPARIN 40 MG/0.4 ML SYR SC SCH (11:36)
[2017-08-01] MEDS: HYDROmorphONE/DILAUDID 6 MG/30 ML PCA IV PRN (03:50)
[2017-08-01] MEDS: oxyCODONE IR 5 MG TAB PO SCH ×4 (05:36→21:40)
[2017-08-01] MEDS: SENNOSIDES/DOCUSATE SODIUM TAB PO SCH ×2 (08:25→21:42)
[2017-08-01] MEDS: METOCLOPRAMIDE 10 MG TAB PO SCH ×3 (08:25→16:53)
[2017-08-01] MEDS: ACETAMINOPHEN 500 MG TAB PO SCH ×3 (08:25→21:43)
[2017-08-01] MEDS: ENOXAPARIN 40 MG/0.4 ML SYR SC SCH (08:25)
[2017-08-01] MEDS: morphINE SR 30 MG TAB PO SCH ×2 (08:25→21:35)
--- NOTE | 2017-08-01 08:41 | SOAPPROG ---
SOAP Progress Note Assessment/Plan: Assessment: POD # 2 s/p ventral hernia repair with straticce Pain currently controlled on home regimen as well as Dilaudid IV and Tylenol. More cramping today. Awaiting BM Had PICC placed due to poor IV access Wearing binder for support prn Neuro: Continue home medications and Dilaudid PRN Respiratory: cough deep breath Cardio: monitor for hemodynamic instability. GI: awaiting for return of bowel function, on lite diet. Awaiting decreased output on KRISTYN drains. Will discharge to home with drains. Can keep silver waterproof mepilex dressing x 1 week FEN - Light diet DVT prophylaxis: SCD's and Lovenox Dispo: Awaiting pain control, return of bowel function and ambulation without assist Continue OT/PT S: pain on left side of abdomen - cramping. Baker better yesterday. KRISTYN output decreased in past 24 hours O: Lying in bed CTAB, decreased breath sounds, no increased work of breathing Regular rate KRISTYN drains with thin sanguineous discharge, dressing with scant stain PICC line intact without signs of infection Plan: 07/31/17 10:44 07/31/17 10:57 07/31/17 11:01 08/01/17 08:39 Objective: Vital Signs Temp Pulse Resp BP Pulse Ox 37.0 C 83 16 141/74 H 92 08/01/17 07:46 08/01/17 07:46 08/01/17 07:46 08/01/17 07:46 08/01/17 07:46 Laboratory Results 07/31/17 05:25 07/31/17 05:25 07/31/17 08/01/17 08/02/17 05:59 05:59 05:59 Intake Total 2502 1705 750 Output Total 1575 1752 40 Balance 927 -61 947 ICD10 Worksheet Patient Problems: Problems Problem Status Onset Abdominal pain Acute Chronic pain Acute Dehydration Acute Ventral hernia Acute Vomiting Acute
[2017-08-01] MEDS ORDERED: HYDROmorphONE/DILAUDID 6 MG/30 ML PCA IV PRN (11:15)
--- NOTE | 2017-08-01 11:55 | ASMTCMCOM ---
CM Note CM Note Notes: Therapies have cleared pt to d/c independent without any needs. Pt still has 2 KRISTYN drains in. CM spoke w/ Lisa, RN regarding d/c POC. No other identified needs at this time. CM available for changes. Plan: Independent Date Signed: 08/01/2017 11:55 AM Electronically Signed By:SHARATH Long
[2017-08-01] MEDS: ZOLPIDEM TARTRATE 5 MG TAB PO PRN (21:42)
[2017-08-02] MEDS: oxyCODONE IR 5 MG TAB PO PRN (03:36)
[2017-08-02] MEDS: oxyCODONE IR 5 MG TAB PO SCH ×4 (05:31→22:05)
--- NOTE | 2017-08-02 07:41 | SOAPPROG ---
SOAP Progress Note Assessment/Plan: Assessment: POD # 3 s/p ventral hernia repair with straticce Pain currently controlled on home regimen as well as Dilaudid IV and Tylenol. BM yesterday. Had PICC placed due to poor IV access Wearing binder for support prn Neuro: Continue home medications and Dilaudid PRN Respiratory: cough deep breath Cardio: monitor for hemodynamic instability. GI: regular diet Awaiting decreased output on KRISTYN drains. Will discharge to home with drains. Can keep silver waterproof mepilex dressing x 1 week DVT prophylaxis: SCD's and Lovenox Dispo: Continuing to wean H[employer]ER. Much improved Continue OT/PT S: Pain at site of repair left abdomen, tender and burning - worse starting at 3 am O: Lying in bed CTAB, decreased breath sounds, no increased work of breathing Regular rate KRISTYN drains with thin sanguineous discharge, dressing with scant stain PICC line intact without signs of infection No signs of infection on abdomen. Soft, tender over site of repair Plan: 07/31/17 10:44 07/31/17 10:57 07/31/17 11:01 08/01/17 08:39 08/02/17 07:40 Objective: Vital Signs Temp Pulse Resp BP Pulse Ox 36.9 C 89 16 142/94 H 94 08/02/17 07:26 08/02/17 07:26 08/02/17 07:26 08/02/17 07:26 08/02/17 07:26 Laboratory Results 07/31/17 05:25 07/31/17 05:25 08/01/17 08/02/17 08/03/17 05:59 05:59 05:59 Intake Total 1705 750 Output Total 2922 1440 35 Balance -47 -690 -35 ICD10 Worksheet Patient Problems: Problems Problem Status Onset Abdominal pain Acute Chronic pain Acute Dehydration Acute Ventral hernia Acute Vomiting Acute
[2017-08-02] MEDS: METOCLOPRAMIDE 10 MG TAB PO SCH ×3 (08:10→17:35)
[2017-08-02] MEDS: SENNOSIDES/DOCUSATE SODIUM TAB PO SCH ×2 (08:10→21:43)
[2017-08-02] MEDS: ACETAMINOPHEN 500 MG TAB PO SCH ×3 (08:10→21:43)
[2017-08-02] MEDS: ENOXAPARIN 40 MG/0.4 ML SYR SC SCH ×2 (08:11→21:44)
[2017-08-02] MEDS: morphINE SR 30 MG TAB PO SCH ×2 (08:11→21:43)
[2017-08-02] MEDS: ZOLPIDEM TARTRATE 5 MG TAB PO PRN (22:05)
[2017-08-03] MEDS: oxyCODONE IR 5 MG TAB PO SCH ×4 (04:27→22:38)
[2017-08-03 08:08] LABS: PLATELET COUNT 209 10^3/uL (150-400)
[2017-08-03] MEDS: morphINE SR 30 MG TAB PO SCH ×2 (08:39→22:37)
[2017-08-03] MEDS: ACETAMINOPHEN 500 MG TAB PO SCH ×3 (08:39→22:37)
[2017-08-03] MEDS: METOCLOPRAMIDE 10 MG TAB PO SCH ×3 (08:39→17:54)
[2017-08-03] MEDS: SENNOSIDES/DOCUSATE SODIUM TAB PO SCH ×2 (08:39→22:38)
[2017-08-03] MEDS: ENOXAPARIN 40 MG/0.4 ML SYR SC SCH ×2 (08:39→22:39)
--- NOTE | 2017-08-03 21:25 | SOAPPROG ---
SOAP Progress Note Assessment/Plan: Assessment: POD # 4 s/p ventral hernia repair with stratice Pain control was good today and she was considering going home but over did it and now with more pain 1) She will decrease activity a bit Swollen arm this am that resolved 1) Ultrasound R arm to rule out DVT Likely home tomorrow S: Pain at site of repair left abdomen, tolerable O: Sitting in bed CTAB, decreased breath sounds, no increased work of breathing Regular rate KRISTYN drains with thin sanguineous discharge, dressing with scant stain PICC line intact without signs of infection, R hand was swollen this am and improved now) No signs of infection on abdomen. Soft, tender over site of repair Plan: 07/31/17 10:44 07/31/17 10:57 07/31/17 11:01 08/01/17 08:39 08/02/17 07:40 08/03/17 21:23 Objective: Vital Signs Temp Pulse Resp BP Pulse Ox 36.6 C 92 18 129/84 H 94 08/03/17 19:49 08/03/17 19:49 08/03/17 19:49 08/03/17 19:49 08/03/17 19:49 Laboratory Results 08/03/17 08:00 07/31/17 05:25 08/02/17 08/03/17 08/04/17 05:59 05:59 05:59 Intake Total 682 312 6695 Output Total 3720 4171 960 Daz[place]yp -506 -5061 1040 ICD10 Worksheet Patient Problems: Problems Problem Status Onset Abdominal pain Acute Chronic pain Acute Dehydration Acute Ventral hernia Acute Vomiting Acute
[2017-08-03] MEDS: ZOLPIDEM TARTRATE 5 MG TAB PO PRN (22:37)
[2017-08-04] MEDS: oxyCODONE IR 5 MG TAB PO SCH ×3 (04:56→15:32)
[2017-08-04] MEDS: ACETAMINOPHEN 500 MG TAB PO SCH ×2 (09:19→15:31)
[2017-08-04] MEDS: ENOXAPARIN 40 MG/0.4 ML SYR SC SCH (09:19)
[2017-08-04] MEDS: morphINE SR 30 MG TAB PO SCH (09:19)
[2017-08-04] MEDS: METOCLOPRAMIDE 10 MG TAB PO SCH ×2 (09:20→11:32)
[2017-08-04] MEDS: SENNOSIDES/DOCUSATE SODIUM TAB PO SCH (09:26)
[2017-08-04 15:39] VITALS: BP 122/71
--- NOTE | 2017-08-04 21:01 | SOAPPROG ---
SOAP Progress Note Assessment/Plan: Assessment: POD # 5 s/p ventral hernia repair with stratice Pain control better today DC home S: Pain at site of repair left abdomen, tolerable O: Sitting in bed CTAB, decreased breath sounds, no increased work of breathing Regular rate KRISTYN drains with thin sanguineous discharge, dressing with scant stain - will change prior to discharge No signs of infection on abdomen. Soft, tender over site of repair Plan: 07/31/17 10:44 07/31/17 10:57 07/31/17 11:01 08/01/17 08:39 08/02/17 07:40 08/03/17 21:23 08/04/17 21:00 Objective: Vital Signs Temp Pulse Resp BP Pulse Ox 36.7 C 89 14 122/71 H 95 08/04/17 15:39 08/04/17 15:39 08/04/17 15:39 08/04/17 15:39 08/04/17 15:39 Laboratory Results 08/03/17 08:00 07/31/17 05:25 08/03/17 08/04/17 08/05/17 05:59 05:59 05:59 Intake Total 700 2300 300 Output Total 4175 960 1895 Balance -3475 1340 -1595 ICD10 Worksheet Patient Problems: Problems Problem Status Onset Abdominal pain Acute Chronic pain Acute Dehydration Acute Ventral hernia Acute Vomiting Acute
--- NOTE | 2017-08-05 09:05 | GDS ---
[f rep st] DISCHARGE SUMMARY ADMISSION DIAGNOSIS: Ventral hernia. SECONDARY DIAGNOSES: 1. Complex regional pain syndrome. 2. Chronic pain. 3. Depression. 4. Anxiety. 5. Hypertension. REASON FOR ADMISSION: This is a very pleasant 57-year-old female whom we have seen in the past. She was admitted for surgical intervention, pain management, and observation. HOSPITAL COURSE: The patient was taken to surgery on 07/30/2017, by Dr. Samy Santos and Dr. Sanjiv Copeland for open ventral hernia repair with Strattice perforated with no immediate complications. KRISTYN drains were placed and Pharmacy has been consulted for pain management. Postop day #4, patient had mild right arm lymphedema where her PICC line was placed and ultrasound wa s ordered. Remainder of hospital course was unremarkable. CONDITION: The patient will be discharged home today in stable condition. DISCHARGE MEDICATIONS: Patient will resume at home pain medications. Please see EMR for further det ails. DISCHARGE INSTRUCTIONS: 1. Continue to monitor KRISTYN output and the KRISTYN drain and record measurements. 2. Activity: Avoid heavy lifting pushing or pulling for the next 6 weeks after surgery. 3. Diet recommendations: No restrictions on diet. 4. Change incision dressing if it becomes saturated. Otherwise, I will see her in my office next . 5. The patient can shower. 6. She will call us with any worsening symptoms, concerns, or questions in the meantime. /[id number]/MODL
== END 2017-08-04 16:30 | disposition home or self-care (01) | DRG 227 ==
LOC: F3N 09:37 → OBSVTOIN 13:32 → F3E 15:10
PROVIDERS: ADMIT Surgery; ATTEND Surgery
PROC: 0WUF0JZ Supplement Abdominal Wall with Synthetic Substitute, Open Approach (ICD-10-PCS; principal; 2017-07-30 11:00)
PROC: 02HV33Z Insertion of Infusion Device into Superior Vena Cava, Percutaneous Approach (ICD-10-PCS; 2017-07-30 11:00)
DX: K43.2 Incisional hernia without obstruction or gangrene (principal); I10 Essential (primary) hypertension; F41.8 Other specified anxiety disorders; G90.50 Complex regional pain syndrome I, unspecified
CPT/HCPCS: 97116-GP; 97161-GP; 97165-GO; 97535-GO; C1751; J0690; J1100; J1170; J1650; J2250; J2370; J2405; J2704; J2997; J3010; J3360; Q4130

== ENCOUNTER → 2017-12-27 | Outpatient (CLI) | payer MEDICAID | LOC: FIMAGING 16:57 | PROVIDERS: ATTEND Family Medicine | DX: M79.661 Pain in right lower leg (principal); M79.89 Other specified soft tissue disorders ==